=== PATIENT | male | born 1990 | race Caucasian/White ===

== ENCOUNTER 2022-06-16 12:35 | Emergency (ER) | payer BC ==
--- OUTSIDE RECORDS SUMMARY | 2022-06-16 12:39 | XMS REPORT | Continuity of Care Document ---
:1990 Author Organization [facility] t Address [address] [place] [address] Care Team Providers Name Role Phone Terrell West Primary Care Physician [phone] Problems This patient has no known problems. Allergies, Adverse Reactions, Alerts This patient has no known allergies or adverse reactions. Medications Ordered Filled Start Stop Current Ordering Indication Dosage Frequency Signature Comments Components Source Medication Medication Date Date Medication? Clinician (SIG) Name Name TAKE 1 2021-0 No 20 TABLET 9-28 TWICE 00:00: DAILY. 00 Dose 2021-0 No Unknown 9-28 00:00: 00 TAKE 1 2021-0 No TABLET 9-28 TWICE 00:00: DAILY. 00 Dose 2021-0 No Unknown 9-07 00:00: 00 Dose 2021-0 No Unknown 9-07 00:00: 00 Dose 2021-0 No Unknown 9-07 00:00: 00 INJECT 2021-0 No 100 15-20 UNITS 9-07 BELOW THE 00:00: SKIN TWICE 00 A DAY Vital Signs Vital Name Observation Time Observation Value Comments Source BP Systolic 2022-05-30 08:37:00 BP Diastolic 2022-05-30 08:37:00 Weight Measured 2022-05-30 08:37:00 205.40 pounds Height Measured 2022-05-30 08:37:00 71.00 inches Body Temperature 2022-05-30 08:37:00 Heart Rate 2022-05-30 08:37:00 Respiratory Rate 2022-05-30 08:37:00 BP Systolic 2022-05-24 13:34:00 122 mm[Hg] BP Diastolic 2022-05-24 13:34:00 83 mm[Hg] Weight Measured 2022-05-24 13:34:00 205.40 pounds Height Measured 2022-05-24 13:34:00 71.00 inches Body Temperature 2022-05-24 13:34:00 98.30 degrees Heart Rate 2022-05-24 13:34:00 65.00 /min Respiratory Rate 2022-05-24 13:34:00 17.00 /min BP Systolic 2022-05-17 16:30:00 115 mm[Hg] BP Diastolic 2022-05-17 16:30:00 74 mm[Hg] Weight Measured 2022-05-17 16:30:00 201.00 pounds Height Measured 2022-05-17 16:30:00 71.00 inches Body Temperature 2022-05-17 16:30:00 98.40 degrees Heart Rate 2022-05-17 16:30:00 73.00 /min Respiratory Rate 2022-05-17 16:30:00 17.00 /min Respiratory Rate 2022-04-26 11:08:00 BP Systolic 2022-04-26 11:08:00 113 mm[Hg] BP Diastolic 2022-04-26 11:08:00 77 mm[Hg] Weight Measured 2022-04-26 11:08:00 199.00 pounds Height Measured 2022-04-26 11:08:00 71.00 inches Body Temperature 2022-04-26 11:08:00 98.40 degrees Heart Rate 2022-04-26 11:08:00 69.00 /min Procedures This patient has no known procedures. Plan of Care Planned Activity Planned Date Details Comments Source Goal Plan of Care Note [code = 29835-6] Goal Plan of Care Note [code = 33126-3] Goal Plan of Care Note [code = 91751-6] Goal Plan of Care Note [code = 98249-6] Goal Plan of Care Note [code = 15611-7] Goal Plan of Care Note [code = 25198-2] Goal Plan of Care Note [code = 41983-8] Goal Plan of Care Note [code = 58905-4] Goal Plan of Care Note [code = 82698-3] Goal Plan of Care Note [code = 28460-9] Goal Plan of Care Note [code = 96745-1] Goal Plan of Care Note [code = 27376-8] Goal Plan of Care Note [code = 10844-7] Goal Plan of Care Note [code = 01533-0] Goal Plan of Care Note [code = 92235-8] Goal Plan of Care Note [code = 79291-1] Goal Plan of Care Note [code = 40011-9] Goal Plan of Care Note [code = 94505-3] Goal Plan of Care Note [code = 58267-2] Goal Plan of Care Note [code = 76143-4] Goal Plan of Care Note [code = 05674-6] Goal Plan of Care Note [code = 21158-4] Goal Plan of Care Note [code = 93995-5] Goal Plan of Care Note [code = 84901-3] Goal Plan of Care Note [code = 98153-5] Goal Plan of Care Note [code = 11331-7] Goal Plan of Care Note [code = 90546-1] Goal Plan of Care Note [code = 17533-1] Goal Plan of Care Note [code = 43296-1] Goal Plan of Care Note [code = 56007-1] Goal Plan of Care Note [code = 82734-9] Goal Plan of Care Note [code = 53598-6] Goal Plan of Care Note [code = 11682-5] Encounters Start End Encounter Admission Attending Care Care Encounter Source Date/Time Date/Time Type Type Clinicians Facility Department ID 2022-05-30 2022-05-30 Outpatient [id number] 00:00:00 00:00:00 Visit [id number] -08a1-6lb 1i7-2wrxo0 ph69x1tx6 6f0de3 2022-05-24 2022-05-24 Outpatient [facility] [id number] Johann 13:25:23 13:25:23 [id number] F Dylon 2022-05-24 2022-05-24 Outpatient [id number] 00:00:00 00:00:00 Visit 9e11-6z73 w38-4l32-1 -8616-bb7 616-bb7bb5 [id number] 3rf160 2022-05-17 2022-05-17 Outpatient [id number] 00:00:00 00:00:00 Visit 24s6-5em5 3w3-2ik3-9 -8r8u-ayn q8r-iilc80 i23racpbj [facility] 2022-04-26 2022-04-26 Outpatient [id number] 00:00:00 00:00:00 Visit i49b-75mo 91d-41dc-9 -9142-545 [id number] hg2631 Results Test Description Test Time Test Comments Results Result Comments Source CULTURE, URINE 2022-05-27 SPECIMEN NUMBER: 16:24:13 [id number] CULTURE, URINE SPECIMEN NUMBER: [id number] SPECIMEN COMMENT: URINE SOURCE: URINE REPORT STATUS: FINAL ISOLATE NUMBER 1: ORGANISM: 05/26/2022 >100,000 CFU/ML GRAM NEGATIVE BACILLI IDENTIFICATION: 05/27/2022 PROTEUS MIRABILIS P. MIRABILIS AMOX ICILLIN/CA SENSITIVE <=8/4AMPICILLIN RESISTANT >16CEFAZOLIN SENSITIVE 4CEFTRIAXONE SENSITIVE <=1CIPROFLOXACIN SENSITIVE <=1LEVOFLOXACIN SENSITIVE <=2NITROFURANTOIN RESISTANT >64PIP/TAZOBAC SENSITIVE <=16TETRACYCLINE RESISTANT >8TOBRAMYCIN RESISTANT >8TRIMETH/SULFA RESISTANT >2/38 NOTE: NUMBERS DISPLAYED REPRESENT MINIMUM INHIBITORY CONCENTRATION (ALINE) WHICH IS EXPRESSED IN MCG/ML. CULTURE, URINE 2022-05-27 00:00:00 Test Item Value Reference Range Interpretation Comme nts CULTURE, URINE (test code = 41564) SPECIMEN NUMBER: [id number] CULTURE, [id number] 00:00:00 Test Item Value Reference Range Interpretation Comments CULTURE, URINE (test SPECIMEN NUMBER: code = 96902) [id number] CULTURE, [id number] 00:00:00 Test Item Value Reference Range Interpretation Comments CULTURE, URINE (test SPECIMEN NUMBER: code = 92505) [id number] CULTURE, [id number] 00:00:00 Test Item Value Reference Range Interpretation Comments CULTURE, URINE (test SPECIMEN NUMBER: code = 68134) [id number] CT/NG, NAAT, [id number] 19:07:28 Test Item Value Reference Range Interpretation Comments GONORRHEA, NAAT NEGATIVE NEGATIVE IMPORTA NT NOTICE: SEE (test code = [place] [address]) [email or web address] Note: Assay methodology is nucleic acid amplification b y orthodontist assistant m ediated amplification ( TMA) utilizing the A ptima Combo 2 Assay. CHLAMYDIA, NAAT NEGATIVE NEGATIVE IMPORTA NT NOTICE: SEE (test code = [place] [address]) [email or web address] Note: Assay methodology is nucleic acid amplification b y orthodontist assistant m ediated amplification ( TMA) utilizing the A ptima Combo 2 Assay. UNLESS OTHERWISE INDICATED, ALL TESTING PERFORMED [facility] [address] [place] [id number] [place] [address] DIRECTOR: KUSHAL AGUSTIN M.D. [place] NUMBER [id number] CAP ACCREDITATION N O. [id number] CT/NG, TMA, [id number] 00:00:00 Test Item Value Reference Range Interpretation Comments GONORRHEA, NAAT (test code = 29139) NEGATIVE CHLAMYDIA, NAAT (test code = 42371) NEGATIVE CT/NG, TMA, [id number] 00:00:00 Test Item Value Reference Range Interpretation Comments GONORRHEA, NAAT (test code = 53213) NEGATIVE CHLAMYDIA, NAAT (test code = 60252) NEGATIVE CT/NG, TMA, [id number] 00:00:00 Test Item Value Reference Range Interpretation Comments GONORRHEA, NAAT (test code = 17758) NEGATIVE CHLAMYDIA, NAAT (test code = 39350) NEGATIVE CT/NG, TMA, [id number] 00:00:00 Test Item Value Reference Range Interpretation Comments GONORRHEA, NAAT (test code = 20508) NEGATIVE CHLAMYDIA, NAAT (test code = 23200) NEGATIVE H. PYLORI (BREATH)2022-05-19 15:05:57 Test Item Value Reference Range Interpretation Comments H. PYLORI (BREATH) (test code = NEGATIVE NEGATIVE 17664) [id number] 04:16:31 Test Item Value Reference Range Interpretation Comments AMYLASE (test code = 2205) 37 U/L 28-100 [id number] 04:16:31 Test Item Value Reference Range Interpretation Comments LIPASE (test code = 18 U/L 13-60 UNLESS OTHERWISE 2057) INDICATED, ALL TESTING PERFORMED [facility] [address] [place] [address] [facility] DIRECTOR: KUSHAL AGUSTIN M.D. CLIA NUMBER [id number] CAP ACCREDITATION N O. [id number] 00:00:00 Test Item Value Reference Range Interpretation Comments AMYLASE (test code = 2205) 37 U/L [id number] 00:00:00 Test Item Value Reference Range Interpretation Comments LIPASE (test code = 2057) 18 U/L [id number] 00:00:00 Test Item Value Reference Range Interpretation Comments LIPASE (test code = 2057) 18 U/L [id number] 00:00:00 Test Item Value Reference Range Interpretation Comments LIPASE (test code = 2057) 18 U/L H. PYLORI (BREATH)2022-05-19 00:00:00 Test Item Value Reference Range Interpretation Comments H. PYLORI (BREATH) (test code = NEGATIVE 09726) H. PYLORI (BREATH)2022-05-19 00:00:00 Test Item Value Reference Range Interpretation Comments H. PYLORI (BREATH) (test code = NEGATIVE 44081) [id number] 00:00:00 Test Item Value Reference Range Interpretation Comments AMYLASE (test code = 2205) 37 U/L [id number] 00:00:00 Test Item Value Reference Range Interpretation Comments AMYLASE (test code = 2205) 37 U/L [id number] 00:00:00 Test Item Value Reference Range Interpretation Comments LIPASE (test code = 2057) 18 U/L [id number] 00:00:00 Test Item Value Reference Range Interpretation Comments LIPASE (test code = 2057) 18 U/L [id number] 00:00:00 Test Item Value Reference Range Interpretation Comments LIPASE (test code = 2057) 18 U/L H. PYLORI (BREATH)2022-05-19 00:00:00 Test Item Value Reference Range Interpretation Comments H. PYLORI (BREATH) (test code = NEGATIVE 41337) H. PYLORI (BREATH)2022-05-19 00:00:00 Test Item Value Reference Range Interpretation Comments H. PYLORI (BREATH) (test code = NEGATIVE 39153) [id number] 00:00:00 Test Item Value Reference Range Interpretation Comments AMYLASE (test code = 2205) 37 U/L HEMOGLOBIN [id number] 23:37:11 Test Item Value Reference Range Interpretation Comments HEMOGLOBIN A1c (test 10.4 % 4.2-5.6 H AMERI CAN DIABETES code = 59288) ASSOCIATION IDELINES FOR HGB A1C: PREDIABETES/INC REASED RISK . . . . . . . 5 .7-6.4% DIAGNOSIS OF DI ABETES . . . . . . . . . >=6 .5% WITH CONFIRMATION OR APPROPRIATE SYMPTOMS NOTE: ASSAY MAY BE AFFECTED BY HEMOGLOBINOPATH IES (SICKLE CELL ANEMIA, S- C DISEASE, OTHERS) OR CHAUNCEY FICIALLY LOWERED BY DECR EASED RED CELL SURVIVAL ( HEMOLYTIC ANEMIAS, BLOOD LOSS, ETC.). CONSIDER ALTERN ATE TESTING OR LABORATORY C ONSULTATION. UNLESS OTHERWIS E INDICATED, ALL TESTING PER FORMED ATCLINICAL PATH [facility]. [address] [place] [address] LABORATORY DIRE CTOR: Lelo SOLOMON. CLIA NUMBER [id number] CAP ACCREDITATION N O. [id number] COMPREHENSIVE METABOLIC [id number] 06:29:07 Test Item Value Reference Range Interpretation Comments GLUCOSE (test code = 264 MG/DL 70-99 H 2216) BUN (test code = 9 MG/DL 6-20 2207) CREATININE (test 0.68 MG/DL 0.80-1.40 L code = 2214) eGFR (2020 CKD-EPI) 127 >60 (test code = 14118) ML/MIN/1.73 CALC BUN/CREAT (test 13 RATIO 6-28 code = 2235) SODIUM (test code = 143 MEQ/L 874-316 4968) POTASSIUM (test code 4.6 MEQ/L 3.5-5.4 = 2228) CHLORIDE (test code 105 MEQ/L 95-107 = 2215) CARBON DIOXIDE (test 24 MEQ/L 19-31 code = 2206) CALCIUM (test code = 9.3 MG/DL 8.5-10.5 2208) PROTEIN, TOTAL (test 6.8 G/DL 6.1-8.3 code = 2229) ALBUMIN (test code = 4.1 G/DL 3.5-5.2 2200) CALC GLOBULIN (test 2.7 G/DL 1.9-3.7 code = 2240) CALC A/G RATIO (test 1.5 RATIO 1.0-2.6 code = 2234) BILIRUBIN, TOTAL 0.4 MG/DL See_Comment [Automated message] (test code = 220) The syste m which generated this result transmit stephen reference range : <=1.2. The refe rence range was not u sed to interpret th is result as normal/abnormal . ALKALINE PHOSPHATASE 76 U/L 40-112 (test code = 2203) AST (test code = 17 U/L 9-50 2217) ALT (test code = 20 U/L 5-50 2218) LIPID [id number] 06:29:07 Test Item Value Reference Range Interpretation Comments CHOLESTEROL (test 172 MG/DL <200 code = 2210) TRIGLYCERIDES (test 84 MG/DL <150 code = 2232) HDL CHOLESTEROL (test 39 MG/DL >39 L code = 2220) CALC LDL CHOL (test 115 MG/DL <100 H NOTE: C ALCULATED LDL code = 2237) IS BASED ON MELQUIADES-LLAMAS METHOD WHICHINCLUDES ADJUSTABLE TRIGLYCERIDE:VL DL CHOLESTEROL RAT IO.THIS FACTOR VARIES B Y MEASURED TRIGLY CERIDE AND NON-HDLCHOL ESTEROL CONCENTRATIONS WITH INCREASED CALCU LATED LDL SEENIN HIGH ER TRIGLYCERIDE OR LOWER NON-HDL SPECIME NS. FOR MOREINFORMATION , SEE CLIENT ANNOUNCE MENT AT [email or web address] RISK RATIO LDL/HDL 2.95 RATIO <3.55 (test code = 2238) LIPID [id number] 00:00:00 Test Item Value Reference Range Interpretation Comments CHOLESTEROL (test code = 2210) 172 MG/DL TRIGLYCERIDES (test code = 2232) 84 MG/DL HDL CHOLESTEROL (test code = 2220) 39 MG/DL CALC LDL CHOL (test code = 2237) 115 MG/DL RISK RATIO LDL/HDL (test code = 2.95 RATIO 2238) HEMOGLOBIN [id number] 00:00:00 Test Item Value Reference Range Interpretation Comments HEMOGLOBIN A1c (test code = 47637) 10.4 % HEMOGLOBIN [id number] 00:00:00 Test Item Value Reference Range Interpretation Comments HEMOGLOBIN A1c (test code = 94088) 10.4 % HEMOGLOBIN [id number] 00:00:00 Test Item Value Reference Range Interpretation Comments HEMOGLOBIN A1c (test code = 12279) 10.4 % COMPREHENSIVE METABOLIC [id number] 00:00:00 Test Item Value Reference Range Interpretation Comments GLUCOSE (test code = 2217) 264 MG/DL BUN (test code = 2208) 9 MG/DL CREATININE (test code = 2214) 0.68 MG/DL eGFR (2020 CKD-EPI) (test 127 ML/MIN/1.73 code = 78532) CALC BUN/CREAT (test code = 13 RATIO 2235) SODIUM (test code = 2231) 143 MEQ/L POTASSIUM (test code = 2228) 4.6 MEQ/L CHLORIDE (test code = 2215) 105 MEQ/L CARBON DIOXIDE (test code = 24 MEQ/L 2205) CALCIUM (test code = 2209) 9.3 MG/DL PROTEIN, TOTAL (test code = 6.8 G/DL 2228) ALBUMIN (test code = 2201) 4.1 G/DL CALC GLOBULIN (test code = 2.7 G/DL 2239) CALC A/G RATIO (test code = 1.5 RATIO 2233) BILIRUBIN, TOTAL (test code = 0.4 MG/DL 2206) ALKALINE PHOSPHATASE (test 76 U/L code = 2204) AST (test code = 2218) 17 U/L ALT (test code = 2219) 20 U/L COMPREHENSIVE METABOLIC [id number] 00:00:00 Test Item Value Reference Range Interpretation Comments GLUCOSE (test code = 2217) 264 MG/DL BUN (test code = 2208) 9 MG/DL CREATININE (test code = 2214) 0.68 MG/DL eGFR (2020 CKD-EPI) (test 127 ML/MIN/1.73 code = 28861) CALC BUN/CREAT (test code = 13 RATIO 2235) SODIUM (test code = 2231) 143 MEQ/L POTASSIUM (test code = 2228) 4.6 MEQ/L CHLORIDE (test code = 2215) 105 MEQ/L CARBON DIOXIDE (test code = 24 MEQ/L 220) CALCIUM (test code = 2209) 9.3 MG/DL PROTEIN, TOTAL (test code = 6.8 G/DL 2228) ALBUMIN (test code = 2201) 4.1 G/DL CALC GLOBULIN (test code = 2.7 G/DL 2239) CALC A/G RATIO (test code = 1.5 RATIO 2234) BILIRUBIN, TOTAL (test code = 0.4 MG/DL 2206) ALKALINE PHOSPHATASE (test 76 U/L code = 2204) AST (test code = 2218) 17 U/L ALT (test code = 2219) 20 U/L LIPID [id number] 00:00:00 Test Item Value Reference Range Interpretation Comments CHOLESTEROL (test code = 2210) 172 MG/DL TRIGLYCERIDES (test code = 2232) 84 MG/DL HDL CHOLESTEROL (test code = 2220) 39 MG/DL CALC LDL CHOL (test code = 2237) 115 MG/DL RISK RATIO LDL/HDL (test code = 2.95 RATIO 2238) LIPID [id number] 00:00:00 Test Item Value Reference Range Interpretation Comments CHOLESTEROL (test code = 2210) 172 MG/DL TRIGLYCERIDES (test code = 2232) 84 MG/DL HDL CHOLESTEROL (test code = 2220) 39 MG/DL CALC LDL CHOL (test code = 2237) 115 MG/DL RISK RATIO LDL/HDL (test code = 2.95 RATIO 2238) HEMOGLOBIN [id number] 00:00:00 Test Item Value Reference Range Interpretation Comments HEMOGLOBIN A1c (test code = 37669) 10.4 % HEMOGLOBIN [id number] 00:00:00 Test Item Value Reference Range Interpretation Comments HEMOGLOBIN A1c (test code = 34325) 10.4 % HEMOGLOBIN [id number] 00:00:00 Test Item Value Reference Range Interpretation Comments HEMOGLOBIN A1c (test code = 85350) 10.4 % COMPREHENSIVE METABOLIC [id number] 00:00:00 Test Item Value Reference Range Interpretation Comments GLUCOSE (test code = 2217) 264 MG/DL BUN (test code = 2208) 9 MG/DL CREATININE (test code = 2214) 0.68 MG/DL eGFR (2020 CKD-EPI) (test 127 ML/MIN/1.73 code = 99423) CALC BUN/CREAT (test code = 13 RATIO 2235) SODIUM (test code = 2231) 143 MEQ/L POTASSIUM (test code = 2228) 4.6 MEQ/L CHLORIDE (test code = 2215) 105 MEQ/L CARBON DIOXIDE (test code = 24 MEQ/L 2205) CALCIUM (test code = 2209) 9.3 MG/DL PROTEIN, TOTAL (test code = 6.8 G/DL 2228) ALBUMIN (test code = 2201) 4.1 G/DL CALC GLOBULIN (test code = 2.7 G/DL 2240) CALC A/G RATIO (test code = 1.5 RATIO 2234) BILIRUBIN, TOTAL (test code = 0.4 MG/DL 2206) ALKALINE PHOSPHATASE (test 76 U/L code = 2204) AST (test code = 2218) 17 U/L ALT (test code = 2219) 20 U/L COMPREHENSIVE METABOLIC [id number] 00:00:00 Test Item Value Reference Range Interpretation Comments GLUCOSE (test code = 2217) 264 MG/DL BUN (test code = 2208) 9 MG/DL CREATININE (test code = 2214) 0.68 MG/DL eGFR (2020 CKD-EPI) (test 127 ML/MIN/1.73 code = 05824) CALC BUN/CREAT (test code = 13 RATIO 2235) SODIUM (test code = 2231) 143 MEQ/L POTASSIUM (test code = 2228) 4.6 MEQ/L CHLORIDE (test code = 2215) 105 MEQ/L CARBON DIOXIDE (test code = 24 MEQ/L 2205) CALCIUM (test code = 2209) 9.3 MG/DL PROTEIN, TOTAL (test code = 6.8 G/DL 2228) ALBUMIN (test code = 2201) 4.1 G/DL CALC GLOBULIN (test code = 2.7 G/DL 2240) CALC A/G RATIO (test code = 1.5 RATIO 2234) BILIRUBIN, TOTAL (test code = 0.4 MG/DL 2206) ALKALINE PHOSPHATASE (test 76 U/L code = 2204) AST (test code = 2218) 17 U/L ALT (test code = 2219) 20 U/L LIPID [id number] 00:00:00 Test Item Value Reference Range Interpretation Comments CHOLESTEROL (test code = 2210) 172 MG/DL TRIGLYCERIDES (test code = 2232) 84 MG/DL HDL CHOLESTEROL (test code = 2220) 39 MG/DL CALC LDL CHOL (test code = 2237) 115 MG/DL RISK RATIO LDL/HDL (test code = 2.95 RATIO 2238) LIPID [id number] 00:00:00 Test Item Value Reference Range Interpretation Comments CHOLESTEROL (test code = 2210) 172 MG/DL TRIGLYCERIDES (test code = 2232) 84 MG/DL HDL CHOLESTEROL (test code = 2220) 39 MG/DL CALC LDL CHOL (test code = 2237) 115 MG/DL RISK RATIO LDL/HDL (test code = 2.95 RATIO 2238) HEMOGLOBIN [id number] 00:00:00 Test Item Value Reference Range Interpretation Comments HEMOGLOBIN A1c (test code = 97390) 10.4 % HEMOGLOBIN [id number] 00:00:00 Test Item Value Reference Range Interpretation Comments HEMOGLOBIN A1c (test code = 66733) 10.4 % HEMOGLOBIN [id number] 00:00:00 Test Item Value Reference Range Interpretation Comments HEMOGLOBIN A1c (test code = 06376) 10.4 % COMPREHENSIVE METABOLIC [id number] 00:00:00 Test Item Value Reference Range Interpretation Comments GLUCOSE (test code = 2217) 264 MG/DL BUN (test code = 2208) 9 MG/DL CREATININE (test code = 2214) 0.68 MG/DL eGFR (2020 CKD-EPI) (test 127 ML/MIN/1.73 code = 92573) CALC BUN/CREAT (test code = 13 RATIO 2235) SODIUM (test code = 2231) 143 MEQ/L POTASSIUM (test code = 2228) 4.6 MEQ/L CHLORIDE (test code = 2215) 105 MEQ/L CARBON DIOXIDE (test code = 24 MEQ/L 2205) CALCIUM (test code = 2209) 9.3 MG/DL PROTEIN, TOTAL (test code = 6.8 G/DL 2228) ALBUMIN (test code = 2201) 4.1 G/DL CALC GLOBULIN (test code = 2.7 G/DL 2239) CALC A/G RATIO (test code = 1.5 RATIO 2234) BILIRUBIN, TOTAL (test code = 0.4 MG/DL 2206) ALKALINE PHOSPHATASE (test 76 U/L code = 2204) AST (test code = 2218) 17 U/L ALT (test code = 2219) 20 U/L COMPREHENSIVE METABOLIC [id number] 00:00:00 Test Item Value Reference Range Interpretation Comments GLUCOSE (test code = 2217) 264 MG/DL BUN (test code = 2208) 9 MG/DL CREATININE (test code = 2214) 0.68 MG/DL eGFR (2020 CKD-EPI) (test 127 ML/MIN/1.73 code = 90989) CALC BUN/CREAT (test code = 13 RATIO 2235) SODIUM (test code = 2231) 143 MEQ/L POTASSIUM (test code = 2228) 4.6 MEQ/L CHLORIDE (test code = 2215) 105 MEQ/L CARBON DIOXIDE (test code = 24 MEQ/L 2205) CALCIUM (test code = 220) 9.3 MG/DL PROTEIN, TOTAL (test code = 6.8 G/DL 2228) ALBUMIN (test code = 220) 4.1 G/DL CALC GLOBULIN (test code = 2.7 G/DL 2239) CALC A/G RATIO (test code = 1.5 RATIO 2233) BILIRUBIN, TOTAL (test code = 0.4 MG/DL 2206) ALKALINE PHOSPHATASE (test 76 U/L code = 2204) AST (test code = 2218) 17 U/L ALT (test code = 2219) 20 U/L LIPID [id number] 00:00:00 Test Item Value Reference Range Interpretation Comments CHOLESTEROL (test code = 2210) 172 MG/DL TRIGLYCERIDES (test code = 2232) 84 MG/DL HDL CHOLESTEROL (test code = 2220) 39 MG/DL CALC LDL CHOL (test code = 2237) 115 MG/DL RISK RATIO LDL/HDL (test code = 2.95 RATIO 8)
[2022-06-16 13:10] LABS: Absolute Lymphocytes (CBC) 1.9 K/uL (0.7-4.9); Hematocrit 42.7 % (39.6-49.0); Lymphocytes % 32.8 % (15.3-44.8); MCV 89.5 fL (80-100); MPV 7.6 fL (7.6-11.3); RBC Red Blood Cell Count 4.77 M/uL (4.33-5.43)
[2022-06-16 13:26] LABS: Potassium 3.9 mmol/L (3.5-5.1)
[2022-06-16] MEDS ORDERED: NA CHLORIDE 0.9% 1,000 ML ONE (13:27)
[2022-06-16] MEDS ORDERED: ONDANSETRON 4 MG/2 ML VIAL ONE (14:04)
--- NOTE | 2022-06-16 14:43 | ER ---
Nurse's Notes [facility] Name: Altaf Perez Age: 32 yrs Sex: Male : 1990 Arrival Date: 06/16/2022 Time: 12:37 Bed 11 Private MD: Diagnosis: Influenza Presentation: 06/16 12:54 Chief complaint: Patient states: Pt reports fatigue, nausea, sore throat, body aches, kb3 frequent urination, headache xseveral days. Unknown temp at home BGL this morning 147, took 10u of Novolog after eating. BGL 223 in triage. Coronavirus screen: Vaccine status: Patient reports being unvaccinated. Client denies travel out of the [place] in the last 14 days. Ebola Screen: Patient negative for fever greater than or equal to 101.5 degrees Fahrenheit, and additional compatible Ebola Virus Disease symptoms Patient denies exposure to infectious person. Patient denies travel to an Ebola-affected area in the 21 days before illness onset. Initial Sepsis Screen: Does the patient meet any 2 criteria? No. Patient's initial sepsis screen is negative. Does the patient have a suspected source of infection? No. Patient's initial sepsis screen is negative. Risk Assessment: Do you want to hurt yourself or someone else? Patient reports no desire to harm self or others. Onset of symptoms was June 11, 2022. 12:54 Method Of Arrival: Ambulatory kb3 12:54 Acuity: CHRISTIANA 3 kb3 Triage Assessment: 13:00 General: Appears in no apparent distress. ill, Behavior is calm, cooperative. Pain: kb3 Complains of pain in head, chest, right arm, left arm, right leg and left leg Pain does not radiate. Pain currently is 6 out of 10 on a pain scale. Quality of pain is described as aching. Historical: - Allergies: 13:00 No Known Allergies; kb3 - PMHx: 13:00 IDDM; Hypercholesterolemia; kb3 - PSHx: 13:00 None; kb3 - Immunization history:: Adult Immunizations up to date, Client reports having NOT received the Covid vaccine. Last tetanus immunization: up to date. - Social history:: Smoking status: Patient denies any tobacco usage or history of. Screenin:01 Abuse screen: Denies threats or abuse. Denies injuries from another. Nutritional hb screening: No deficits noted. Tuberculosis screening: No symptoms or risk factors identified. Fall Risk None identified. Assessment: 14:00 Reassessment: Patient appears in no apparent distress at this time. hb 15:00 Reassessment: Patient appears in no apparent distress at this time. Patient and/or hb family updated on plan of care and expected duration. Pain level reassessed. Patient is alert, oriented x 3, equal unlabored respirations, skin warm/dry/pink. Vital Signs: 12:54 BP 129 / 74; Pulse 82; Resp 16; Temp 98; Pulse Ox 100% ; Weight 89.81 kg; Height 5 ft. kb3 11 in. (180.34 cm); Pain 6/10; 14:30 BP 117 / 68; Pulse 82; Resp 16; Pulse Ox 99% on R/A; hb 12:54 Body Mass Index 27.61 (89.81 kg, 180.34 cm) kb3 ED Course: 12:37 Patient arrived in ED. as 12:41 Faustino López PA is PHCP. [facility] 12:41 David Hardy DO is Attending Physician. [facility] 13:00 Triage completed. kb3 13:00 Arm band placed on right wrist. kb3 13:15 Patient has correct armband on for positive identification. hb 13:20 Inserted saline lock: 20 gauge in right antecubital area, using aseptic technique. zm Blood collected. 13:20 SARS-COV-2 RT PCR (Document "Date of Onset" if Symptomatic) Sent. zm 13:20 Strep Sent. zm 13:20 Influenza Screen (a \\T\\ B) Sent. zm 13:20 BMP Sent. zm 13:21 SARS-COV-2 RT PCR (Document "Date of Onset" if Symptomatic) Sent. zm 13:25 Caterina Rothman, RN is Primary Nurse. hb 15:01 No provider procedures requiring assistance completed. IV discontinued, intact, hb bleeding controlled, No redness/swelling at site. Administered Medications: 13:40 Drug: NS 0.9% 1000 ml Route: IV; Rate: 1 bolus; Site: right antecubital; hb 14:44 Follow up: Response: No adverse reaction; IV Status: Completed infusion; IV Intake: hb 1000ml 14:05 Drug: Zofran (Ondansetron) 4 mg Route: IVP; Site: right antecubital; hb 15:00 Follow up: Response: No adverse reaction hb 14:44 Drug: Tamiflu (oseltamivir) 75 mg Route: PO; hb 15:00 Follow up: Response: Medication administered at discharge. hb Medication: 15:02 VIS not applicable for this client. hb Point of Care Testing: Blood Glucose: 13:02 Blood Glucose: 223 mg/dL; kb3 Ranges: Intake: 14:44 IV: 1000ml; Total: 1000ml. hb Outcome: 14:42 Discharge ordered by MD. valente 15:01 Discharged to home ambulatory. hb 15:01 Condition: stable 15:01 Discharge instructions given to patient, Instructed on discharge instructions, follow up and referral plans. medication usage, Demonstrated understanding of instructions, follow-up care, medications, Prescriptions given X 1. 15:02 Patient left the ED. hb Signatures: Faustino López PA PA jmm Martinez, Amelia as Baxter, Heather, RN RN Sheryl Escobar Kelly, RN RN kb3
--- NOTE | 2022-06-16 14:43 | EDPHYS ---
Physician Documentation [facility] Name: Altaf Perez Age: 32 yrs Sex: Male : 1990 Arrival Date: 06/16/2022 Time: 12:37 Bed 11 Private MD: ED Physician David Hardy HPI: 06/16 13:01 This 32 yrs old Male presents to ER via Ambulatory with complaints of dka. [facility] 13:01 Onset: The symptoms/episode began/occurred gradually, 1 day(s) ago. This is a [facility] 32-year-old male with history of type 1 diabetes and presents emerged part with complaints of body aches, nausea, increased urination. Patient is concerned he might be in DKA. Also complains of sore throat. Denies shortness of breath.. Historical: - Allergies: 13:00 No Known Allergies; kb3 - PMHx: 13:00 IDDM; Hypercholesterolemia; kb3 - PSHx: 13:00 None; kb3 - Immunization history:: Adult Immunizations up to date, Client reports having NOT received the Covid vaccine. Last tetanus immunization: up to date. - Social history:: Smoking status: Patient denies any tobacco usage or history of. ROS: 13:01 Constitutional: Positive for body aches. [facility] 13:01 ENT: Positive for sore throat. 13:01 Respiratory: Positive for cough. 13:01 Abdomen/GI: Positive for nausea. 13:01 All other systems are negative. Exam: 13:01 Constitutional: This is a well developed, well nourished patient who is awake, alert, jmm and in no acute distress. Head/Face: atraumatic. Eyes: EOMI, no conjunctival erythema appreciated ENT: Moist Mucus Membranes Neck: Trachea midline, Supple Chest/axilla: Normal chest wall appearance and motion. Cardiovascular: Regular rate and rhythm. No edema appreciated Respiratory: Normal respirations, no respiratory distress appreciated Abdomen/GI: Non distended Back: Normal ROM Skin: General appearance color normal MS/ Extremity: Moves all extremities, no obvious deformities appreciated, no edema noted to the lower extremities Neuro: Awake and alert Psych: Behavior is normal, Mood is normal, Patient is cooperative and pleasant Vital Signs: 12:54 BP 129 / 74; Pulse 82; Resp 16; Temp 98; Pulse Ox 100% ; Weight 89.81 kg; Height 5 ft. kb3 11 in. (180.34 cm); Pain 6/10; 14:30 BP 117 / 68; Pulse 82; Resp 16; Pulse Ox 99% on R/A; hb 12:54 Body Mass Index 27.61 (89.81 kg, 180.34 cm) kb3 MDM: 12:59 Patient medically screened. [facility] 14:40 Data reviewed: vital signs, nurses notes. Counseling: I had a detailed discussion with [facility] the patient and/or guardian regarding: the historical points, exam findings, and any diagnostic results supporting the discharge/admit diagnosis, lab results, the need for outpatient follow up, to return to the emergency department if symptoms worsen or persist or if there are any questions or concerns that arise at home. ED course: Patient is alert and non toxic in appearance in the ED. No signs of resp distress. patient able to tolerate PO in the ED. Advised to follow up with pc p and otherwise given strict return precautions. . 06/16 12:45 Order name: BMP; Complete Time: 13:35 [facility] 06/16 12:45 Order name: CBC with Diff; Complete Time: 13:23 [facility] 06/16 12:45 Order name: Influenza Screen (a \\T\\ B); Complete Time: 13:54 [facility] 06/16 12:45 Order name: Strep; Complete Time: 13:54 [facility] 06/16 12:45 Order name: SARS-COV-2 RT PCR (Document "Date of Onset" if Symptomatic); Complete Time: [facility] 14:03 06/16 13:14 Order name: Glucose, Ancillary Testing; Complete Time: 13:23 [facility] 06/16 12:45 Order name: Saline Lock; Complete Time: 13:20 [facility] 06/16 13:53 Order name: Throat Culture EDNM Administered Medications: 13:40 Drug: NS 0.9% 1000 ml Route: IV; Rate: 1 bolus; Site: right antecubital; hb 14:44 Follow up: Response: No adverse reaction; IV Status: Completed infusion; IV Intake: hb 1000ml 14:05 Drug: Zofran (Ondansetron) 4 mg Route: IVP; Site: right antecubital; hb 15:00 Follow up: Response: No adverse reaction hb 14:44 Drug: Tamiflu (oseltamivir) 75 mg Route: PO; 15:00 Follow up: Response: Medication administered at discharge. Point of Care Testing: Blood Glucose: 13:02 Blood Glucose: 223 mg/dL; kb3 Ranges: Critical Glucose Levels:Adult <50 mg/dl or >400 mg/dl <40 mg/dl or >180 mg/dl Disposition: 13:44 Co-signature as Attending Physician, David Hardy DO I was immediately available on-site ms3 in the Emergency Department for consultation in the care of the patient.. Disposition Summary: 06/16/22 14:42 Discharge Ordered Location: Home jm Condition: Stable jm Diagnosis - Influenza jm Followup: jmm - With: Private Physician - When: 2 - 3 days - Reason: Recheck today's complaints, Continuance of care, Re-evaluation by your physician Discharge Instructions: - Discharge Summary Sheet jmm - Influenza, Adult [facility] Forms: - Medication Reconciliation Form [facility] - Thank You Letter [facility] - Antibiotic Education [facility] - Prescription Opioid Use [facility] - Work release form eb Prescriptions: - ondansetron 4 mg Oral tablet,disintegrating - take 1 tablet by ORAL route every 4-6 hours As needed; 20 tablet; Refills: 0, [facility] Product Selection Permitted Signatures: Dispatcher [employer] Faustino Silvestre PA PA [facility] Caterina Rothman, RN RN David Hardy DO DO ms3 Bhumika Timmons, MARVIN RN kb3
[2022-06-16] MEDS ORDERED: OSELTAMIVIR 75 MG CAP ONE (14:52)
[2022-06-16 15:29] VITALS: TEMP 98
[2022-06-16 15:30] VITALS: BP 117/68; O2SAT 99
== END 2022-06-16 15:02 | disposition home or self-care (01) ==
LOC: ER 12:35
DX: J11.1 Influenza due to unidentified influenza virus with other respiratory manifestations (principal); Z20.822 Contact with and (suspected) exposure to COVID-19; E10.9 Type 1 diabetes mellitus without complications
CPT/HCPCS: 96361; 87070; 85025; 80048; 36415; 82947; 87081; 87804 ×2; 96374; 99284; U0003; J7030; J2405

== ENCOUNTER 2022-08-09 05:55 | Emergency (ER) | payer BC ==
--- OUTSIDE RECORDS SUMMARY | 2022-08-09 05:59 | XMS REPORT | Continuity of Care Document ---
:1990 Author Organization [facility] t Address [address] [place] [address] Care Team Providers Name Role Phone Bina Ochoa Primary Care Physician [phone] Problems This patient has no known problems. Allergies, Adverse Reactions, Alerts This patient has no known allergies or adverse reactions. Medications Ordered Filled Start Stop Current Ordering Indication Dosage Frequency Signature Comments Components Source Medication Medication Date Date Medication? Clinician (SIG) Name Name TAKE 2021-08 No TABLET 2-13 DAILY. 00:00: 00 TAKE 2021-08 No CAPSULE BY 2-13 MOUTH DAILY 00:00: 00 LACTULOSE 2021-08 No ENCEPHALOPA 2-13 THY 10 00:00: GM/15ML 00 LACTULOSE ENCEPHALOPA THY 10 GM/15ML SOLN ONDANSETRON 2021-08 No 4 MG TBDP 2-13 00:00: 00 Dose 2021-08 No Unknown 2-13 00:00: 00 TAKE ONE 2021-08 No (1) 2-13 CAPSULE(S) 00:00: BY MOUTH 00 ONCE A DAY. TAKE ONE 2021-08 No (1) 2-13 TABLET(S) 00:00: BY MOUTH 00 TWICE A DAY NEEDED FOR PAIN FOR 10 DAYS. Dose 2021-08 No Unknown 2-13 00:00: 00 Dose 2021-08 No Unknown 2-13 00:00: 00 Dose 2021-08 No Unknown 2-13 00:00: 00 TAKE 1 2021-08 No TABLET BY 2-13 MOUTH EVERY 00:00: 4-6 HOURS 00 NEEDED TAKE No TABLET 9-28 TWICE 00:00: DAILY. 00 Dose No Unknown 9-28 00:00: 00 TAKE 1 2022-0 No 20 TABLET 9-28 TWICE 00:00: DAILY. 00 Dose 2021-0 No Unknown 05-17 00:00: 00 TAKE 1 2021-0 No TABLET 9-28 TWICE 00:00: DAILY. 00 Dose 2021-0 No Unknown 04-26 00:00: 00 Dose 2-0 No Unknown 04-26 00:00: 00 Dose 2-0 No Unknown 04-26 00:00: 00 INJECT 2-0 No 100 15-20 UNITS 9-07 BELOW THE 00:00: SKIN TWICE 00 A DAY Dose 2-0 No Unknown 04-26 00:00: 00 Dose 2-0 No Unknown 04-26 00:00: 00 Vital Signs Vital Name Observation Time Observation Value Comments Source BP Systolic 2022-08-02 13:51:00 122 mm[Hg] BP Diastolic 2022-08-02 13:51:00 78 mm[Hg] Weight Measured 2022-08-02 13:51:00 201.00 pounds Height Measured 2022-08-02 13:51:00 71.00 inches Body Temperature 2022-08-02 13:51:00 98.20 degrees Heart Rate 2022-08-02 13:51:00 67.00 /min Respiratory Rate 2022-08-02 13:51:00 18.00 /min BP Systolic 2022-06-27 14:38:00 121 mm[Hg] BP Diastolic 2022-06-27 14:38:00 70 mm[Hg] Weight Measured 2022-06-27 14:38:00 205.20 pounds Height Measured 2022-06-27 14:38:00 71.00 inches Body Temperature 2022-06-27 14:38:00 98.10 degrees Heart Rate 2022-06-27 14:38:00 78.00 /min Respiratory Rate 2022-06-27 14:38:00 BP Systolic 2022-05-30 08:37:00 BP Diastolic 2022-05-30 [...] Goal Plan of Care Note [code = 02772-3] Goal Plan of Care Note [code = 42886-2] Goal Plan of Care Note [code = 12480-4] Goal Plan of Care Note [code = 33472-3] Goal Plan of Care Note [code = 45567-4] Goal Plan of Care Note [code = 34783-1] Goal Plan of Care Note [code = 09256-7] Goal Plan of Care Note [code = 11106-1] Goal Plan of Care Note [code = 39797-5] Goal Plan of Care Note [code = 69009-1] Goal Plan of Care Note [code = 76673-2] Goal Plan of Care Note [code = 82064-2] Goal Plan of Care Note [code = 47302-7] Goal Plan of Care Note [code = 51237-2] Goal Plan of Care Note [code = 88842-6] Goal Plan of Care Note [code = 57518-9] Goal Plan of Care Note [code = 14589-9] Goal Plan of Care Note [code = 67206-7] Goal Plan of Care Note [code = 73845-2] Goal Plan of Care Note [code = 27996-4] Goal Plan of Care Note [code = 33863-8] Goal Plan of Care Note [code = 84581-6] Goal Plan of Care Note [code = 56798-5] Goal Plan of Care Note [code = 85340-3] Goal Plan of Care Note [code = 85055-1] Goal Plan of Care Note [code = 34039-8] Goal Plan of Care Note [code = 50287-6] Goal Plan of Care Note [code = 04819-4] Goal Plan of Care Note [code = 25283-9] Goal Plan of Care Note [code = 37189-4] Goal Plan of Care Note [code = 86883-0] Goal Plan of Care Note [code = 89273-8] Goal Plan of Care Note [code = 99833-6] Goal Plan of Care Note [code = 54115-8] Goal Plan of Care Note [code = 43181-4] Goal Plan of Care Note [code = 21858-7] Goal Plan of Care Note [code = 00032-1] Goal Plan of Care Note [code = 03167-2] Goal Plan of Care Note [code = 84289-0] Goal Plan of Care Note [code = 66840-9] Goal Plan of Care Note [code = 24261-3] Goal Plan of Care Note [code = 27554-3] Goal Plan of Care Note [code = 34663-3] Goal Plan of Care Note [code = 11619-2] Goal Plan of Care Note [code = 17364-0] Goal Plan of Care Note [code = 99829-1] Goal Plan of Care Note [code = 28474-4] Goal Plan of Care Note [code = 72178-2] Goal Plan of Care Note [code = 43329-7] Goal Plan of Care Note [code = 50977-4] Goal Plan of Care Note [code = 25073-3] Goal Plan of Care Note [code = 07858-6] Goal Plan of Care Note [code = 03300-1] Encounters Start End Encounter Admission Attending Care Care Encounter Source Date/Time Date/Time Type Type Clinicians Facility Department ID 2022-08-02 2022-08-02 Outpatient [facility] Johann 13:36:36 13:36:36 [id number] F Dylon 2022-08-02 2022-08-02 Outpatient [id number] 00:00:00 00:00:00 Visit o6gs-97dc 3eb-45ef-a -b8gv-9m3 6bc-6g989g 87mtk8949 tq4157 2022-06-27 2022-06-27 Outpatient [facility] Johann 14:28:49 14:28:49 [id number] F Dylon 2022-06-27 2022-06-27 Outpatient [id number] 00:00:00 00:00:00 Visit wt06-33ea i04-00go-z -dz04-hk0 h32-du888h 31cd93vhg d31cbc 2022-05-30 2022-05-30 Outpatient [id number] 00:00:00 00:00:00 Visit g782-9005 467-4492-8 -50v7-5zy 5m3-6trgn6 dk08v4by0 6f0de3 2022-05-24 2022-05-24 Outpatient [facility] [id number] Johann 13:25:23 13:25:23 [id number] F Dylon 2022-05-24 2022-05-24 Outpatient [id number] 00:00:00 00:00:00 Visit 7a35-6o72 k72-5n64-9 -8616-bb7 616-bb7bb5 hy72wc367 2bv821 2022-05-17 2022-05-17 Outpatient [id number]- [id number] r1uq79-4 00:00:00 00:00:00 Visit 22p8-8ft0 9l9-7or6-1 -8t1b-cke e1m-coff27 d52ifsygi ecaa 2022-04-26 2022-04-26 Outpatient [id number]- [id number] [id number] 00:00:00 00:00:00 Visit n93g-79ei 91d-41dc-9 -9142-545 142-545c34 k19wn9462 os2816 Results Test Description Test Time Test Comments Results Result Comments Source CULTURE, URINE 2022-05-27 SPECIMEN NUMBER: 16:24:13 [id number] CULTURE, URINE SPECIMEN NUMBER: [id number] SPECIMEN COMMENT: URINE SOURCE: URINE REPORT STATUS: [...] Comme nts CULTURE, URINE (test code = 78226) SPECIMEN NUMBER: [id number] CULTURE, [id number] 00:00:00 Test Item Value Reference Range Interpretation Comments CULTURE, URINE (test SPECIMEN NUMBER: code = 16731) [id number] CULTURE, [id number] 00:00:00 Test Item Value Reference Range Interpretation Comments CULTURE, URINE (test SPECIMEN NUMBER: code = 91844) [id number] CULTURE, [id number] 00:00:00 Test Item Value Reference Range Interpretation Comments CULTURE, URINE (test SPECIMEN NUMBER: code = 41759) [id number] CULTURE, [id number] 00:00:00 Test Item Value Reference Range Interpretation Comments CULTURE, URINE (test SPECIMEN NUMBER: code = 55407) [id number] CULTURE, [id number] 00:00:00 Test Item Value Reference Range Interpretation Comments CULTURE, URINE (test SPECIMEN NUMBER: code = 50501) [id number] CULTURE, [id number] 00:00:00 Test Item Value Reference Range Interpretation Comments CULTURE, URINE (test SPECIMEN NUMBER: code = 25574) [id number] CULTURE, [id number] 00:00:00 Test Item Value Reference Range Interpretation Comments CULTURE, URINE (test SPECIMEN NUMBER: code = 41657) [id number] CT/NG, NAAT, [id number] 19:07:28 Test Item Value Reference Range Interpretation Comments GONORRHEA, NAAT NEGATIVE NEGATIVE IMPORTA NT NOTICE: SEE (test code = [place] [address]) [email or web address] Note: Assay methodology is nucleic acid amplification b y diversified crops farmer m ediated amplification ( TMA) utilizing the A ptima Combo 2 Assay. CHLAMYDIA, NAAT NEGATIVE NEGATIVE IMPORTA NT NOTICE: SEE (test code = [place] [address]) [email or web address] Note: Assay methodology is nucleic acid amplification b y diversified crops farmer m ediated amplification ( TMA) utilizing the A ptima Combo 2 Assay. UNLESS OTHERWISE INDICATED, ALL TESTING PERFORMED [facility] [address] [place] [id number] [place] [address] DIRECTOR: KUSHAL AGUSTIN M.D. CLIA NUMBER [id number] CAP ACCREDITATION N O. [id number] CT/NG, TMA, [id number] 00:00:00 Test Item Value Reference Range Interpretation Comments GONORRHEA, NAAT (test code = 35502) NEGATIVE CHLAMYDIA, NAAT (test code = 45339) NEGATIVE CT/NG, TMA, [id number] 00:00:00 Test Item Value Reference Range Interpretation Comments GONORRHEA, NAAT (test code = 27289) NEGATIVE CHLAMYDIA, NAAT (test code = 27416) NEGATIVE CT/NG, TMA, [id number] 00:00:00 Test Item Value Reference Range Interpretation Comments GONORRHEA, NAAT (test code = 10409) NEGATIVE CHLAMYDIA, NAAT (test code = 50925) NEGATIVE CT/NG, TMA, [id number] 00:00:00 Test Item Value Reference Range Interpretation Comments GONORRHEA, NAAT (test code = 77107) NEGATIVE CHLAMYDIA, NAAT (test code = 63845) NEGATIVE CT/NG, TMA, [id number] 00:00:00 Test Item Value Reference Range Interpretation Comments GONORRHEA, NAAT (test code = 13525) NEGATIVE CHLAMYDIA, NAAT (test code = 63454) NEGATIVE CT/NG, TMA, [id number] 00:00:00 Test Item Value Reference Range Interpretation Comments GONORRHEA, NAAT (test code = 69750) NEGATIVE CHLAMYDIA, NAAT (test code = 73363) NEGATIVE CT/NG, TMA, [id number] 00:00:00 Test Item Value Reference Range Interpretation Comments GONORRHEA, NAAT (test code = 79393) NEGATIVE CHLAMYDIA, NAAT (test code = 64720) NEGATIVE CT/NG, TMA, [id number] 00:00:00 Test Item Value Reference Range Interpretation Comments GONORRHEA, NAAT (test code = 77518) NEGATIVE CHLAMYDIA, NAAT (test code = 14897) NEGATIVE H. PYLORI (BREATH)2022-05-19 15:05:57 Test Item Value Reference Range Interpretation Comments H. PYLORI (BREATH) (test code = NEGATIVE NEGATIVE 72853) [id number] 04:16:31 Test Item Value Reference Range Interpretation Comments AMYLASE (test code = 2205) 37 U/L 28-100 [id number] 04:16:31 Test Item Value Reference Range Interpretation Comments LIPASE (test code = 18 U/L 13-60 UNLESS OTHERWISE 2058) INDICATED, ALL TESTING PERFORMED [facility] [address] [place] [address], [place] [address] [facility] DIRECTOR: KUSHAL AGUSTIN M.D. CLIA NUMBER [id number] CAP ACCREDITATION N O. [id number] 00:00:00 Test Item Value Reference Range Interpretation Comments LIPASE (test code = 2057) 18 U/L [id number] 00:00:00 Test Item Value Reference Range Interpretation Comments LIPASE (test code = 2057) 18 U/L [id number] 00:00:00 Test Item Value Reference Range Interpretation Comments LIPASE (test code = 2057) 18 U/L H. PYLORI (BREATH)2022-05-19 00:00:00 Test Item Value Reference Range Interpretation Comments H. PYLORI (BREATH) (test code = NEGATIVE 38756) H. PYLORI (BREATH)2022-05-19 00:00:00 Test Item Value Reference Range Interpretation Comments H. PYLORI (BREATH) (test code = NEGATIVE 10485) [id number] 00:00:00 Test Item Value Reference Range Interpretation Comments AMYLASE (test code = 2205) 37 U/L [id number] 00:00:00 Test Item Value Reference Range Interpretation Comments AMYLASE (test code = 5) 37 U/L [id number] 00:00:00 Test Item Value Reference Range Interpretation Comments LIPASE (test code = 2057) 18 U/L [id number] 00:00:00 Test Item Value Reference Range Interpretation Comments LIPASE (test code = 2057) 18 U/L [id number] 00:00:00 Test Item Value Reference Range Interpretation Comments LIPASE (test code = 2057) 18 U/L H. PYLORI (BREATH)2022-05-19 00:00:00 Test Item Value Reference Range Interpretation Comments H. PYLORI (BREATH) (test code = NEGATIVE 90443) H. PYLORI (BREATH)2022-05-19 00:00:00 Test Item Value Reference Range Interpretation Comments H. PYLORI (BREATH) (test code = NEGATIVE 75182) [id number] 00:00:00 Test Item Value Reference Range Interpretation Comments AMYLASE (test code = 2205) 37 U/L [id number] 00:00:00 Test Item Value Reference Range Interpretation Comments AMYLASE (test code = 2205) 37 U/L [id number] 00:00:00 Test Item Value Reference Range Interpretation Comments LIPASE (test code = 2057) 18 U/L [id number] 00:00:00 Test Item Value Reference Range Interpretation Comments LIPASE (test code = 2057) 18 U/L [id number] 00:00:00 Test Item Value Reference Range Interpretation Comments LIPASE (test code = 2057) 18 U/L H. PYLORI (BREATH)2022-05-19 00:00:00 Test Item Value Reference Range Interpretation Comments H. PYLORI (BREATH) (test code = NEGATIVE 39077) H. PYLORI (BREATH)2022-05-19 00:00:00 Test Item Value Reference Range Interpretation Comments H. PYLORI (BREATH) (test code = NEGATIVE 27431) [id number] 00:00:00 Test Item Value Reference Range Interpretation Comments AMYLASE (test code = 5) 37 U/L [id number] 00:00:00 Test Item Value Reference Range Interpretation Comments AMYLASE (test code = 2205) 37 U/L [id number] 00:00:00 Test Item Value Reference Range Interpretation Comments LIPASE (test code = 2057) 18 U/L [id number] 00:00:00 Test Item Value Reference Range Interpretation Comments LIPASE (test code = 2057) 18 U/L [id number] 00:00:00 Test Item Value Reference Range Interpretation Comments LIPASE (test code = 2057) 18 U/L H. PYLORI (BREATH)2022-05-19 00:00:00 Test Item Value Reference Range Interpretation Comments H. PYLORI (BREATH) (test code = NEGATIVE 82732) H. PYLORI (BREATH)2022-05-19 00:00:00 Test Item Value Reference Range Interpretation Comments H. PYLORI (BREATH) (test code = NEGATIVE 61518) [id number] 00:00:00 Test Item Value Reference Range Interpretation Comments AMYLASE (test code = 2205) 37 U/L [id number] 00:00:00 Test Item Value Reference Range Interpretation Comments AMYLASE (test code = 2205) 37 U/L HEMOGLOBIN [id number] 23:37:11 Test Item Value Reference Range Interpretation Comments HEMOGLOBIN A1c (test 10.4 % 4.2-5.6 H [employer] AN DIABETES code = 81611) ASSOCIATION IDELIN[employer] FOR HGB A1C: PREDIABETES/INC REASED [...] INDICATED, ALL TESTING PER FORMED ATCLINICAL PATH [place] [place] [address] LABORATORY DIRE CTOR: Lelo SOLOMON. CLIA NUMBER [id number] CAP ACCREDITATION N O. [id number] COMPREHENSIVE METABOLIC [id number] 06:29:07 Test Item Value Reference Range Interpretation Comments GLUCOSE (test code = 264 MG/DL 70-99 H 2216) BUN (test code = 9 MG/DL 6-20 2207) CREATININE (test 0.68 MG/DL 0.80-1.40 L code = 2214) eGFR (2020 CKD-EPI) 127 >60 (test code = 58753) ML/MIN/1.73 CALC BUN/CREAT (test 13 RATIO 6-28 code = 2235) SODIUM (test code = 143 MEQ/L 118-589 9402) POTASSIUM (test code 4.6 MEQ/L 3.5-5.4 = 2227) CHLORIDE (test code 105 MEQ/L 95-107 = [...] MG/DL See_Comment [Automated message] (test code = 2207) The Pass[employer] which generated this result transmit stephen reference range : <=1.2. The refe rence range was not u sed to interpret th is result as normal/abnormal . ALKALINE PHOSPHATASE 76 U/L 40-112 (test code = 4) AST (test code = 17 U/L -50 2217) ALT (test code = 20 U/L -50 2218) LIPID [id number] 06:29:07 Test Item Value Reference Range Interpretation [...] MOREINFORMATION , SEE CLIENT ANNOUNCE MENT AT [email or web address] RISK RATIO LDL/HDL 2.95 RATIO <3.55 (test code = 8) HEMOGLOBIN [id number] 00:00:00 Test Item Value Reference Range Interpretation Comments HEMOGLOBIN A1c (test code = 03715) 10.4 % HEMOGLOBIN [id number] 00:00:00 Test Item Value Reference Range Interpretation Comments HEMOGLOBIN A1c (test code = 86905) 10.4 % COMPREHENSIVE METABOLIC [id number] 00:00:00 Test Item Value Reference Range Interpretation Comments GLUCOSE (test code = 2217) 264 MG/DL BUN (test code = 8) 9 MG/DL CREATININE (test code = 2214) 0.68 MG/DL eGFR (2020 CKD-EPI) (test 127 ML/MIN/1.73 code = 30245) CALC BUN/CREAT (test code = 13 RATIO 2234) SODIUM (test code = 2231) 143 MEQ/L [...] code = 2219) 20 U/L COMPREHENSIVE METABOLIC [id number] 00:00:00 Test Item Value Reference Range Interpretation Comments GLUCOSE (test code = 2217) 264 MG/DL BUN (test code = 2208) 9 MG/DL CREATININE (test code = 2214) 0.68 MG/DL eGFR (2020 CKD-EPI) (test 127 ML/MIN/1.73 code = 33336) CALC BUN/CREAT (test code = 13 RATIO [...] (test code = 2219) 20 U/L LIPID [id number] 00:00:00 Test Item Value Reference Range Interpretation Comments CHOLESTEROL (test code = 2210) 172 MG/DL TRIGLYCERIDES (test code = 2232) 84 MG/DL HDL CHOLESTEROL (test code = 2220) 39 MG/DL CALC LDL CHOL (test code = 2237) 115 MG/DL RISK RATIO LDL/HDL (test code = 2.95 RATIO 2238) LIPID [id number] 00:00:00 Test Item Value Reference Range Interpretation Comments CHOLESTEROL (test code = 2210) 172 MG/DL TRIGLYCERIDES (test code = 2232) 84 MG/DL HDL CHOLESTEROL (test code = 2220) 39 MG/DL CALC LDL CHOL (test code = 2237) 115 MG/DL RISK RATIO LDL/HDL (test code = 2.95 RATIO 2238) HEMOGLOBIN [id number] 00:00:00 Test Item Value Reference Range Interpretation Comments HEMOGLOBIN A1c (test code = 89221) 10.4 % HEMOGLOBIN [id number] 00:00:00 Test Item Value Reference Range Interpretation Comments HEMOGLOBIN A1c (test code = 35920) 10.4 % HEMOGLOBIN [id number] 00:00:00 Test Item Value Reference Range Interpretation Comments HEMOGLOBIN A1c (test code = 78641) 10.4 % COMPREHENSIVE METABOLIC [id number] 00:00:00 Test Item Value Reference Range Interpretation Comments GLUCOSE (test code = 2217) 264 MG/DL BUN (test code = 2208) 9 MG/DL CREATININE (test code = 2214) 0.68 MG/DL eGFR (2020 CKD-EPI) (test 127 ML/MIN/1.73 code = 23507) CALC BUN/CREAT (test code = 13 RATIO [...] code = 2219) 20 U/L COMPREHENSIVE METABOLIC [id number] 00:00:00 Test Item Value Reference Range Interpretation Comments GLUCOSE (test code = 2217) 264 MG/DL BUN (test code = 2208) 9 MG/DL CREATININE (test code = 2214) 0.68 MG/DL eGFR (2020 CKD-EPI) (test 127 ML/MIN/1.73 code = 31891) CALC BUN/CREAT (test code = 13 RATIO [...] (test code = 2219) 20 U/L LIPID [id number] 00:00:00 Test Item Value Reference Range Interpretation Comments CHOLESTEROL (test code = 2210) 172 MG/DL TRIGLYCERIDES (test code = 2232) 84 MG/DL HDL CHOLESTEROL (test code = 2220) 39 MG/DL CALC LDL CHOL (test code = 2237) 115 MG/DL RISK RATIO LDL/HDL (test code = 2.95 RATIO 2238) LIPID [id number] 00:00:00 Test Item Value Reference Range Interpretation Comments CHOLESTEROL (test code = 2210) 172 MG/DL TRIGLYCERIDES (test code = 2232) 84 MG/DL HDL CHOLESTEROL (test code = 2220) 39 MG/DL CALC LDL CHOL (test code = 2237) 115 MG/DL RISK RATIO LDL/HDL (test code = 2.95 RATIO 2238) HEMOGLOBIN [id number] 00:00:00 Test Item Value Reference Range Interpretation Comments HEMOGLOBIN A1c (test code = 49296) 10.4 % HEMOGLOBIN [id number] 00:00:00 Test Item Value Reference Range Interpretation Comments HEMOGLOBIN A1c (test code = 66247) 10.4 % HEMOGLOBIN [id number] 00:00:00 Test Item Value Reference Range Interpretation Comments HEMOGLOBIN A1c (test code = 47818) 10.4 % COMPREHENSIVE METABOLIC [id number] 00:00:00 Test Item Value Reference Range Interpretation Comments GLUCOSE (test code = 2217) 264 MG/DL BUN (test code = 2208) 9 MG/DL CREATININE (test code = 2214) 0.68 MG/DL eGFR (2020 CKD-EPI) (test 127 ML/MIN/1.73 code = 38994) CALC BUN/CREAT (test code = 13 RATIO [...] code = 2219) 20 U/L COMPREHENSIVE METABOLIC [id number] 00:00:00 Test Item Value Reference Range Interpretation Comments GLUCOSE (test code = 2217) 264 MG/DL BUN (test code = 2208) 9 MG/DL CREATININE (test code = 2214) 0.68 MG/DL eGFR (2020 CKD-EPI) (test 127 ML/MIN/1.73 code = 34738) CALC BUN/CREAT (test code = 13 RATIO 223) SODIUM (test code = 2231) 143 MEQ/L [...] (test code = 2219) 20 U/L LIPID [id number] 00:00:00 Test Item Value Reference Range Interpretation Comments CHOLESTEROL (test code = 2210) 172 MG/DL TRIGLYCERIDES (test code = 2232) 84 MG/DL HDL CHOLESTEROL (test code = 2220) 39 MG/DL CALC LDL CHOL (test code = 2237) 115 MG/DL RISK RATIO LDL/HDL (test code = 2.95 RATIO 2238) LIPID [id number] 00:00:00 Test Item Value Reference Range Interpretation Comments CHOLESTEROL (test code = 2210) 172 MG/DL TRIGLYCERIDES (test code = 2232) 84 MG/DL HDL CHOLESTEROL (test code = 2220) 39 MG/DL CALC LDL CHOL (test code = 2237) 115 MG/DL RISK RATIO LDL/HDL (test code = 2.95 RATIO 2238) HEMOGLOBIN [id number] 00:00:00 Test Item Value Reference Range Interpretation Comments HEMOGLOBIN A1c (test code = 81941) 10.4 % HEMOGLOBIN [id number] 00:00:00 Test Item Value Reference Range Interpretation Comments HEMOGLOBIN A1c (test code = 55895) 10.4 % HEMOGLOBIN [id number] 00:00:00 Test Item Value Reference Range Interpretation Comments HEMOGLOBIN A1c (test code = 06736) 10.4 % COMPREHENSIVE METABOLIC [id number] 00:00:00 Test Item Value Reference Range Interpretation Comments GLUCOSE (test code = 2217) 264 MG/DL BUN (test code = 2208) 9 MG/DL CREATININE (test code = 2214) 0.68 MG/DL eGFR (2020 CKD-EPI) (test 127 ML/MIN/1.73 code = 37289) CALC BUN/CREAT (test code = 13 RATIO [...] code = 2219) 20 U/L COMPREHENSIVE METABOLIC [id number] 00:00:00 Test Item Value Reference Range Interpretation Comments GLUCOSE (test code = 2217) 264 MG/DL BUN (test code = 2208) 9 MG/DL CREATININE (test code = 2214) 0.68 MG/DL eGFR (2020 CKD-EPI) (test 127 ML/MIN/1.73 code = 27023) CALC BUN/CREAT (test code = 13 RATIO [...] CALC GLOBULIN (test code = 2.7 G/DL 0) CALC A/G RATIO (test code = 1.5 RATIO 2234) BILIRUBIN, TOTAL (test code = 0.4 MG/DL 2206) ALKALINE PHOSPHATASE (test 76 U/L code = 2204) AST (test code = 2218) 17 U/L ALT (test code = 2219) 20 U/L LIPID [id number] 00:00:00 Test Item Value Reference Range Interpretation Comments CHOLESTEROL (test code = 2210) 172 MG/DL TRIGLYCERIDES (test code = 2232) 84 MG/DL HDL CHOLESTEROL (test code = 2220) 39 MG/DL CALC LDL CHOL (test code = 2237) 115 MG/DL RISK RATIO LDL/HDL (test code = 2.95 RATIO 2238) LIPID [id number] 00:00:00 Test Item Value Reference Range Interpretation Comments CHOLESTEROL (test code = 2210) 172 MG/DL TRIGLYCERIDES (test code = 2232) 84 MG/DL HDL CHOLESTEROL (test code = 2220) 39 MG/DL CALC LDL CHOL (test code = 2237) 115 MG/DL RISK RATIO LDL/HDL (test code = 2.95 RATIO 2238) HEMOGLOBIN [id number] 00:00:00 Test Item Value Reference Range Interpretation Comments HEMOGLOBIN A1c (test code = 43345) 10.4 % HEMOGLOBIN [id number] 00:00:00 Test Item Value Reference Range Interpretation Comments HEMOGLOBIN A1c (test code = 74864) 10.4 % HEMOGLOBIN [id number] 00:00:00 Test Item Value Reference Range Interpretation Comments HEMOGLOBIN A1c (test code = 61746) 10.4 % COMPREHENSIVE METABOLIC [id number] 00:00:00 Test Item Value Reference Range Interpretation Comments GLUCOSE (test code = 2217) 264 MG/DL BUN (test code = 2208) 9 MG/DL CREATININE (test code = 2214) 0.68 MG/DL eGFR (2020 CKD-EPI) (test 127 ML/MIN/1.73 code = 90101) CALC BUN/CREAT (test code = 13 RATIO [...] code = 2219) 20 U/L COMPREHENSIVE METABOLIC [id number] 00:00:00 Test Item Value Reference Range Interpretation Comments GLUCOSE (test code = 2217) 264 MG/DL BUN (test code = 2208) 9 MG/DL CREATININE (test code = 2214) 0.68 MG/DL eGFR (2020 CKD-EPI) (test 127 ML/MIN/1.73 code = 91210) CALC BUN/CREAT (test code = 13 RATIO [...] (test code = 2219) 20 U/L LIPID [id number] 00:00:00 Test Item Value Reference Range Interpretation Comments CHOLESTEROL (test code = 2210) 172 MG/DL TRIGLYCERIDES (test code = 2232) 84 MG/DL HDL CHOLESTEROL (test code = 2220) 39 MG/DL CALC LDL CHOL (test code = 2237) 115 MG/DL RISK RATIO LDL/HDL (test code = 2.95 RATIO 2238) LIPID [id number] 00:00:00 Test Item Value Reference Range Interpretation Comments CHOLESTEROL (test code = 2210) 172 MG/DL TRIGLYCERIDES (test code = 2232) 84 MG/DL HDL CHOLESTEROL (test code = 2220) 39 MG/DL CALC LDL CHOL (test code = 2237) 115 MG/DL RISK RATIO LDL/HDL (test code = 2.95 RATIO 2238) HEMOGLOBIN [id number] 00:00:00 Test Item Value Reference Range Interpretation Comments HEMOGLOBIN A1c (test code = 43174) 10.4 %
[2022-08-09] MEDS ORDERED: KETOROLAC 30 MG/ML INJ ONE (06:19)
[2022-08-09] MEDS ORDERED: ONDANSETRON 4 MG (ODT) TAB ONE (06:20)
[2022-08-09 08:40] LABS: SARS-COV-2 RT PCR POSITIVE (NEGATIVE)
--- NOTE | 2022-08-09 08:40 | EDPHYS ---
Physician Documentation [facility] Name: Altaf Perez Age: 32 yrs Sex: Male : 1990 Arrival Date: 08/09/2022 Time: 06:01 Bed 7 Private MD: ED Physician Robbin Li HPI: 08/09 06:18 This 32 yrs old Male presents to ER via Ambulatory with complaints of Fever, Headache, sd2 Nausea, Congestion. 06:18 32 yo M presents with CC of fever (Tmax 100F), headache, nausea and congestion that sd2 started around 3 am this morning. Took Tylenol prior to arrival but complains of continued body aches. States his kids at home have been sick with URI symptoms. He states he cannot take Ibuprofen due to gastritis. Denies vomiting or diarrhea.. Historical: - Allergies: 06:11 No Known Allergies; kl - PMHx: 06:11 Hypercholesterolemia; IDDM; kl - Immunization history:: Adult Immunizations up to date. - Social history:: Smoking status: Reported history of juuling and/or vaping. ROS: 06:18 Eyes: Negative for injury, pain, redness, and discharge, ENT: Negative for injury, sd2 pain, and discharge, Positive for nasal congestion Cardiovascular: Negative for chest pain, palpitations, and edema, Respiratory: Negative for shortness of breath, cough, wheezing. Abdomen/GI: Negative for abdominal pain, vomiting, diarrhea. Positive for nausea MS/Extremity: Negative for injury and deformity, Skin: Negative for injury, rash, and discoloration, Neuro: Positive for headache, Negative for numbness and tingling. 06:18 Constitutional: Positive for body aches, chills, fever, Negative for weight loss. Exam: 06:18 Constitutional: This is a well developed, well nourished patient who is awake, alert, sd2 and in no acute distress. Head/Face: Normocephalic, atraumatic. Eyes: EOMI, normal conjunctiva bilaterally ENT: nasal congestion present. Moist mucous membranes. Chest/axilla: Normal chest wall appearance and motion. Nontender with no deformity. Cardiovascular: Regular rate and rhythm with a normal S1 and S2. No gallops, murmurs, or rubs. 2+ distal pulses. Respiratory: Lungs have equal breath sounds bilaterally, clear to auscultation and percussion. No rales, rhonchi or wheezes noted. No increased work of breathing, no retractions or nasal flaring. Abdomen/GI: Soft, non-tender, with normal bowel sounds. No guarding or rebound. No evidence of tenderness throughout. Skin: Warm, dry with normal turgor. Normal color with no rashes, no lesions, and no evidence of cellulitis. MS/ Extremity: Pulses equal, no cyanosis. Neurovascular intact. Full, normal range of motion. Ambulatory without difficulty. Psych: Awake, alert, with orientation to person, place and time. Behavior, mood, and affect are within normal limits. Vital Signs: 06:09 BP 117 / 63; Pulse 89; Resp 18; Temp 99.5(O); Pulse Ox 100% on R/A; Weight 90.72 kg kl (R); Height 5 ft. 11 in. (180.34 cm); Pain 6/10; 07:00 BP 112 / 69; Pulse 82; Resp 17; Pulse Ox 99% on R/A; kd3 07:31 BP 110 / 71; Pulse 78; Resp 18 S; Pulse Ox 98% on R/A; aa5 06:09 Body Mass Index 27.89 (90.72 kg, 180.34 cm) MDM: 06:03 Patient medically screened. sd2 06:18 Differential diagnosis: Differential diagnosis includes but is not limited to: Viral sd2 URI, acute otitis media, acute otitis externa, pneumonia, UTI, COVID, flu, herpangina among others. Data reviewed: vital signs, nurses notes. 08:40 ED course: Assumed care at shift change. Patient presents to the ED with cough, rt congestion, viral symptoms. He is found to be COVID-positive. Was informed of these findings. Appears to be well-hydrated with no increased work of breathing. Do not suspect pulmonary embolism. Is stable for outpatient care, return precautions discussed. 08/09 06:04 Order name: COVID-19/FLU A+B; Complete Time: 08:41 sd2 Administered Medications: 06:25 Drug: Ketorolac 60 mg Route: IM; Site: right gluteus; kd3 06:57 Follow up: Response: No adverse reaction; Marked relief of symptoms; Pain is decreased jb4 06:25 Drug: Ondansetron 4 mg Route: PO; kd3 06:57 Follow up: Response: No adverse reaction; Marked relief of symptoms; Nausea is decreasedjb4 Disposition Summary: 08/09/22 08:39 Discharge Ordered Location: Home rt Problem: new rt Symptoms: have improved rt Condition: Stable rt Diagnosis - Covid rt Followup: sd2 - With: Private Physician - When: 2 - 3 days - Reason: Recheck today's complaints, Continuance of care, Re-evaluation by your physician Discharge Instructions: - Discharge Summary Sheet sd2 - Upper Respiratory Infection, Adult sd2 - Viral Respiratory Infection sd2 Forms: - Medication Reconciliation Form rt - Work release form rt - Thank You Letter rt - Antibiotic Education rt - Prescription Opioid Use rt Prescriptions: - Zofran 4 mg Oral Tablet - take 1 tablet by ORAL route every 6 hours As needed; 20 tablet; Refills: 0, sd2 Product Selection Permitted Signatures: Dispatcher [employer] Laura Barber RN RN kl Soo Hurd RN RN kd3 Bernadette Mittal MD MD sd2 Robbin Li MD MD rt Yosvany Torres RN jb4
--- NOTE | 2022-08-09 08:40 | ER ---
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 Coronavirus screen: Vaccine status: Patient reports receiving the 2nd dose of the covid vaccine. Ebola Screen: Patient negative for fever greater than or equal to 101.5 degrees Fahrenheit, and additional compatible Ebola Virus Disease symptoms. Initial Sepsis Screen: Does the patient meet any 2 criteria? No. Patient's initial sepsis screen is negative. Does the patient have a suspected source of infection? No. Patient's initial sepsis screen is negative. Risk Assessment: Do you want to hurt yourself or someone else? Patient reports no desire to harm self or others. Onset of symptoms was August 09, 2022 at 05:00. 06:09 Method Of Arrival: Ambulatory 06:09 Acuity: CHRISTIANA 4 kl Triage Assessment: 06:12 Headache History: The patient has had previous headaches and this one is similar to previous episodes. General: Appears uncomfortable, Behavior is calm, cooperative. Pain: Complains of pain in generalized body aches Pain currently is 5 out of 10 on a pain scale. Pain: Pain began 1 hour ago. Also complains of inability to work. Neuro: No deficits noted. Historical: - Allergies: 06:11 No Known Allergies; kl - PMHx: 06:11 Hypercholesterolemia; IDDM; kl - Immunization history:: Adult Immunizations up to date. - Social history:: Smoking status: Reported history of juuling and/or vaping. Screenin:58 [facility] ED Fall Risk Assessment (Adult) History of falling in the last 3 months, kd3 including since admission No falls in past 3 months (0 pts) Confusion or Disorientation No (0 pts) Intoxicated or Sedated No (0 pts) Impaired Gait No (0 pts) Mobility Assist Device Used No (0 pt) Altered Elimination No (0 pt) Score/Fall Risk Level 0 - 2 = Low Risk. Humpty Dumpty Scale Fall Assessment Tool (age< 18yrs) Age 13 years and above (1 pt) Gender Male (2 pts) Diagnosis Other diagnosis (1 pt) Cognitive Impairments Oriented to own ability (1 pt) Environmental Factors Patient placed in bed (2 pts) Response to Surgery/Sedation/Anesthesia More than 48 hours/ None (1 pt) Medication Usage Other medications/ None (1 pt) Fall Risk Score/ Level Low Fall Risk: </= 11 points Oriented to surroundings. Abuse screen: Denies threats or abuse. Denies injuries from another. Nutritional screening: No deficits noted. Tuberculosis screening: No symptoms or risk factors identified. Fall Risk No fall in past 12 months (0 pts). No secondary diagnosis (0 pts). No IV (0 pts). Ambulatory Aid- None/Bed Rest/Nurse Assist (0 pts). Gait- Normal/Bed Rest/Wheelchair (0 pts) Mental Status- Oriented to own ability (0 pts). Total Pacheco Fall Scale indicates No Risk (0-24 pts). Assessment: 06:58 Reassessment: Patient appears in no apparent distress at this time. Patient and/or jb4 family updated on plan of care and expected duration. Pain level reassessed. Patient is alert, oriented x 3, equal unlabored respirations, skin warm/dry/pink. Patient states feeling better. Patient states symptoms have improved. Pain: Pain currently is 3 out of 10 on a pain scale. 07:31 Reassessment: Patient is alert, oriented x 3, equal unlabored respirations, skin aa5 warm/dry/pink. Patient states feeling better. Patient states symptoms have improved. Pain has improved. Awaiting lab results for disposition. . 08:40 Reassessment: Patient is alert, oriented x 3, equal unlabored respirations, skin aa5 warm/dry/pink. Vital Signs: 06:09 BP 117 / 63; Pulse 89; Resp 18; Temp 99.5(O); Pulse Ox 100% on R/A; Weight 90.72 kg kl (R); Height 5 ft. 11 in. (180.34 cm); Pain 6/10; 07:00 BP 112 / 69; Pulse 82; Resp 17; Pulse Ox 99% on R/A; kd3 07:31 BP 110 / 71; Pulse 78; Resp 18 S; Pulse Ox 98% on R/A; aa5 06:09 Body Mass Index 27.89 (90.72 kg, 180.34 cm) ED Course: 06:01 Patient arrived in ED. ja2 06:03 Bernadette Mittal MD is Attending Physician. sd2 06:11 Triage completed. 06:16 Soo Hurd RN is Primary Nurse. kd3 06:25 COVID-19/FLU A+B Sent. kd3 06:58 Patient has correct armband on for positive identification. Client placed on continuous kd3 cardiac and pulse oximetry monitoring. NIBP monitoring applied. 06:59 Arm band placed on right wrist. kd3 07:14 Attending Physician role handed off by Bernadette Mittal MD rt 07:14 Robbin Li MD is Attending Physician. rt 08:46 No provider procedures requiring assistance completed. Patient did not have IV access aa5 during this emergency room visit. Administered Medications: 06:25 Drug: Ketorolac 60 mg Route: IM; Site: right gluteus; kd3 06:57 Follow up: Response: No adverse reaction; Marked relief of symptoms; Pain is decreased jb4 06:25 Drug: Ondansetron 4 mg Route: PO; kd3 06:57 Follow up: Response: No adverse reaction; Marked relief of symptoms; Nausea is decreasedjb4 Medication: 06:59 VIS not applicable for this client. kd3 Outcome: 08:39 Discharge ordered by . rt 08:43 Discharged to home ambulatory. aa5 08:43 Condition: stable 08:43 Discharge instructions given to patient, Instructed on discharge instructions, follow up and referral plans. medication usage, Demonstrated understanding of instructions, follow-up care, medications, Prescriptions given X 1. 08:46 Patient left the ED. aa5 Signatures: Luara Meneses RN Jud Gibbons RN RN aa5 Yosvany Torres RN RN jb4 Regine Jean 2 Soo Hurd RN RN kd3 Bernadette Mittal MD MD ms2 Robbin Li MD MD rt
[2022-08-09 08:56] VITALS: TEMP 99.5
[2022-08-09 08:58] VITALS: BP 110/71; O2SAT 98
== END 2022-08-09 08:46 | disposition home or self-care (01) ==
LOC: ER 05:55
DX: U07.1 COVID-19 (principal)
CPT/HCPCS: 0240U; Q0162

== ENCOUNTER 2022-08-23 00:21 | Emergency (ER) | payer BC, SELFPAY ==
--- OUTSIDE RECORDS SUMMARY | 2022-08-23 00:25 | XMS REPORT | Continuity of Care Document ---
:1990 Author Organization [facility] t Address [address] [place] [address] Care Team Providers Name Role Phone Bina Ochoa Primary Care Physician [phone] Problems This patient has no known problems. [...] 2021-08 No Unknown 2-13 00:00: 00 Dose 2021- No Unknown 2-13 00:00: 00 Dose 2021-08 No Unknown 2-13 00:00: 00 TAKE 1 2021-08 No TABLET BY 2-13 MOUTH EVERY 00:00: 4-6 HOURS 00 NEEDED TAKE 1 No TABLET 9-28 TWICE 00:00: DAILY. 00 [...] Goal Plan of Care Note [code = 30884-7] Goal Plan of Care Note [code = 53028-5] Goal Plan of Care Note [code = 02623-6] Goal Plan of Care Note [code = 41023-8] Goal Plan of Care Note [code = 04219-9] Goal Plan of Care Note [code = 79781-6] Goal Plan of Care Note [code = 28011-8] Goal Plan of Care Note [code = 82644-7] Goal Plan of Care Note [code = 44084-3] Goal Plan of Care Note [code = 74993-1] Goal Plan of Care Note [code = 30268-0] Goal Plan of Care Note [code = 54119-8] Goal Plan of Care Note [code = 11958-9] Goal Plan of Care Note [code = 45924-0] Goal Plan of Care Note [code = 24195-7] Goal Plan of Care Note [code = 83687-1] Goal Plan of Care Note [code = 43431-1] Goal Plan of Care Note [code = 87427-5] Goal Plan of Care Note [code = 84010-3] Goal Plan of Care Note [code = 62919-2] Goal Plan of Care Note [code = 56247-0] Goal Plan of Care Note [code = 44940-0] Goal Plan of Care Note [code = 00669-6] Goal Plan of Care Note [code = 45455-1] Goal Plan of Care Note [code = 23861-3] Goal Plan of Care Note [code = 24316-7] Goal Plan of Care Note [code = 04098-8] Goal Plan of Care Note [code = 42386-1] Goal Plan of Care Note [code = 39685-2] Goal Plan of Care Note [code = 90815-3] Goal Plan of Care Note [code = 60208-3] Goal Plan of Care Note [code = 45810-1] Goal Plan of Care Note [code = 89736-2] Goal Plan of Care Note [code = 45038-5] Goal Plan of Care Note [code = 73264-8] Goal Plan of Care Note [code = 75492-5] Goal Plan of Care Note [code = 22236-9] Goal Plan of Care Note [code = 79397-2] Goal Plan of Care Note [code = 91516-8] Goal Plan of Care Note [code = 43323-8] Goal Plan of Care Note [code = 94637-3] Goal Plan of Care Note [code = 86816-3] Goal Plan of Care Note [code = 08367-9] Goal Plan of Care Note [code = 05318-6] Goal Plan of Care Note [code = 38838-6] Goal Plan of Care Note [code = 38896-9] Goal Plan of Care Note [code = 64114-1] Goal Plan of Care Note [code = 86207-6] Goal Plan of Care Note [code = 79852-7] Goal Plan of Care Note [code = 97496-9] Goal Plan of Care Note [code = 12061-9] Goal Plan of Care Note [code = 20068-9] Goal Plan of Care Note [code = 05426-8] Encounters Start End Encounter Admission Attending Care Care Encounter Source Date/Time Date/Time Type Type Clinicians Facility Department ID 2022-08-02 2022-08-02 Outpatient [facility] Johann 13:36:36 13:36:36 [id number] F Dylon 2022-08-02 2022-08-02 Outpatient [id number] 00:00:00 00:00:00 Visit p1st-70pa 3eb-45ef-a -g4sz-3w9 6bc-1k242o 79qri4416 um2062 2022-06-27 2022-06-27 Outpatient [facility] Johann 14:28:49 14:28:49 [id number] F Dylon 2022-06-27 2022-06-27 Outpatient [id number]- [id number] w46c7n-f 00:00:00 00:00:00 Visit uu46-82nz f38-55nm-k -mk09-zr8 a06-wj108q 60dk60kyx d31cbc 2022-05-30 2022-05-30 Outpatient [id number] [id number]-o 00:00:00 00:00:00 Visit z938-9891 467-4492-8 -00u2-1pd 5o6-9qvhe7 hr93m1bg1 6f0de3 2022-05-24 2022-05-24 Outpatient [facility] [id number] Johann 13:25:23 13:25:23 [id number] F Dylon 2022-05-24 2022-05-24 Outpatient [id number] 00:00:00 00:00:00 Visit 2t57-3a85 b72-3u10-5 -8616-bb7 616-bb7bb5 ns04pv035 6rz236 2022-05-17 2022-05-17 Outpatient o0i9jx00- [id number] r4le84-7 00:00:00 00:00:00 Visit 77l5-8rl7 4c3-1xr5-1 -5l1s-zzf x8q-ruyv13 z61kuaxnk ecbfaa 2022-04-26 2022-04-26 Outpatient 2s529c2u- [id number] 0c 064d8m-x 00:00:00 00:00:00 Visit p37k-31aa 91d-41dc-9 -9142-545 142-545c34 z62va0830 dd7202 Results Test Description Test Time Test Comments Results Result Comments Source CULTURE, URINE 2022-05-27 SPECIMEN NUMBER: 16:24:13 [id number] CULTURE, URINE SPECIMEN NUMBER: [id number] SPECIMEN COMMENT: URINE SOURCE: URINE REPORT STATUS: [...] Comme nts CULTURE, URINE (test code = 26619) SPECIMEN NUMBER: [id number] CULTURE, [id number] 00:00:00 Test Item Value Reference Range Interpretation Comments CULTURE, URINE (test SPECIMEN NUMBER: code = 10958) [id number] CULTURE, [id number] 00:00:00 Test Item Value Reference Range Interpretation Comments CULTURE, URINE (test SPECIMEN NUMBER: code = 33169) [id number] CULTURE, [id number] 00:00:00 Test Item Value Reference Range Interpretation Comments CULTURE, URINE (test SPECIMEN NUMBER: code = 21939) [id number] CULTURE, [id number] 00:00:00 Test Item Value Reference Range Interpretation Comments CULTURE, URINE (test SPECIMEN NUMBER: code = 83324) [id number] CULTURE, [id number] 00:00:00 Test Item Value Reference Range Interpretation Comments CULTURE, URINE (test SPECIMEN NUMBER: code = 40082) [id number] CULTURE, [id number] 00:00:00 Test Item Value Reference Range Interpretation Comments CULTURE, URINE (test SPECIMEN NUMBER: code = 54280) [id number] CULTURE, [id number] 00:00:00 Test Item Value Reference Range Interpretation Comments CULTURE, URINE (test SPECIMEN NUMBER: code = 93471) [id number] CT/NG, NAAT, [id number] 19:07:28 Test Item Value Reference Range Interpretation Comments GONORRHEA, NAAT NEGATIVE NEGATIVE IMPORTA NT NOTICE: SEE (test code = [place] [address]) [email or web address] Note: Assay methodology is nucleic acid amplification b y boiler control room operator m ediated amplification ( TMA) utilizing the A ptima Combo 2 Assay. CHLAMYDIA, NAAT NEGATIVE NEGATIVE IMPORTA NT NOTICE: SEE (test code = [place] [address]) [email or web address] Note: Assay methodology is nucleic acid amplification b y boiler control room operator m ediated amplification ( TMA) utilizing the A ptima Combo 2 Assay. UNLESS OTHERWISE INDICATED, ALL TESTING PERFORMED [facility] [address] [place] [id number] [place] [address] DIRECTOR: KUSHAL AGUSTIN M.D. CLIA NUMBER [id number] CAP ACCREDITATION N O. [id number] CT/NG, TMA, [id number] 00:00:00 Test Item Value Reference Range Interpretation Comments GONORRHEA, NAAT (test code = 36513) NEGATIVE CHLAMYDIA, NAAT (test code = 67483) NEGATIVE CT/NG, TMA, [id number] 00:00:00 Test Item Value Reference Range Interpretation Comments GONORRHEA, NAAT (test code = 27314) NEGATIVE CHLAMYDIA, NAAT (test code = 52136) NEGATIVE CT/NG, TMA, [id number] 00:00:00 Test Item Value Reference Range Interpretation Comments GONORRHEA, NAAT (test code = 26816) NEGATIVE CHLAMYDIA, NAAT (test code = 19878) NEGATIVE CT/NG, TMA, [id number] 00:00:00 Test Item Value Reference Range Interpretation Comments GONORRHEA, NAAT (test code = 13986) NEGATIVE CHLAMYDIA, NAAT (test code = 60067) NEGATIVE CT/NG, TMA, [id number] 00:00:00 Test Item Value Reference Range Interpretation Comments GONORRHEA, NAAT (test code = 49363) NEGATIVE CHLAMYDIA, NAAT (test code = 20453) NEGATIVE CT/NG, TMA, [id number] 00:00:00 Test Item Value Reference Range Interpretation Comments GONORRHEA, NAAT (test code = 82926) NEGATIVE CHLAMYDIA, NAAT (test code = 32694) NEGATIVE CT/NG, TMA, [id number] 00:00:00 Test Item Value Reference Range Interpretation Comments GONORRHEA, NAAT (test code = 19253) NEGATIVE CHLAMYDIA, NAAT (test code = 31125) NEGATIVE CT/NG, TMA, [id number] 00:00:00 Test Item Value Reference Range Interpretation Comments GONORRHEA, NAAT (test code = 79353) NEGATIVE CHLAMYDIA, NAAT (test code = 78405) NEGATIVE H. PYLORI (BREATH)2022-05-19 15:05:57 Test Item Value Reference Range Interpretation Comments H. PYLORI (BREATH) (test code = NEGATIVE NEGATIVE 91895) [id number] 04:16:31 Test Item Value Reference Range Interpretation Comments AMYLASE (test code = 2205) 37 U/L 28-100 [id number] 04:16:31 Test Item Value Reference Range Interpretation Comments LIPASE (test code = 18 U/L 13-60 UNLESS OTHERWISE 2058) INDICATED, ALL TESTING PERFORMED [facility] [address] [place] [address] [facility] DIRECTOR: KUSHAL AGUSTIN M.D. CLIA NUMBER [id number] CAP ACCREDITATION N O. [id number] 00:00:00 Test Item Value Reference Range Interpretation Comments LIPASE (test code = 2057) 18 U/L [id number] 00:00:00 Test Item Value Reference Range Interpretation Comments LIPASE (test code = 2057) 18 U/L [id number] 00:00:00 Test Item Value Reference Range Interpretation Comments LIPASE (test code = 2057) 18 U/L H. PYLORI (BREATH)2022-05-19 00:00:00 Test Item Value Reference Range Interpretation Comments H. PYLORI (BREATH) (test code = NEGATIVE 86628) H. PYLORI (BREATH)2022-05-19 00:00:00 Test Item Value Reference Range Interpretation Comments H. PYLORI (BREATH) (test code = NEGATIVE 30115) [id number] 00:00:00 Test Item Value Reference Range Interpretation Comments AMYLASE (test code = 2205) 37 U/L [id number] 00:00:00 Test Item Value Reference Range Interpretation Comments AMYLASE (test code = 5) 37 U/L [id number] 00:00:00 Test Item Value Reference Range Interpretation Comments LIPASE (test code = 2057) 18 U/L [id number] 00:00:00 Test Item Value Reference Range Interpretation Comments LIPASE (test code = 2057) 18 U/L [id number] 00:00:00 Test Item Value Reference Range Interpretation Comments LIPASE (test code = 2057) 18 U/L H. PYLORI (BREATH)2022-05-19 00:00:00 Test Item Value Reference Range Interpretation Comments H. PYLORI (BREATH) (test code = NEGATIVE 85429) H. PYLORI (BREATH)2022-05-19 00:00:00 Test Item Value Reference Range Interpretation Comments H. PYLORI (BREATH) (test code = NEGATIVE 53104) [id number] 00:00:00 Test Item Value Reference Range Interpretation Comments AMYLASE (test code = 2205) 37 U/L [id number] 00:00:00 Test Item Value Reference Range Interpretation Comments AMYLASE (test code = 2205) 37 U/L [id number] 00:00:00 Test Item Value Reference Range Interpretation Comments LIPASE (test code = 2057) 18 U/L [id number] 00:00:00 Test Item Value Reference Range Interpretation Comments LIPASE (test code = 2057) 18 U/L [id number] 00:00:00 Test Item Value Reference Range Interpretation Comments LIPASE (test code = 2057) 18 U/L H. PYLORI (BREATH)2022-05-19 00:00:00 Test Item Value Reference Range Interpretation Comments H. PYLORI (BREATH) (test code = NEGATIVE 09212) H. PYLORI (BREATH)2022-05-19 00:00:00 Test Item Value Reference Range Interpretation Comments H. PYLORI (BREATH) (test code = NEGATIVE 14931) [id number] 00:00:00 Test Item Value Reference Range Interpretation Comments AMYLASE (test code = 5) 37 U/L [id number] 00:00:00 Test Item Value Reference Range Interpretation Comments AMYLASE (test code = 2205) 37 U/L [id number] 00:00:00 Test Item Value Reference Range Interpretation Comments LIPASE (test code = 2057) 18 U/L [id number] 00:00:00 Test Item Value Reference Range Interpretation Comments LIPASE (test code = 2057) 18 U/L [id number] 00:00:00 Test Item Value Reference Range Interpretation Comments LIPASE (test code = 2057) 18 U/L H. PYLORI (BREATH)2022-05-19 00:00:00 Test Item Value Reference Range Interpretation Comments H. PYLORI (BREATH) (test code = NEGATIVE 44063) H. PYLORI (BREATH)2022-05-19 00:00:00 Test Item Value Reference Range Interpretation Comments H. PYLORI (BREATH) (test code = NEGATIVE 82380) [id number] 00:00:00 Test Item Value Reference Range Interpretation Comments AMYLASE (test code = 2205) 37 U/L [id number] 00:00:00 Test Item Value Reference Range Interpretation Comments AMYLASE (test code = 2205) 37 U/L HEMOGLOBIN [id number] 23:37:11 Test Item Value Reference Range Interpretation Comments HEMOGLOBIN A1c (test 10.4 % 4.2-5.6 H [employer]IC AN DIABETES code = 15250) ASSOCIATION IDELIN[employer] FOR HGB A1C: PREDIABETES/INC REASED [...] INDICATED, ALL TESTING PER FORMED ATCLINICAL PATH [facility] [place] [address] [place] [address] LABORATORY DIRE CTOR: Lelo SOLOMON. CLIA NUMBER [id number] CAP ACCREDITATION N O. [id number] COMPREHENSIVE METABOLIC [id number] 06:29:07 Test Item Value Reference Range Interpretation Comments GLUCOSE (test code = 264 MG/DL 70-99 H 2216) BUN (test code = 9 MG/DL 6-20 2207) CREATININE (test 0.68 MG/DL 0.80-1.40 L code = 2214) eGFR (2020 CKD-EPI) 127 >60 (test code = 52404) ML/MIN/1.73 CALC BUN/CREAT (test 13 RATIO 6-28 code = 2235) SODIUM (test code = 143 MEQ/L 266-475 9942) POTASSIUM (test code 4.6 MEQ/L 3.5-5.4 = [...] [Automated message] (test code = 2207) The [employer] which generated this result transmit stephen reference range : <=1.2. The refe rence range was not u sed to interpret th is result as normal/abnormal . ALKALINE PHOSPHATASE 76 U/L 40-112 (test code = 4) AST (test code = 17 U/L -50 2217) ALT (test code = 20 U/L -50 2218) LIPID [id number] 06:29:07 Test Item Value Reference Range Interpretation [...] MOREINFORMATION , SEE CLIENT ANNOUNCE MENT AT [email or web address] RISK RATIO LDL/HDL 2.95 RATIO <3.55 (test code = 8) HEMOGLOBIN [id number] 00:00:00 Test Item Value Reference Range Interpretation Comments HEMOGLOBIN A1c (test code = 37859) 10.4 % HEMOGLOBIN [id number] 00:00:00 Test Item Value Reference Range Interpretation Comments HEMOGLOBIN A1c (test code = 02071) 10.4 % COMPREHENSIVE METABOLIC [id number] 00:00:00 Test Item Value Reference Range Interpretation Comments GLUCOSE (test code = 2217) 264 MG/DL BUN (test code = 8) 9 MG/DL CREATININE (test code = 2214) 0.68 MG/DL eGFR (2020 CKD-EPI) (test 127 ML/MIN/1.73 code = 16882) CALC BUN/CREAT (test code = 13 RATIO 2234) SODIUM (test code = 2231) 143 MEQ/L POTASSIUM (test code = 2228) 4.6 MEQ/L CHLORIDE (test code = 2215) 105 MEQ/L CARBON DIOXIDE (test code = 24 MEQ/L 2205) CALCIUM (test code = 2209) 9.3 MG/DL PROTEIN, TOTAL (test code = 6.8 G/DL 222) ALBUMIN (test code = 2201) 4.1 G/DL CALC GLOBULIN (test code = 2.7 G/DL 2240) CALC A/G RATIO (test code = 1.5 RATIO 2234) BILIRUBIN, TOTAL (test code = 0.4 MG/DL 2206) ALKALINE PHOSPHATASE (test 76 U/L code = 2204) AST (test code = 2218) 17 U/L ALT (test code = 2219) 20 U/L COMPREHENSIVE METABOLIC [id number] 00:00:00 Test Item Value Reference Range Interpretation Comments GLUCOSE (test code = 2217) 264 MG/DL BUN (test code = 2208) 9 MG/DL CREATININE (test code = 2214) 0.68 MG/DL eGFR (2020 CKD-EPI) (test 127 ML/MIN/1.73 code = 88868) CALC BUN/CREAT (test code = 13 RATIO [...] (test code = 2219) 20 U/L LIPID [id number] 00:00:00 Test Item Value Reference Range Interpretation Comments CHOLESTEROL (test code = 2210) 172 MG/DL TRIGLYCERIDES (test code = 2232) 84 MG/DL HDL CHOLESTEROL (test code = 2220) 39 MG/DL CALC LDL CHOL (test code = 2237) 115 MG/DL RISK RATIO LDL/HDL (test code = 2.95 RATIO 2238) LIPID [id number] 00:00:00 Test Item Value Reference Range Interpretation Comments CHOLESTEROL (test code = 2210) 172 MG/DL TRIGLYCERIDES (test code = 2232) 84 MG/DL HDL CHOLESTEROL (test code = 2220) 39 MG/DL CALC LDL CHOL (test code = 2237) 115 MG/DL RISK RATIO LDL/HDL (test code = 2.95 RATIO 2238) HEMOGLOBIN [id number] 00:00:00 Test Item Value Reference Range Interpretation Comments HEMOGLOBIN A1c (test code = 24277) 10.4 % HEMOGLOBIN [id number] 00:00:00 Test Item Value Reference Range Interpretation Comments HEMOGLOBIN A1c (test code = 79741) 10.4 % HEMOGLOBIN [id number] 00:00:00 Test Item Value Reference Range Interpretation Comments HEMOGLOBIN A1c (test code = 42874) 10.4 % COMPREHENSIVE METABOLIC [id number] 00:00:00 Test Item Value Reference Range Interpretation Comments GLUCOSE (test code = 2217) 264 MG/DL BUN (test code = 2208) 9 MG/DL CREATININE (test code = 2214) 0.68 MG/DL eGFR (2020 CKD-EPI) (test 127 ML/MIN/1.73 code = 04974) CALC BUN/CREAT (test code = 13 RATIO [...] code = 2219) 20 U/L COMPREHENSIVE METABOLIC [id number] 00:00:00 Test Item Value Reference Range Interpretation Comments GLUCOSE (test code = 2217) 264 MG/DL BUN (test code = 2208) 9 MG/DL CREATININE (test code = 2214) 0.68 MG/DL eGFR (2020 CKD-EPI) (test 127 ML/MIN/1.73 code = 22695) CALC BUN/CREAT (test code = 13 RATIO [...] (test code = 2219) 20 U/L LIPID [id number] 00:00:00 Test Item Value Reference Range Interpretation Comments CHOLESTEROL (test code = 2210) 172 MG/DL TRIGLYCERIDES (test code = 2232) 84 MG/DL HDL CHOLESTEROL (test code = 2220) 39 MG/DL CALC LDL CHOL (test code = 2237) 115 MG/DL RISK RATIO LDL/HDL (test code = 2.95 RATIO 2238) LIPID [id number] 00:00:00 Test Item Value Reference Range Interpretation Comments CHOLESTEROL (test code = 2210) 172 MG/DL TRIGLYCERIDES (test code = 2232) 84 MG/DL HDL CHOLESTEROL (test code = 2220) 39 MG/DL CALC LDL CHOL (test code = 2237) 115 MG/DL RISK RATIO LDL/HDL (test code = 2.95 RATIO 2238) HEMOGLOBIN [id number] 00:00:00 Test Item Value Reference Range Interpretation Comments HEMOGLOBIN A1c (test code = 45198) 10.4 % HEMOGLOBIN [id number] 00:00:00 Test Item Value Reference Range Interpretation Comments HEMOGLOBIN A1c (test code = 40536) 10.4 % HEMOGLOBIN [id number] 00:00:00 Test Item Value Reference Range Interpretation Comments HEMOGLOBIN A1c (test code = 52900) 10.4 % COMPREHENSIVE METABOLIC [id number] 00:00:00 Test Item Value Reference Range Interpretation Comments GLUCOSE (test code = 2217) 264 MG/DL BUN (test code = 2208) 9 MG/DL CREATININE (test code = 2214) 0.68 MG/DL eGFR (2020 CKD-EPI) (test 127 ML/MIN/1.73 code = 09390) CALC BUN/CREAT (test code = 13 RATIO [...] code = 2219) 20 U/L COMPREHENSIVE METABOLIC [id number] 00:00:00 Test Item Value Reference Range Interpretation Comments GLUCOSE (test code = 2217) 264 MG/DL BUN (test code = 2208) 9 MG/DL CREATININE (test code = 2214) 0.68 MG/DL eGFR (2020 CKD-EPI) (test 127 ML/MIN/1.73 code = 01500) CALC BUN/CREAT (test code = 13 RATIO [...] (test code = 2219) 20 U/L LIPID [id number] 00:00:00 Test Item Value Reference Range Interpretation Comments CHOLESTEROL (test code = 2210) 172 MG/DL TRIGLYCERIDES (test code = 2232) 84 MG/DL HDL CHOLESTEROL (test code = 2220) 39 MG/DL CALC LDL CHOL (test code = 2237) 115 MG/DL RISK RATIO LDL/HDL (test code = 2.95 RATIO 2238) LIPID [id number] 00:00:00 Test Item Value Reference Range Interpretation Comments CHOLESTEROL (test code = 2210) 172 MG/DL TRIGLYCERIDES (test code = 2232) 84 MG/DL HDL CHOLESTEROL (test code = 2220) 39 MG/DL CALC LDL CHOL (test code = 2237) 115 MG/DL RISK RATIO LDL/HDL (test code = 2.95 RATIO 2238) HEMOGLOBIN [id number] 00:00:00 Test Item Value Reference Range Interpretation Comments HEMOGLOBIN A1c (test code = 16114) 10.4 % HEMOGLOBIN [id number] 00:00:00 Test Item Value Reference Range Interpretation Comments HEMOGLOBIN A1c (test code = 97666) 10.4 % HEMOGLOBIN [id number] 00:00:00 Test Item Value Reference Range Interpretation Comments HEMOGLOBIN A1c (test code = 65297) 10.4 % COMPREHENSIVE METABOLIC [id number] 00:00:00 Test Item Value Reference Range Interpretation Comments GLUCOSE (test code = 2217) 264 MG/DL BUN (test code = 2208) 9 MG/DL CREATININE (test code = 2214) 0.68 MG/DL eGFR (2020 CKD-EPI) (test 127 ML/MIN/1.73 code = 06224) CALC BUN/CREAT (test code = 13 RATIO [...] code = 2219) 20 U/L COMPREHENSIVE METABOLIC [id number] 00:00:00 Test Item Value Reference Range Interpretation Comments GLUCOSE (test code = 2217) 264 MG/DL BUN (test code = 2208) 9 MG/DL CREATININE (test code = 2214) 0.68 MG/DL eGFR (2020 CKD-EPI) (test 127 ML/MIN/1.73 code = 35320) CALC BUN/CREAT (test code = 13 RATIO [...] (test code = 2219) 20 U/L LIPID [id number] 00:00:00 Test Item Value Reference Range Interpretation Comments CHOLESTEROL (test code = 2210) 172 MG/DL TRIGLYCERIDES (test code = 2232) 84 MG/DL HDL CHOLESTEROL (test code = 2220) 39 MG/DL CALC LDL CHOL (test code = 2237) 115 MG/DL RISK RATIO LDL/HDL (test code = 2.95 RATIO 2238) LIPID [id number] 00:00:00 Test Item Value Reference Range Interpretation Comments CHOLESTEROL (test code = 2210) 172 MG/DL TRIGLYCERIDES (test code = 2232) 84 MG/DL HDL CHOLESTEROL (test code = 2220) 39 MG/DL CALC LDL CHOL (test code = 2237) 115 MG/DL RISK RATIO LDL/HDL (test code = 2.95 RATIO 2238) HEMOGLOBIN [id number] 00:00:00 Test Item Value Reference Range Interpretation Comments HEMOGLOBIN A1c (test code = 85672) 10.4 % HEMOGLOBIN [id number] 00:00:00 Test Item Value Reference Range Interpretation Comments HEMOGLOBIN A1c (test code = 10868) 10.4 % HEMOGLOBIN [id number] 00:00:00 Test Item Value Reference Range Interpretation Comments HEMOGLOBIN A1c (test code = 95696) 10.4 % COMPREHENSIVE METABOLIC [id number] 00:00:00 Test Item Value Reference Range Interpretation Comments GLUCOSE (test code = 2217) 264 MG/DL BUN (test code = 2208) 9 MG/DL CREATININE (test code = 2214) 0.68 MG/DL eGFR (2020 CKD-EPI) (test 127 ML/MIN/1.73 code = 78397) CALC BUN/CREAT (test code = 13 RATIO [...] code = 2219) 20 U/L COMPREHENSIVE METABOLIC [id number] 00:00:00 Test Item Value Reference Range Interpretation Comments GLUCOSE (test code = 2217) 264 MG/DL BUN (test code = 2208) 9 MG/DL CREATININE (test code = 2214) 0.68 MG/DL eGFR (2020 CKD-EPI) (test 127 ML/MIN/1.73 code = 17393) CALC BUN/CREAT (test code = 13 RATIO [...] (test code = 2219) 20 U/L LIPID [id number] 00:00:00 Test Item Value Reference Range Interpretation Comments CHOLESTEROL (test code = 2210) 172 MG/DL TRIGLYCERIDES (test code = 2232) 84 MG/DL HDL CHOLESTEROL (test code = 2220) 39 MG/DL CALC LDL CHOL (test code = 2237) 115 MG/DL RISK RATIO LDL/HDL (test code = 2.95 RATIO 2238) LIPID [id number] 00:00:00 Test Item Value Reference Range Interpretation Comments CHOLESTEROL (test code = 2210) 172 MG/DL TRIGLYCERIDES (test code = 2232) 84 MG/DL HDL CHOLESTEROL (test code = 2220) 39 MG/DL CALC LDL CHOL (test code = 2237) 115 MG/DL RISK RATIO LDL/HDL (test code = 2.95 RATIO 2238) HEMOGLOBIN [id number] 00:00:00 Test Item Value Reference Range Interpretation Comments HEMOGLOBIN A1c (test code = 78187) 10.4 %
[2022-08-23] MEDS ORDERED: IBUPROFEN 400 MG TAB ONE (00:57)
[2022-08-23 02:06] LABS: SARS-COV-2 RT PCR POSITIVE (NEGATIVE)
[2022-08-23] MEDS ORDERED: ACETAMINOPHEN 500 MG TAB ONE (02:08)
--- NOTE | 2022-08-23 02:19 | ER ---
Nurse's Notes [facility] Name: Altaf Perez Age: 32 yrs Sex: Male : 1990 Arrival Date: 08/23/2022 Time: 00:27 Bed 6 Private MD: Diagnosis: Acute pharyngitis, unspecified;Otitis media, unspecified, left ear;SARS-associated coronavirus as the cause of diseases classified elsewhere Presentation: 08/23 00:37 Chief complaint: Patient states: "I think I have the flu or something. I feel like I am tw5 coming down with something again. I had covid three weeks ago.". Coronavirus screen: Vaccine status: Patient reports receiving the 2nd dose of the covid vaccine. [employer]. Ebola Screen: Patient negative for fever greater than or equal to 101.5 degrees Fahrenheit, and additional compatible Ebola Virus Disease symptoms Patient denies exposure to infectious person. Patient denies travel to an Ebola-affected area in the 21 days before illness onset. Initial Sepsis Screen: Does the patient meet any 2 criteria? Temp <36.0*C (96.8*F)) or > 38.3*C (100.9*F). HR > 90 bpm. Does the patient have a suspected source of infection? No. Patient's initial sepsis screen is negative. Risk Assessment: Do you want to hurt yourself or someone else? Patient reports no desire to harm self or others. Onset of symptoms was August 20, 2022. 00:37 Method Of Arrival: Ambulatory tw5 00:37 Acuity: CHRISTIANA 3 tw5 Triage Assessment: 00:40 Headache History:. General: Appears uncomfortable, Behavior is calm, cooperative, tw5 appropriate for age. Pain: Pain currently is 5 out of 10 on a pain scale. Pain began 1 hour ago. Also complains of. Neuro: Level of Consciousness is awake, alert, obeys commands, Oriented to person, place, time, situation. Historical: - Allergies: 00:40 No Known Allergies; tw5 - Home Meds: 00:40 Novolog U-100 Insulin aspart Sub-Q [Active]; tw5 - PMHx: 00:40 Hypercholesterolemia; IDDM; tw5 - PSHx: 00:40 None; tw5 - Immunization history:: Client reports receiving the 2nd dose of the Covid vaccine, [employer] Flu vaccine is up to date. - Social history:: Smoking status: Reported history of juuling and/or vaping. Screenin:15 [facility] ED Fall Risk Assessment (Adult) History of falling in the last 3 months, kl including since admission No falls in past 3 months (0 pts) Confusion or Disorientation Yes (5 pts) Intoxicated or Sedated No (0 pts) Impaired Gait No (0 pts) Mobility Assist Device Used No (0 pt) Altered Elimination No (0 pt) Score/Fall Risk Level 0 - 2 = Low Risk Oriented to surroundings, Maintained a safe environment, Hourly rounding (assess needs \\T\\ fall precautionary measures) done. Abuse screen: Denies threats or abuse. Nutritional screening: No deficits noted. Tuberculosis screening: No symptoms or risk factors identified. Assessment: 00:45 General: Appears in no apparent distress. uncomfortable, Behavior is calm, cooperative, jb4 appropriate for age. Pain: Complains of pain in headache Pain does not radiate. Pain currently is 5 out of 10 on a pain scale. Neuro: Level of Consciousness is awake, alert, obeys commands, Oriented to person, place, time, situation. Cardiovascular: Patient's skin is warm and dry. Respiratory: Airway is patent Respiratory effort is even, unlabored, Respiratory pattern is regular, symmetrical. GI: No signs and/or symptoms were reported involving the gastrointestinal system. : No signs and/or symptoms were reported regarding the genitourinary system. EENT: Throat is clear is reddened with gag reflex present. Derm: Skin is intact, Skin is pink, warm \\T\\ dry. Musculoskeletal: Circulation, motion, and sensation intact. Range of motion: intact in all extremities. 01:45 Reassessment: Patient appears in no apparent distress at this time. Patient and/or jb4 family updated on plan of care and expected duration. Pain level reassessed. Patient is alert, oriented x 3, equal unlabored respirations, skin warm/dry/pink. 02:40 Reassessment: Patient appears in no apparent distress at this time. Patient and/or jb4 family updated on plan of care and expected duration. Pain level reassessed. Patient is alert, oriented x 3, equal unlabored respirations, skin warm/dry/pink. Vital Signs: 00:37 BP 133 / 84; Pulse 97; Resp 18; Temp 101.2; Pulse Ox 97% ; Weight 89.81 kg; Height 5 tw5 ft. 11 in. (180.34 cm); Pain 5/10; 01:45 BP 127 / 76; Pulse 85; Resp 16; Temp 102.7(O); Pulse Ox 97% on R/A; jb4 02:40 BP 126 / 75; Pulse 87; Resp 16; Temp 100.7; Pulse Ox 98% on R/A; jb4 00:37 Body Mass Index 27.62 (89.81 kg, 180.34 cm) tw5 ED Course: 00:27 Patient arrived in ED. ja2 00:28 Devin Cuadra PA is PHCP. cp 00:28 Marii Timmons MD is Attending Physician. cp 00:39 Triage completed. tw5 00:40 Arm band placed on. tw 00:57 Strep Sent. jb4 00:57 COVID-19/FLU A+B Sent. jb4 01:56 Yosvany Torres, RN is Primary Nurse. jb4 02:40 Patient has correct armband on for positive identification. Bed in low position. Call jb4 light in reach. Side rails up X 1. Client placed on continuous cardiac and pulse oximetry monitoring. NIBP monitoring applied. monitoring manager on. 02:40 No provider procedures requiring assistance completed. Patient did not have IV access jb4 during this emergency room visit. Administered Medications: 00:59 Drug: Ibuprofen 800 mg Route: PO; jb4 02:09 Follow up: Response: No adverse reaction; No change in condition; Temperature is jb4 unchanged 02:09 Drug: Tylenol 1000 mg Route: PO; jb4 02:39 Follow up: Response: No adverse reaction; Temperature is decreased jb4 02:35 Drug: Augmentin (Amoxicillin-Clavulanate) 875 mg Route: PO; jb4 02:40 Follow up: Response: Medication administered at discharge. jb4 Medication: 02:40 VIS not applicable for this client. jb4 Outcome: 02:19 Discharge ordered by . cp 02:40 Discharged to home ambulatory, with family. jb4 02:40 Condition: stable 02:40 Discharge instructions given to patient, family, Instructed on discharge instructions, follow up and referral plans. medication usage, Demonstrated understanding of instructions, follow-up care, medications, Prescriptions given X 3. 02:43 Patient left the ED. jb4 Signatures: Laura Meneses RN RN kl Devin Cuadra PA PA cp Bryson, James, RN RN jb4 Regine Jean Tiffany tw5 Corrections: (The following items were deleted from the chart) 02:41 02:14 Reassessment: pt anxious reassured sitting watching TV respirations even jb4 nonlabored . jennifer
--- NOTE | 2022-08-23 02:19 | EDPHYS ---
Physician Documentation [facility] Name: Altaf Perez Age: 32 yrs Sex: Male : 1990 Arrival Date: 08/23/2022 Time: 00:27 Bed 6 Private MD: ED Physician Marii Timmons HPI: 08/23 00:45 This 32 yrs old Male presents to ER via Ambulatory with complaints of Headache, Fever, cp Pain All Over, Congestion, Sore Throat, Nausea. 00:45 The patient complains of pain to the top of head and forehead. The patient describes cp the headache as aching. 00:45 Onset: The symptoms/episode began/occurred gradually, 3 day(s) ago. Associated signs cp and symptoms: Pertinent positives: fever, sore throat, congestion, Pertinent negatives: altered mental status, neck stiffness, vomiting, cough. Severity of symptoms: in the emergency department the pain is unchanged, despite home interventions. Patient reports testing positive for COVID-19 2 weeks ago. Historical: - Allergies: 00:40 No Known Allergies; tw5 - Home Meds: 00:40 Novolog U-100 Insulin aspart Sub-Q [Active]; tw5 - PMHx: 00:40 Hypercholesterolemia; IDDM; tw5 - PSHx: 00:40 None; tw5 - Immunization history:: Client reports receiving the 2nd dose of the Covid vaccine, [employer] Flu vaccine is up to date. - Social history:: Smoking status: Reported history of juuling and/or vaping. ROS: 00:50 Eyes: Negative for injury, pain, redness, and discharge. cp 00:50 Constitutional: Positive for body aches, fever, Negative for poor PO intake. 00:50 ENT: Positive for sore throat, Negative for drainage from ear(s), ear pain, difficulty swallowing, difficulty handling secretions. 00:50 Respiratory: Negative for cough, shortness of breath, wheezing. 00:50 Abdomen/GI: Negative for vomiting, diarrhea, constipation. 00:50 Skin: Negative for rash. 00:50 Neuro: Positive for headache, Negative for altered mental status, weakness. 00:50 All other systems are negative. Exam: 00:55 Constitutional: The patient appears in no acute distress, alert, awake, non-toxic, well cp developed, well nourished, febrile. 00:55 Head/Face: Normocephalic, atraumatic. cp 00:55 Eyes: Periorbital structures: appear normal, Conjunctiva: normal, no exudate, no injection, Sclera: no appreciated abnormality, Lids and lashes: appear normal, bilaterally. 00:55 ENT: External ear(s): are unremarkable, Ear canal(s): are normal, clear, TM's: bulging, is not appreciated, bilaterally, erythema, that is mild, on the left, Nose: is normal, Mouth: Lips: moist, Oral mucosa: moist, Posterior pharynx: Airway: no evidence of obstruction, patent, Tonsils: bilaterally enlarged, with erythema, Uvula: midline, erythema, that is moderate, Voice: is normal. 00:55 Neck: ROM/movement: Meningeal signs: are not present, nuchal rigidity, is not appreciated, Lymph nodes: lymphadenopathy is appreciated, anterior cervical nodes. 00:55 Chest/axilla: Inspection: normal. 00:55 Cardiovascular: Rate: normal, Rhythm: regular. 00:55 Respiratory: the patient does not display signs of respiratory distress, Respirations: normal, no use of accessory muscles, no retractions, labored breathing, is not present, Breath sounds: are clear throughout, no decreased breath sounds, no stridor, no wheezing. 00:55 Abdomen/GI: Inspection: abdomen appears normal, Palpation: abdomen is soft and non-tender, in all quadrants. 00:55 Back: pain, is absent, ROM is normal. 00:55 Skin: no rash present. 00:55 Neuro: Orientation: to person, place \T\ time. Mentation: is normal. Vital Signs: 00:37 BP 133 / 84; Pulse 97; Resp 18; Temp 101.2; Pulse Ox 97% ; Weight 89.81 kg; Height 5 tw5 ft. 11 in. (180.34 cm); Pain 5/10; 01:45 BP 127 / 76; Pulse 85; Resp 16; Temp 102.7(O); Pulse Ox 97% on R/A; jb4 02:40 BP 126 / 75; Pulse 87; Resp 16; Temp 100.7; Pulse Ox 98% on R/A; jb4 00:37 Body Mass Index 27.62 (89.81 kg, 180.34 cm) tw5 MDM: 00:35 Patient medically screened. 01:00 Differential diagnosis: meningitis, meningoencephalitis, migraine, sinusitis, strep cp throat, influenza, COVID-19. 02:18 Data reviewed: vital signs, nurses notes, lab test result(s). 02:18 Counseling: I had a detailed discussion with the patient and/or guardian regarding: the cp historical points, exam findings, and any diagnostic results supporting the discharge/admit diagnosis, lab results, to return to the emergency department if symptoms worsen or persist or if there are any questions or concerns that arise at home. Response to treatment: the patient's symptoms have mildly improved after treatment, and as a result, I will discharge patient. ED course: VSS. Patient appears non-toxic, Low suspicion for meningitis. Patient COVID-19 positive again at this visit. Will treat sore throat and ear infection with oral antibiotics and discharge to home for continued monitoring. 08/23 00:36 Order name: COVID-19/FLU A+B; Complete Time: 02:10 08/23 02:11 Interpretation: Reviewed. 08/23 00:36 Order name: Strep; Complete Time: 02:10 08/23 01:30 Order name: Throat Culture EDMS Administered Medications: 00:59 Drug: Ibuprofen 800 mg Route: PO; jb4 02:09 Follow up: Response: No adverse reaction; No change in condition; Temperature is jb4 unchanged 02:09 Drug: Tylenol 1000 mg Route: PO; jb4 02:39 Follow up: Response: No adverse reaction; Temperature is decreased jb4 02:35 Drug: Augmentin (Amoxicillin-Clavulanate) 875 mg Route: PO; jb4 02:40 Follow up: Response: Medication administered at discharge. jb4 Disposition Summary: 08/23/22 02:19 Discharge Ordered Location: Home cp Problem: new cp Symptoms: are unchanged cp Condition: Stable cp Diagnosis - Acute pharyngitis, unspecified cp - Otitis media, unspecified, left ear cp - SARS-associated coronavirus as the cause of diseases classified elsewhere cp Followup: cp - With: Private Physician - When: 1 - 2 days - Reason: Worsening of condition Discharge Instructions: - Discharge Summary Sheet cp - Otitis Media, Adult cp - Pharyngitis cp - COVID-19 cp - Things to Know about the COVID-19 Pandemic - [facility] cp - Form - Excuse from Work, School, or Physical Activity cp - 10 Things You Can Do to Manage Your COVID-19 Symptoms at Home - [facility] cp - COVID-19: Quarantine vs. Isolation - [facility] cp - Prevent the Spread of COVID-19 if You Are Sick - [facility] cp Forms: - Medication Reconciliation Form cp - Thank You Letter cp - Antibiotic Education cp - Prescription Opioid Use cp Prescriptions: - Lidocaine Viscous - take 5 milliliter by ORAL route every 4-6 hours As needed; 1 bottle; Refills: cp 0, Product Selection Permitted - Augmentin 875-125 mg Oral Tablet - take 1 tablet by ORAL route every 12 hours for 10 days; 20 tablet; Refills: 0, cp Product Selection Permitted - Ibuprofen 800 mg Oral Tablet - take 1 tablet by ORAL route every 8 hours As needed take with food; 30 tablet; cp Refills: 0, Product Selection Permitted Signatures: Dispatcher [employer] EDMS Devin Cuadra PA PA cp Yosvany Torres RN RN jb4 Alexus Villatoro 5 Corrections: (The following items were deleted from the chart) 08/24 00:08/23 00:30 Constitutional: Positive for body aches, fever, Negative for poor PO cp intake, cp 08/24 00:08/23 00:30 Respiratory: Negative for cough, shortness of breath, wheezing, cp cp 08/24 99:08/23 00:30 Abdomen/GI: Negative for vomiting, diarrhea, constipation, cp cp 08/24 99:08/23 00:30 Eyes: Negative for injury, pain, redness, and discharge, cp cp 08/24 99:08/23 00:30 ENT: Positive for sore throat, Negative for drainage from ear(s), ear pain, cp difficulty swallowing, difficulty handling secretions, cp 08/24 99:08/23 00:30 Neuro: Positive for headache, Negative for altered mental status, weakness, cp cp 08/24 99:08/23 00:30 Skin: Negative for rash, cp cp 08/24 99:08/23 00:30 All other systems are negative, cp cp
[2022-08-23] MEDS ORDERED: AMOX/K CLAV 875 MG TAB ONE (02:31)
[2022-08-23 02:50] VITALS: BP 126/75; TEMP 100.7; O2SAT 98
== END 2022-08-23 02:43 | disposition home or self-care (01) ==
LOC: ER 00:21
DX: U07.1 COVID-19 (principal); H66.92 Otitis media, unspecified, left ear
CPT/HCPCS: 0240U; 87070; 87081; 99284

== ENCOUNTER 2022-10-28 00:46 | Emergency (ER) | payer SELFPAY ==
--- OUTSIDE RECORDS SUMMARY | 2022-10-28 00:50 | XMS REPORT | Continuity of Care Document ---
:1990 Author Organization [facility] t Address [address] [facility] [address] [place] [address] Care Team Providers Name Role Phone Bina Ochoa Primary Care Physician [phone] Problems This patient has no known problems. [...] Goal Plan of Care Note [code = 36662-7] Goal Plan of Care Note [code = 47125-9] Goal Plan of Care Note [code = 11275-6] Goal Plan of Care Note [code = 88267-6] Goal Plan of Care Note [code = 80022-6] Goal Plan of Care Note [code = 42805-7] Goal Plan of Care Note [code = 88577-4] Goal Plan of Care Note [code = 08874-6] Goal Plan of Care Note [code = 29327-0] Goal Plan of Care Note [code = 16328-6] Goal Plan of Care Note [code = 64176-6] Goal Plan of Care Note [code = 77599-1] Goal Plan of Care Note [code = 72805-5] Goal Plan of Care Note [code = 02494-3] Goal Plan of Care Note [code = 15715-4] Goal Plan of Care Note [code = 09662-5] Goal Plan of Care Note [code = 76281-3] Goal Plan of Care Note [code = 52520-5] Goal Plan of Care Note [code = 62729-6] Goal Plan of Care Note [code = 95445-9] Goal Plan of Care Note [code = 37778-6] Goal Plan of Care Note [code = 36918-0] Goal Plan of Care Note [code = 30156-1] Goal Plan of Care Note [code = 55040-1] Goal Plan of Care Note [code = 40053-9] Goal Plan of Care Note [code = 00451-4] Goal Plan of Care Note [code = 79869-3] Goal Plan of Care Note [code = 45465-9] Goal Plan of Care Note [code = 51604-0] Goal Plan of Care Note [code = 06358-7] Goal Plan of Care Note [code = 16325-5] Goal Plan of Care Note [code = 66432-4] Goal Plan of Care Note [code = 57661-6] Goal Plan of Care Note [code = 84944-7] Goal Plan of Care Note [code = 66505-2] Goal Plan of Care Note [code = 52229-8] Goal Plan of Care Note [code = 99817-0] Goal Plan of Care Note [code = 71177-1] Goal Plan of Care Note [code = 08016-4] Goal Plan of Care Note [code = 54658-7] Goal Plan of Care Note [code = 63892-4] Goal Plan of Care Note [code = 63499-9] Goal Plan of Care Note [code = 75182-6] Goal Plan of Care Note [code = 63229-8] Goal Plan of Care Note [code = 17766-0] Goal Plan of Care Note [code = 88271-3] Goal Plan of Care Note [code = 47178-4] Goal Plan of Care Note [code = 35147-7] Goal Plan of Care Note [code = 52279-3] Goal Plan of Care Note [code = 85844-6] Goal Plan of Care Note [code = 48683-0] Goal Plan of Care Note [code = 82487-2] Goal Plan of Care Note [code = 22319-4] Encounters Start End Encounter Admission Attending Care Care Encounter Source Date/Time Date/Time Type Type Clinicians Facility Department ID 2022-10-26 2022-10-26 Outpatient [facility] [id number] Johann 10:43:17 10:43:17 [id number] F Dylon 2022-08-02 2022-08-02 Outpatient [facility] Johann 13:36:36 13:36:36 [id number] F Dylon 2022-08-02 2022-08-02 Outpatient [id number] 00:00:00 00:00:00 Visit j3hp-41ve 3eb-45ef-a -u8hc-2x1 6bc-3a884a 79tqd3668 gz7675 2022-06-27 2022-06-27 Outpatient [facility] Johann 14:28:49 14:28:49 [id number] F Dylon 2022-06-27 2022-06-27 Outpatient [id number]- [id number] e71s5v-d 00:00:00 00:00:00 Visit cq12-85bp z83-10fn-d -pl84-vv0 z68-ug238u 90lx26xyp d31cbc 2022-05-30 2022-05-30 Outpatient [id number]- [id number] 70616r-u 00:00:00 00:00:00 Visit y774-4421 467-4492-8 -22g9-2nf 8z5-0xfth8 qm22c7pf3 6f0de3 2022-05-24 2022-05-24 Outpatient [facility] [id number] Johann 13:25:23 13:25:23 [id number] F Dylon 2022-05-24 2022-05-24 Outpatient [id number] 00:00:00 00:00:00 Visit 8d12-3v74 b80-1c16-8 -8616-bb7 616-bb7bb5 df15mm473 6ly244 2022-05-17 2022-05-17 Outpatient q6c3sb03- [id number] h3tt15-1 00:00:00 00:00:00 Visit 22u9-3di1 3d6-8ww4-9 -8s2e-vbc m9z-fnpw22 t24mjbnbe ecbfaa 2022-04-26 2022-04-26 Outpatient [id number]- [id number] 0c 890c3a-b 00:00:00 00:00:00 Visit n13z-93zg 91d-41dc-9 -9142-545 142-545c34 h41hf8434 ku8525 Results Test Description Test Time Test Comments Results Result Comments Source HEMOGLOBIN A1c 2022-10-27 02:13:26 Test Item Value Reference Range Interpretation Comme nts HEMOGLOBIN A1c (test 9.6 % 4.2-5.6 H [employer] GUIDELINES FOR code = 06824) HGB A1C: PREDI ABETES/INCREASED RISK . . . . . . . 5.7-6.4% DI AGNOSIS OF DIABETES . . . . . . . . . >=6.5% WITH CONFIRMATION OR APPROPRIATE SYM PTOMS NOTE: ASSAY MAY BE AFFECTED BY HEM OGLOBINOPATHIES (SICKLE CELL ANEMIA, S-C DIS EASE, OTHERS) OR ARTIFICIALLY LOWERED BY DECR EASED RED CELL SURVIVAL (HEMOLYTIC ANEM IAS, BLOOD LOSS, ETC.). CONSIDER ALTERN ATE TESTING OR LABORATORY CONSULTATION. * [facility] has important pathology staff changes e ffective 10/18/2022. New pathology staff will provide uninterrupted, excellent patie nt care and clinical consultation. S ee URL: [email or web address]. UNLESS OTHERWISE INDIC ATED, ALL TESTING PERFORMED AT [facility] [employer] [address] [place] [address] SKIN DIVER: ALEX ELIAS M.D. CLIA NUMBER [id number] [place]. [id number] CULTURE, [id number] 16:24:13SPECIMEN NUMBER: [id number] CULTURE, URINE SPECIMEN NUMBER: [id number] SPECIMEN COMMENT: URINE SOURCE:URINE REPORT STATUS: FINAL ISOLATE NUMBER 1: ORGANISM: 05/26/2022 >100,000 CFU/ML GRAM NEGATIVE BA CILLI IDENTIFICATION: 05/27/2022 PROTEUS MIRABILIS P. MIRABILIS AMOXICILLIN/CA SENSITIVE <=8/4AMPICILLIN RESISTANT >16CEFAZOLIN SENSITIVE 4CEFTRIAXONE SENSITIVE <=1CIPROFLOXACIN SENSITIVE <=1LEVOFLOXACIN SENSITIVE <=2NITROFURANTOIN RESISTANT >64PIP/TAZOBAC SENSITIVE <=16TETRACYCLINE RESISTANT >8TOBRAMYCIN RESISTANT >8TRIMETH/SULFA RESISTANT >238 NOTE: NUMBERS DISPLAYED REPRESENT MINIMUM INHIBITORY CONCENTRATION (ALINE) WHICH IS EXPRESSED IN MCG/ML.CULTURE, URINE 2022-05-27 00:00:00 Test Item Value Reference Range Interpretation Comments CULTURE, URINE (test SPECIMEN NUMBER: code = 80519) [id number] CULTURE, [id number] 00:00:00 Test Item Value Reference Range Interpretation Comments CULTURE, URINE (test SPECIMEN NUMBER: code = 19973) [id number] CULTURE, [id number] 00:00:00 Test Item Value Reference Range Interpretation Comments CULTURE, URINE (test SPECIMEN NUMBER: code = 13850) [id number] CULTURE, [id number] 00:00:00 Test Item Value Reference Range Interpretation Comments CULTURE, URINE (test SPECIMEN NUMBER: code = 03064) [id number] CULTURE, [id number] 00:00:00 Test Item Value Reference Range Interpretation Comments CULTURE, URINE (test SPECIMEN NUMBER: code = 08219) [id number] CULTURE, [id number] 00:00:00 Test Item Value Reference Range Interpretation Comments CULTURE, URINE (test SPECIMEN NUMBER: code = 64300) [id number] CULTURE, [id number] 00:00:00 Test Item Value Reference Range Interpretation Comments CULTURE, URINE (test SPECIMEN NUMBER: code = 12655) [id number] CULTURE, [id number] 00:00:00 Test Item Value Reference Range Interpretation Comments CULTURE, URINE (test SPECIMEN NUMBER: code = 74171) [id number] CT/NG, NAAT, [id number] 19:07:28 Test Item Value Reference Range Interpretation Comments GONORRHEA, NAAT NEGATIVE NEGATIVE IMPORT ANT NOTICE: SEE (test code = [place] [address]) [email or web address] [employer]obas[employer]Kit Note: Assay methodology is nucleic acid amplification b y paper bundler m ediated amplification ( TMA) utilizing the A ptima Combo 2 Assay. CHLAMYDIA, NAAT NEGATIVE NEGATIVE IMPORT ANT NOTICE: SEE (test code = [place] [address]) [email or web address] [employer]obas[employer]rine[employer] Note: Assay methodology is nucleic acid amplification b y paper bundler m ediated amplification ( TMA) utilizing the A ptima Combo 2 Assay. UNLESS OTHERWISE INDICATED, ALL TESTING PERFORMED [facility]. [address] [place] [address] DIRECTOR: KUSHAL AGUSTIN M.D. [place] NUMBER [id number] CAP ACCREDITATION N O. [id number] CT/NG, TMA, [id number] 00:00:00 Test Item Value Reference Range Interpretation Comments GONORRHEA, NAAT (test code = 57537) NEGATIVE CHLAMYDIA, NAAT (test code = 30994) NEGATIVE CT/NG, TMA, [id number] 00:00:00 Test Item Value Reference Range Interpretation Comments GONORRHEA, NAAT (test code = 47196) NEGATIVE CHLAMYDIA, NAAT (test code = 85940) NEGATIVE CT/NG, TMA, [id number] 00:00:00 Test Item Value Reference Range Interpretation Comments GONORRHEA, NAAT (test code = 37418) NEGATIVE CHLAMYDIA, NAAT (test code = 80065) NEGATIVE CT/NG, TMA, [id number] 00:00:00 Test Item Value Reference Range Interpretation Comments GONORRHEA, NAAT (test code = 11012) NEGATIVE CHLAMYDIA, NAAT (test code = 73161) NEGATIVE CT/NG, TMA, [id number] 00:00:00 Test Item Value Reference Range Interpretation Comments GONORRHEA, NAAT (test code = 92765) NEGATIVE CHLAMYDIA, NAAT (test code = 73748) NEGATIVE CT/NG, TMA, [id number] 00:00:00 Test Item Value Reference Range Interpretation Comments GONORRHEA, NAAT (test code = 80018) NEGATIVE CHLAMYDIA, NAAT (test code = 07981) NEGATIVE CT/NG, TMA, [id number] 00:00:00 Test Item Value Reference Range Interpretation Comments GONORRHEA, NAAT (test code = 31108) NEGATIVE CHLAMYDIA, NAAT (test code = 67288) NEGATIVE CT/NG, TMA, [id number] 00:00:00 Test Item Value Reference Range Interpretation Comments GONORRHEA, NAAT (test code = 78602) NEGATIVE CHLAMYDIA, NAAT (test code = 87865) NEGATIVE H. PYLORI (BREATH)2022-05-19 15:05:57 Test Item Value Reference Range Interpretation Comments H. PYLORI (BREATH) (test code = NEGATIVE NEGATIVE 74618) [id number] 04:16:31 Test Item Value Reference Range Interpretation Comments AMYLASE (test code = 2205) 37 U/L 28-100 [id number] 04:16:31 Test Item Value Reference Range Interpretation Comments LIPASE (test code = 18 U/L 13-60 UNLESS OTHERWISE 2057) INDICATED, ALL TESTING PERFORMED [facility] [address] [place] [address] DIRECTOR: KUSHAL AGUSTIN M.D. CLIA NUMBER [id number] CAP ACCREDITATION N O. [id number] 00:00:00 Test Item Value Reference Range Interpretation Comments LIPASE (test code = 2058) 18 U/L [id number] 00:00:00 Test Item Value Reference Range Interpretation Comments LIPASE (test code = 2057) 18 U/L [id number] 00:00:00 Test Item Value Reference Range Interpretation Comments LIPASE (test code = 2058) 18 U/L H. PYLORI (BREATH)2022-05-19 00:00:00 Test Item Value Reference Range Interpretation Comments H. PYLORI (BREATH) (test code = NEGATIVE 99960) H. PYLORI (BREATH)2022-05-19 00:00:00 Test Item Value Reference Range Interpretation Comments H. PYLORI (BREATH) (test code = NEGATIVE 66353) [id number] 00:00:00 Test Item Value Reference Range Interpretation Comments AMYLASE (test code = 2205) 37 U/L [id number] 00:00:00 Test Item Value Reference Range Interpretation Comments AMYLASE (test code = 2204) 37 U/L [id number] 00:00:00 Test Item Value Reference Range Interpretation Comments LIPASE (test code = 2057) 18 U/L [id number] 00:00:00 Test Item Value Reference Range Interpretation Comments LIPASE (test code = 2057) 18 U/L [id number] 00:00:00 Test Item Value Reference Range Interpretation Comments LIPASE (test code = 2057) 18 U/L H. PYLORI (BREATH)2022-05-19 00:00:00 Test Item Value Reference Range Interpretation Comments H. PYLORI (BREATH) (test code = NEGATIVE 06774) H. PYLORI (BREATH)2022-05-19 00:00:00 Test Item Value Reference Range Interpretation Comments H. PYLORI (BREATH) (test code = NEGATIVE 67217) [id number] 00:00:00 Test Item Value Reference Range Interpretation Comments AMYLASE (test code = 2204) 37 U/L [id number] 00:00:00 Test Item Value Reference Range Interpretation Comments AMYLASE (test code = 2204) 37 U/L [id number] 00:00:00 Test Item Value Reference Range Interpretation Comments LIPASE (test code = 2057) 18 U/L [id number] 00:00:00 Test Item Value Reference Range Interpretation Comments LIPASE (test code = 2057) 18 U/L [id number] 00:00:00 Test Item Value Reference Range Interpretation Comments LIPASE (test code = 2057) 18 U/L H. PYLORI (BREATH)2022-05-19 00:00:00 Test Item Value Reference Range Interpretation Comments H. PYLORI (BREATH) (test code = NEGATIVE 63591) H. PYLORI (BREATH)2022-05-19 00:00:00 Test Item Value Reference Range Interpretation Comments H. PYLORI (BREATH) (test code = NEGATIVE 41923) [id number] 00:00:00 Test Item Value Reference Range Interpretation Comments AMYLASE (test code = 2204) 37 U/L [id number] 00:00:00 Test Item Value Reference Range Interpretation Comments AMYLASE (test code = 2204) 37 U/L [id number] 00:00:00 Test Item Value Reference Range Interpretation Comments LIPASE (test code = 2057) 18 U/L [id number] 00:00:00 Test Item Value Reference Range Interpretation Comments LIPASE (test code = 2057) 18 U/L [id number] 00:00:00 Test Item Value Reference Range Interpretation Comments LIPASE (test code = 2057) 18 U/L H. PYLORI (BREATH)2022-05-19 00:00:00 Test Item Value Reference Range Interpretation Comments H. PYLORI (BREATH) (test code = NEGATIVE 69085) H. PYLORI (BREATH)2022-05-19 00:00:00 Test Item Value Reference Range Interpretation Comments H. PYLORI (BREATH) (test code = NEGATIVE 76718) [id number] 00:00:00 Test Item Value Reference Range Interpretation Comments AMYLASE (test code = 2204) 37 U/L [id number] 00:00:00 Test Item Value Reference Range Interpretation Comments AMYLASE (test code = 2204) 37 U/L HEMOGLOBIN [id number] 23:37:11 Test Item Value Reference Range Interpretation Comments HEMOGLOBIN A1c (test 10.4 % 4.2-5.6 H [employer] DIABETES code = 96661) ASSOCIATION [employer] FOR HGB A1C: PREDIABETES/INC REASED [...] INDICATED, ALL TESTING PER FORMED AT[facility]IN[facility] PATH [facility] [place] [address] [place] [address] LABORATORY DIRE CTOR: Lelo SOLOMON. CLIA NUMBER [id number] CAP ACCREDITATION N O. [id number] COMPREHENSIVE METABOLIC [id number] 06:29:07 Test Item Value Reference Range Interpretation Comments GLUCOSE (test code = 264 MG/DL 70-99 H 2216) BUN (test code = 9 MG/DL 6-20 2207) CREATININE (test 0.68 MG/DL 0.80-1.40 L code = 2214) eGFR (2020 CKD-EPI) 127 >60 (test code = 94472) ML/MIN/1.73 CALC BUN/CREAT (test 13 RATIO 6-28 code = 2235) SODIUM (test code = 143 MEQ/L 003-448 3018) POTASSIUM (test code 4.6 MEQ/L 3.5-5.4 = 2227) CHLORIDE (test code 105 MEQ/L 95-107 = 2214) CARBON DIOXIDE (test 24 MEQ/L 19-31 code = 220) CALCIUM (test code = 9.3 MG/DL 8.5-10.5 2208) PROTEIN, TOTAL (test 6.8 G/DL 6.1-8.3 code = 222) ALBUMIN (test code = 4.1 G/DL 3.5-5.2 2200) CALC GLOBULIN (test 2.7 G/DL 1.9-3.7 code = 2240) CALC A/G RATIO (test 1.5 RATIO 1.0-2.6 code = 2234) BILIRUBIN, TOTAL 0.4 MG/DL See_Comment [Automated message] (test code = 2207) The syste m which generated this result transmit stephen reference range : <=1.2. The refe rence range was not u sed to interpret th is result as normal/abnormal . ALKALINE PHOSPHATASE 76 U/L 40-112 (test code = 2204) AST (test code = 17 U/L 9-50 2217) ALT (test code = 20 U/L 5-50 2218) LIPID [id number] 06:29:07 Test Item Value Reference Range Interpretation [...] MOREINFORMATION , SEE CLIENT ANNOUNCE MENT AT [email or web address] RISK RATIO LDL/HDL 2.95 RATIO <3.55 (test code = 2238) LIPID [id number] 00:00:00 Test Item Value Reference Range Interpretation Comments CHOLESTEROL (test code = 2210) 172 MG/DL TRIGLYCERIDES (test code = 2232) 84 MG/DL HDL CHOLESTEROL (test code = 2220) 39 MG/DL CALC LDL CHOL (test code = 2237) 115 MG/DL RISK RATIO LDL/HDL (test code = 2.95 RATIO 2238) HEMOGLOBIN [id number] 00:00:00 Test Item Value Reference Range Interpretation Comments HEMOGLOBIN A1c (test code = 65861) 10.4 % HEMOGLOBIN [id number] 00:00:00 Test Item Value Reference Range Interpretation Comments HEMOGLOBIN A1c (test code = 04982) 10.4 % HEMOGLOBIN [id number] 00:00:00 Test Item Value Reference Range Interpretation Comments HEMOGLOBIN A1c (test code = 76936) 10.4 % COMPREHENSIVE METABOLIC [id number] 00:00:00 Test Item Value Reference Range Interpretation Comments GLUCOSE (test code = 2217) 264 MG/DL BUN (test code = 2208) 9 MG/DL CREATININE (test code = 2214) 0.68 MG/DL eGFR (2020 CKD-EPI) (test 127 ML/MIN/1.73 code = 98913) CALC BUN/CREAT (test code = 13 RATIO [...] code = 2219) 20 U/L COMPREHENSIVE METABOLIC [id number] 00:00:00 Test Item Value Reference Range Interpretation Comments GLUCOSE (test code = 2217) 264 MG/DL BUN (test code = 2208) 9 MG/DL CREATININE (test code = 2214) 0.68 MG/DL eGFR (2020 CKD-EPI) (test 127 ML/MIN/1.73 code = 66580) CALC BUN/CREAT (test code = 13 RATIO [...] (test code = 2219) 20 U/L LIPID [id number] 00:00:00 Test Item Value Reference Range Interpretation Comments CHOLESTEROL (test code = 2210) 172 MG/DL TRIGLYCERIDES (test code = 2232) 84 MG/DL HDL CHOLESTEROL (test code = 2220) 39 MG/DL CALC LDL CHOL (test code = 2237) 115 MG/DL RISK RATIO LDL/HDL (test code = 2.95 RATIO 2238) LIPID [id number] 00:00:00 Test Item Value Reference Range Interpretation Comments CHOLESTEROL (test code = 2210) 172 MG/DL TRIGLYCERIDES (test code = 2232) 84 MG/DL HDL CHOLESTEROL (test code = 2220) 39 MG/DL CALC LDL CHOL (test code = 2237) 115 MG/DL RISK RATIO LDL/HDL (test code = 2.95 RATIO 2238) HEMOGLOBIN [id number] 00:00:00 Test Item Value Reference Range Interpretation Comments HEMOGLOBIN A1c (test code = 95906) 10.4 % HEMOGLOBIN [id number] 00:00:00 Test Item Value Reference Range Interpretation Comments HEMOGLOBIN A1c (test code = 29597) 10.4 % HEMOGLOBIN [id number] 00:00:00 Test Item Value Reference Range Interpretation Comments HEMOGLOBIN A1c (test code = 49906) 10.4 % COMPREHENSIVE METABOLIC [id number] 00:00:00 Test Item Value Reference Range Interpretation Comments GLUCOSE (test code = 2217) 264 MG/DL BUN (test code = 2208) 9 MG/DL CREATININE (test code = 2214) 0.68 MG/DL eGFR (2020 CKD-EPI) (test 127 ML/MIN/1.73 code = 56985) CALC BUN/CREAT (test code = 13 RATIO [...] code = 2219) 20 U/L COMPREHENSIVE METABOLIC [id number] 00:00:00 Test Item Value Reference Range Interpretation Comments GLUCOSE (test code = 2217) 264 MG/DL BUN (test code = 2208) 9 MG/DL CREATININE (test code = 2214) 0.68 MG/DL eGFR (2020 CKD-EPI) (test 127 ML/MIN/1.73 code = 64786) CALC BUN/CREAT (test code = 13 RATIO [...] (test code = 2219) 20 U/L LIPID [id number] 00:00:00 Test Item Value Reference Range Interpretation Comments CHOLESTEROL (test code = 2210) 172 MG/DL TRIGLYCERIDES (test code = 2232) 84 MG/DL HDL CHOLESTEROL (test code = 2220) 39 MG/DL CALC LDL CHOL (test code = 2237) 115 MG/DL RISK RATIO LDL/HDL (test code = 2.95 RATIO 2238) LIPID [id number] 00:00:00 Test Item Value Reference Range Interpretation Comments CHOLESTEROL (test code = 2210) 172 MG/DL TRIGLYCERIDES (test code = 2232) 84 MG/DL HDL CHOLESTEROL (test code = 2220) 39 MG/DL CALC LDL CHOL (test code = 2237) 115 MG/DL RISK RATIO LDL/HDL (test code = 2.95 RATIO 2238) HEMOGLOBIN [id number] 00:00:00 Test Item Value Reference Range Interpretation Comments HEMOGLOBIN A1c (test code = 84323) 10.4 % HEMOGLOBIN [id number] 00:00:00 Test Item Value Reference Range Interpretation Comments HEMOGLOBIN A1c (test code = 90660) 10.4 % HEMOGLOBIN [id number] 00:00:00 Test Item Value Reference Range Interpretation Comments HEMOGLOBIN A1c (test code = 33963) 10.4 % COMPREHENSIVE METABOLIC [id number] 00:00:00 Test Item Value Reference Range Interpretation Comments GLUCOSE (test code = 2217) 264 MG/DL BUN (test code = 2208) 9 MG/DL CREATININE (test code = 2214) 0.68 MG/DL eGFR (2020 CKD-EPI) (test 127 ML/MIN/1.73 code = 65007) CALC BUN/CREAT (test code = 13 RATIO 2235) SODIUM (test code = 2231) 143 MEQ/L POTASSIUM (test code = 2228) 4.6 MEQ/L CHLORIDE (test code = 2215) 105 MEQ/L CARBON DIOXIDE (test code = 24 MEQ/L 2206) CALCIUM (test code = 2209) 9.3 MG/DL [...] code = 2219) 20 U/L COMPREHENSIVE METABOLIC [id number] 00:00:00 Test Item Value Reference Range Interpretation Comments GLUCOSE (test code = 2217) 264 MG/DL BUN (test code = 2208) 9 MG/DL CREATININE (test code = 2214) 0.68 MG/DL eGFR (2020 CKD-EPI) (test 127 ML/MIN/1.73 code = 61407) CALC BUN/CREAT (test code = 13 RATIO [...] (test code = 2219) 20 U/L LIPID [id number] 00:00:00 Test Item Value Reference Range Interpretation Comments CHOLESTEROL (test code = 2210) 172 MG/DL TRIGLYCERIDES (test code = 2232) 84 MG/DL HDL CHOLESTEROL (test code = 2220) 39 MG/DL CALC LDL CHOL (test code = 2237) 115 MG/DL RISK RATIO LDL/HDL (test code = 2.95 RATIO 2238) LIPID [id number] 00:00:00 Test Item Value Reference Range Interpretation Comments CHOLESTEROL (test code = 2210) 172 MG/DL TRIGLYCERIDES (test code = 2232) 84 MG/DL HDL CHOLESTEROL (test code = 2220) 39 MG/DL CALC LDL CHOL (test code = 2237) 115 MG/DL RISK RATIO LDL/HDL (test code = 2.95 RATIO 2238) HEMOGLOBIN [id number] 00:00:00 Test Item Value Reference Range Interpretation Comments HEMOGLOBIN A1c (test code = 42738) 10.4 % HEMOGLOBIN [id number] 00:00:00 Test Item Value Reference Range Interpretation Comments HEMOGLOBIN A1c (test code = 65000) 10.4 % HEMOGLOBIN [id number] 00:00:00 Test Item Value Reference Range Interpretation Comments HEMOGLOBIN A1c (test code = 21414) 10.4 % COMPREHENSIVE METABOLIC [id number] 00:00:00 Test Item Value Reference Range Interpretation Comments GLUCOSE (test code = 2217) 264 MG/DL BUN (test code = 2208) 9 MG/DL CREATININE (test code = 2214) 0.68 MG/DL eGFR (2020 CKD-EPI) (test 127 ML/MIN/1.73 code = 32476) CALC BUN/CREAT (test code = 13 RATIO 5) SODIUM (test code = 2231) 143 MEQ/L [...] code = 2219) 20 U/L COMPREHENSIVE METABOLIC [id number] 00:00:00 Test Item Value Reference Range Interpretation Comments GLUCOSE (test code = 2217) 264 MG/DL BUN (test code = 2208) 9 MG/DL CREATININE (test code = 2214) 0.68 MG/DL eGFR (2020 CKD-EPI) (test 127 ML/MIN/1.73 code = 29653) CALC BUN/CREAT (test code = 13 RATIO [...] (test code = 2219) 20 U/L LIPID [id number] 00:00:00 Test Item Value Reference Range Interpretation Comments CHOLESTEROL (test code = 2210) 172 MG/DL TRIGLYCERIDES (test code = 2232) 84 MG/DL HDL CHOLESTEROL (test code = 2220) 39 MG/DL CALC LDL CHOL (test code = 2237) 115 MG/DL RISK RATIO LDL/HDL (test code = 2.95 RATIO 2238) LIPID [id number] 00:00:00 Test Item Value Reference Range Interpretation Comments CHOLESTEROL (test code = 2210) 172 MG/DL TRIGLYCERIDES (test code = 2232) 84 MG/DL HDL CHOLESTEROL (test code = 2220) 39 MG/DL CALC LDL CHOL (test code = 2237) 115 MG/DL RISK RATIO LDL/HDL (test code = 2.95 RATIO 2238) HEMOGLOBIN [id number] 00:00:00 Test Item Value Reference Range Interpretation Comments HEMOGLOBIN A1c (test code = 14604) 10.4 % HEMOGLOBIN [id number] 00:00:00 Test Item Value Reference Range Interpretation Comments HEMOGLOBIN A1c (test code = 21717) 10.4 % HEMOGLOBIN [id number] 00:00:00 Test Item Value Reference Range Interpretation Comments HEMOGLOBIN A1c (test code = 95807) 10.4 % COMPREHENSIVE METABOLIC [id number] 00:00:00 Test Item Value Reference Range Interpretation Comments GLUCOSE (test code = 2217) 264 MG/DL BUN (test code = 2208) 9 MG/DL CREATININE (test code = 2214) 0.68 MG/DL eGFR (2020 CKD-EPI) (test 127 ML/MIN/1.73 code = 61008) CALC BUN/CREAT (test code = 13 RATIO [...] code = 2219) 20 U/L COMPREHENSIVE METABOLIC [id number] 00:00:00 Test Item Value Reference Range Interpretation Comments GLUCOSE (test code = 2217) 264 MG/DL BUN (test code = 2208) 9 MG/DL CREATININE (test code = 2214) 0.68 MG/DL eGFR (2020 CKD-EPI) (test 127 ML/MIN/1.73 code = 59217) CALC BUN/CREAT (test code = 13 RATIO [...] (test code = 2219) 20 U/L LIPID [id number] 00:00:00 Test Item Value Reference Range Interpretation Comments CHOLESTEROL (test code = 2210) 172 MG/DL TRIGLYCERIDES (test code = 2232) 84 MG/DL HDL CHOLESTEROL (test code = 2220) 39 MG/DL CALC LDL CHOL (test code = 2237) 115 MG/DL RISK RATIO LDL/HDL (test code = 2.95 RATIO 8)
[2022-10-28 01:30] LABS: Absolute Lymphocytes (CBC) 1.8 K/uL (0.7-4.9); Hematocrit 38.8 % (39.6-49.0); MCV 89.3 fL (80-100); MPV 7.6 fL (7.6-11.3); RBC Red Blood Cell Count 4.35 M/uL (4.33-5.43)
[2022-10-28 01:49] LABS: Bilirubin Total 0.4 mg/dL (0.2-1.0); Potassium 3.6 mmol/L (3.5-5.1); Protein, Total 7.7 g/dL (6.4-8.2)
[2022-10-28 01:58] LABS: Urine Blood Negative (Negative); Urine Glucose Negative (Negative); Urine Protein Negative (Negative); Urine Specific Gravity 1.025 (1.005-1.030)
[2022-10-28 02:07] LABS: SARS-COV-2 RT PCR NEGATIVE (NEGATIVE)
[2022-10-28] MEDS ORDERED: NA CHLORIDE 0.9% 1,000 ML ONE (02:30)
[2022-10-28] MEDS ORDERED: FAMOTIDINE 20 MG/2 ML VIAL IV ONE (02:30)
[2022-10-28] MEDS ORDERED: ONDANSETRON 4 MG/2 ML VIAL ONE (02:30)
[2022-10-28 02:35] LABS: Urine Bacteria <20 /HPF (<20); Urine RBC <5 /HPF (None Seen)
[2022-10-28] MEDS ORDERED: DICYCLOMINE HCL 20 MG/2 ML AMP IM ONE (03:00)
[2022-10-28 08:53] VITALS: TEMP 98.4
[2022-10-28 08:55] VITALS: BP 114/74; O2SAT 100
--- NOTE | 2022-10-28 20:56 | RAD REPORT ---
EXAM DESCRIPTION: CT - Abdomen Pelvis W Contrast - 10/28/2022 6:29 am CLINICAL HISTORY: The patient is 32 years old and is Male; lower abd pain, nausea, constipation TECHNIQUE: Axial computed tomography images of the abdomen and pelvis with intravenous contrast. S agittal and coronal reformatted images were created and reviewed. This CT exam was performed using one or more of the following dose reduction techniques: automated exposure control, adjustment of t he mA and/or kV according to patient size, and/or use of iterative reconstruction technique. COMPARISON: No relevant prior studies available. FINDINGS: Lung bases: Unremarkable. No mass. No consolidation. ABDOMEN: Liver: Unremarkable. No mass. Gallbladder and bile ducts: Unremarkable. No calcified stones. No ductal dilation. Pancreas: Unremarkable. No mass. No ductal dilation. Spleen: Unremarkable. No splenomegaly. Adrenals: Unremarkable. No mass. Kidneys and ureters: Unremarkable. No solid mass. No hydronephrosis. Stomach and bowel: Unremarkable. No obstruction. No mucosal thickening. PELVIS: Appendix: The appendix is normal. Bladder: Unremarkable. Reproductive: Unremarkable as visualized. ABDOMEN and PELVIS: Intraperitoneal space: Unremarkable. No free air. No significant fluid collection. Bones/joints: No acute fracture. No dislocation. Soft tissues: Unremarkable. Vasculature: Unremarkable. No abdominal aortic aneurysm. Lymph nodes: Unremarkable. No enlarged lymph nodes. IMPRESSION: No acute finding in the abdomen/pelvis. Electronically signed by: Dominik Phan MD 10/28/2022 3:13 AM MEDICAL PHYSICS TEACHER Due to temporary technical issues with the PACS/Fluency reporting system, reports are being signed by the in house radiologists without review as a courtesy to insure prompt reporting. The interpreting radiologist is fully responsible for the content of the report.
--- NOTE | 2022-11-10 16:02 | EDPHYS ---
Physician Documentation [facility] Name: Altaf Perez Age: 32 yrs Sex: Male : 1990 Arrival Date: 10/28/2022 Time: 00:49 Bed 4 Private MD: NATHALIE Physician Devin Castro HPI: 10/28 01:05 This 32 yrs old Male presents to ER via Unassigned with complaints of Nausea, Abdominal cp Pain. 01:05 The patient presents to the emergency department with nausea, abdominal pain, of the cp mid abdomen. Onset: The symptoms/episode began/occurred 4 day(s) ago. 01:05 Associated signs and symptoms: Pertinent positives: nausea, Pertinent negatives: cp constipation, fever. 01:05 Severity of symptoms: in the emergency department the symptoms are unchanged despite cp home interventions. Historical: - Allergies: 00:55 No Known Allergies; ha1 - Home Meds: 00:55 Novolog U-100 Insulin aspart Sub-Q [Active]; ha1 - PMHx: 00:55 Hypercholesterolemia; IDDM; ha1 - Immunization history:: Adult Immunizations unknown. - Social history:: Smoking status: unknown. ROS: 01:10 Constitutional: Negative for body aches, chills, fever, poor PO intake. cp 01:10 Eyes: Negative for injury, pain, redness, and discharge. cp 01:10 ENT: Negative for drainage from ear(s), ear pain, sore throat, difficulty swallowing, difficulty handling secretions. 01:10 Cardiovascular: Negative for chest pain. 01:10 Respiratory: Negative for cough, shortness of breath, wheezing. 01:10 Abdomen/GI: Positive for abdominal pain, nausea, anorexia, Negative for vomiting, diarrhea, constipation. 01:10 : Negative for urinary symptoms, testicular pain 01:10 Neuro: Positive for headache, Negative for altered mental status, weakness. 01:10 All other systems are negative. Exam: 01:15 Constitutional: The patient appears in no acute distress, alert, awake, non-toxic, well cp developed, well nourished. 01:15 Head/Face: Normocephalic, atraumatic. cp 01:15 Eyes: Periorbital structures: appear normal, Conjunctiva: normal, no exudate, no injection, Sclera: no appreciated abnormality, Lids and lashes: appear normal, bilaterally. 01:15 ENT: External ear(s): are unremarkable, Nose: is normal, Mouth: Lips: moist, Oral mucosa: moist, Posterior pharynx: is normal, airway is patent. 01:15 Chest/axilla: Inspection: normal. 01:15 Cardiovascular: Rate: normal, Rhythm: regular. 01:15 Respiratory: the patient does not display signs of respiratory distress, Respirations: normal, no use of accessory muscles, no retractions, labored breathing, is not present, Breath sounds: are clear throughout, no decreased breath sounds. 01:15 Abdomen/GI: Inspection: abdomen appears normal, Bowel sounds: active, all quadrants, Palpation: soft, in all quadrants, mild abdominal tenderness, in all quadrants, rebound tenderness, is not appreciated, involuntary guarding, is not appreciated. 01:15 Back: pain, that is mild, of the mid low back, ROM is normal. 01:15 Neuro: Orientation: to person, place \T\ time. Mentation: is normal, Motor: moves all fours, strength is normal, Gait: is steady. Vital Signs: 01:01 BP 125 / 85; Pulse 80; Resp 18; Temp 98.4(O); Pulse Ox 100% on R/A; Weight 89.81 kg; oe Height 5 ft. 11 in. ; Pain 5/10; 02:00 BP 112 / 77; Pulse 78; Resp 18 S; Pulse Ox 99% ; ha1 03:00 BP 114 / 74; Pulse 66; Resp 18 S; Pulse Ox 100% on R/A; ha1 01:01 Body Mass Index 27.62 (89.81 kg, 180.34 cm) oe 01:01 Pain Scale: Adult oe MDM: 00:57 Patient medically screened. karuna 01:30 Differential diagnosis: Nonspecific abd pain, gastritis, cholecystitis, pancreatitis, cp appendicitis, diverticulitis, viral gastroenteritis, gastroenteritis. 03:08 Data reviewed: vital signs, nurses notes, lab test result(s). Transition of care: After cp a detail discussion of the patient's case, care is transferred to Devin Castro MD. 10/28 01:00 Order name: CBC with Diff; Complete Time: 01:36 cp 10/28 01:36 Interpretation: Normal except: HGB 13.1; HCT 38.8. cp 10/28 01:00 Order name: CMP; Complete Time: 02:43 cp 10/28 01:00 Order name: Lipase; Complete Time: 02:43 cp 10/28 01:00 Order name: Urine Microscopic Only; Complete Time: 02:43 cp 10/28 01:00 Order name: COVID-19/FLU A+B; Complete Time: 02:43 cp 10/28 01:58 Order name: Urine Dipstick-Ancillary; Complete Time: 02:43 EDMS 10/28 01:36 Order name: CT Abd/Pelvis - IV Contrast Only cp 10/28 01:00 Order name: IV Saline Lock; Complete Time: 01:28 cp 10/28 01:00 Order name: Labs collected and sent; Complete Time: 01:28 cp 10/28 01:00 Order name: Urine Dipstick-Ancillary (obtain specimen); Complete Time: 02:00 cp Administered Medications: 02:20 Drug: NS 0.9% IV 1000 ml Route: IV; Rate: 1 bolus; Site: right antecubital; ha1 03:35 Follow up: Response: No adverse reaction; IV Status: Completed infusion; IV Intake: ha1 1000ml 02:20 Drug: Ondansetron IVP 4 mg Route: IVP; Site: right antecubital; ha1 02:50 Follow up: Response: No adverse reaction ha1 02:28 Drug: Famotidine IVP 20 mg Route: IVP; Site: right antecubital; ha1 02:50 Follow up: Response: No adverse reaction ha1 02:50 Drug: Dicyclomine IM 20 mg Route: IM; Site: right deltoid; ha1 03:37 Follow up: Response: No adverse reaction ha1 Disposition Summary: 10/28/22 03:23 Discharge Ordered Location: Home karuna Problem: new karuna Symptoms: have improved karuna Condition: Stable karuna Diagnosis - Abdominal pain, Generalized karuna - Vomiting karuna - Nausea with vomiting, unspecified karuna Followup: karuna - With: Private Physician - When: 2 - 3 days - Reason: Recheck today's complaints, Continuance of care, Re-evaluation by your physician Discharge Instructions: - Discharge Summary Sheet karuna - Abdominal Pain, Adult karuna - Nausea and Vomiting, Adult karuna - Nausea, Adult karuna - Abdominal Pain, Adult, [facility] karuna - Vomiting, Adult karuna Forms: - Medication Reconciliation Form karuna - Thank You Letter karuna - Antibiotic Education karuna - Prescription Opioid Use [facility] Prescriptions: - Pepcid 20 mg Oral Tablet - take 1 tablet by ORAL route every 12 hours for 10 days; 20 tablet; Refills: 0, [facility] Product Selection Permitted - Zofran 4 mg Oral Tablet - take 1 tablet by ORAL route every 12 hours As needed; 20 tablet; Refills: 0, [facility] Product Selection Permitted - dicyclomine 20 mg Oral Tablet - take 1 tablet by ORAL route 4 times per day; 28 tablet; Refills: 0, Product [facility] Selection Permitted Signatures: Dispatcher [employer] Devin Nunez MD MD cha Page, Corey, PA PA Cat Montalvo, RN RN ha1
--- NOTE | 2022-11-10 16:02 | ER ---
Nurse's Notes [facility] Name: Altaf Perez Age: 32 yrs Sex: Male : 1990 Arrival Date: 10/28/2022 Time: 00:49 Bed 4 Private MD: Diagnosis: Abdominal pain, Generalized;Vomiting;Nausea with vomiting, unspecified Presentation: 10/28 00:55 Chief complaint: Patient states: I have been having nausea and abdominal pain for the ha1 past six days. I had diarrhea as well but it has stopped . 00:55 Method Of Arrival: Ambulatory ha1 00:55 Ebola Screen: No symptoms or risks identified at this time. Initial Sepsis Screen: Does ha1 the patient meet any 2 criteria? No. Patient's initial sepsis screen is negative. Does the patient have a suspected source of infection? No. Patient's initial sepsis screen is negative. Risk Assessment: Do you want to hurt yourself or someone else? Patient reports no desire to harm self or others. 00:55 Coronavirus screen: Vaccine status: Patient reports being unvaccinated. 1 00:55 Onset of symptoms was October 28, 2022. ha1 00:55 Acuity: CHRISTIANA 3 ha1 Triage Assessment: 00:55 General: Appears comfortable, Behavior is calm, cooperative. Pain: Complains of pain in ha1 abdomen Pain does not radiate. Pain currently is 6 out of 10 on a pain scale. Quality of pain is described as throbbing. EENT: No signs and/or symptoms were reported regarding the EENT system. Neuro: Level of Consciousness is awake, alert, obeys commands, Oriented to person, place, time, situation. Cardiovascular: Capillary refill < 3 seconds Patient's skin is warm and dry. Respiratory: Airway is patent Respiratory effort is even, unlabored, Respiratory pattern is regular, symmetrical. GI: Abdomen is flat, non-distended, Bowel sounds present X 4 quads. Reports lower abdominal pain, diarrhea, nausea. : No signs and/or symptoms were reported regarding the genitourinary system. Derm: Skin is pink, warm \T\ dry. Musculoskeletal: Circulation, motion, and sensation intact. Range of motion: intact in all extremities. Historical: - Allergies: 00:55 No Known Allergies; ha1 - Home Meds: 00:55 Novolog U-100 Insulin aspart Sub-Q [Active]; ha1 - PMHx: 00:55 Hypercholesterolemia; IDDM; ha1 - Immunization history:: Adult Immunizations unknown. - Social history:: Smoking status: unknown. Screenin:55 Abuse screen: Denies threats or abuse. Denies injuries from another. Nutritional ha1 screening: No deficits noted. Tuberculosis screening: No symptoms or risk factors identified. Assessment: 00:55 Reassessment: see triage assessment. ha1 01:50 Reassessment: Patient and/or family updated on plan of care and expected duration. Pain ha1 level reassessed. Patient is alert, oriented x 3, equal unlabored respirations, skin warm/dry/pink. 02:50 Reassessment: Patient and/or family updated on plan of care and expected duration. Pain ha1 level reassessed. Patient is alert, oriented x 3, equal unlabored respirations, skin warm/dry/pink. 03:19 Reassessment: Patient and/or family updated on plan of care and expected duration. Pain ha1 level reassessed. Patient is alert, oriented x 3, equal unlabored respirations, skin warm/dry/pink. Patient states feeling better. Patient states symptoms have improved. Vital Signs: 01:01 BP 125 / 85; Pulse 80; Resp 18; Temp 98.4(O); Pulse Ox 100% on R/A; Weight 89.81 kg; oe Height 5 ft. 11 in. ; Pain 5/10; 02:00 BP 112 / 77; Pulse 78; Resp 18 S; Pulse Ox 99% ; ha1 03:00 BP 114 / 74; Pulse 66; Resp 18 S; Pulse Ox 100% on R/A; ha1 01:01 Body Mass Index 27.62 (89.81 kg, 180.34 cm) oe 01:01 Pain Scale: Adult oe ED Course: 00:49 Patient arrived in ED. ja2 00:55 Arm band placed on right wrist. ha1 00:55 Patient has correct armband on for positive identification. Bed in low position. Call ha1 light in reach. Side rails up X 1. 00:56 Devin Cuadra PA is PHCP. cp 00:56 Devin Castro MD is Attending Physician. cp 01:27 Inserted saline lock: 20 gauge in right antecubital area, using aseptic technique. as7 Blood collected. 01:27 COVID-19/FLU A+B Sent. 7 01:28 CBC with Diff Sent. 01:28 CMP Sent. 01:28 Lipase Sent. 01:28 Urine Microscopic Only Sent. 7 02:00 COVID-19/FLU A+B Sent. as7 02:06 Cat Bal, RN is Primary Nurse. ha1 02:52 CT Abd/Pelvis - IV Contrast Only In Process Unspecified. EDMS 03:02 Triage completed. ha1 03:35 No provider procedures requiring assistance completed. IV discontinued, intact, ha1 bleeding controlled, No redness/swelling at site. Pressure dressing applied. Administered Medications: 02:20 Drug: NS 0.9% IV 1000 ml Route: IV; Rate: 1 bolus; Site: right antecubital; ha1 03:35 Follow up: Response: No adverse reaction; IV Status: Completed infusion; IV Intake: ha1 1000ml 02:20 Drug: Ondansetron IVP 4 mg Route: IVP; Site: right antecubital; ha1 02:50 Follow up: Response: No adverse reaction ha1 02:28 Drug: Famotidine IVP 20 mg Route: IVP; Site: right antecubital; ha1 02:50 Follow up: Response: No adverse reaction ha1 02:50 Drug: Dicyclomine IM 20 mg Route: IM; Site: right deltoid; ha1 03:37 Follow up: Response: No adverse reaction ha1 Medication: 03:36 VIS not applicable for this client. ha1 Intake: 03:35 IV: 1000ml; Total: 1000ml. ha1 Outcome: 03:23 Discharge ordered by . karuna 03:35 Discharged to home ambulatory. ha1 03:35 Condition: stable 03:35 Discharge instructions given to patient, Instructed on discharge instructions, follow up and referral plans. medication usage, Demonstrated understanding of instructions, follow-up care, medications, Prescriptions given X 3. 03:37 Patient left the ED. ha1 Signatures: Dispatcher [employer] Devin Nunez MD MD cha Page, Corey, PA PA cp Espinosa, [place] oe Alexander, [facility] Cat Bal RN RN ha1 Philly Schafer
== END 2022-10-28 03:37 | disposition home or self-care (01) ==
LOC: ER 00:46
DX: R10.84 Generalized abdominal pain (principal); R11.2 Nausea with vomiting, unspecified; Z20.822 Contact with and (suspected) exposure to COVID-19
CPT/HCPCS: 0240U; 36415; 74177; 80053; 81003; 81015; 83690; 85025; 96361; 96372; 96374; 96375; 99284; J0500; J2405; J7030; Q9967

== ENCOUNTER 2023-01-25 16:10 | Emergency (ER) | payer SELFPAY ==
--- OUTSIDE RECORDS SUMMARY | 2023-01-25 16:15 | XMS REPORT | Continuity of Care Document ---
:1990 Author Organization [facility] t Address [address] [facility] [address] [place] [address] Care Team Providers Name Role Phone Bina Ochoa Primary Care Physician [phone] Problems This patient has no known problems. [...] Goal Plan of Care Note [code = 67928-0] Goal Plan of Care Note [code = 32355-7] Goal Plan of Care Note [code = 48552-3] Goal Plan of Care Note [code = 67388-8] Goal Plan of Care Note [code = 32815-9] Goal Plan of Care Note [code = 50254-5] Goal Plan of Care Note [code = 48446-9] Goal Plan of Care Note [code = 30914-5] Goal Plan of Care Note [code = 27417-7] Goal Plan of Care Note [code = 77963-8] Goal Plan of Care Note [code = 11938-7] Goal Plan of Care Note [code = 06572-3] Goal Plan of Care Note [code = 76711-9] Goal Plan of Care Note [code = 16276-9] Goal Plan of Care Note [code = 66660-7] Goal Plan of Care Note [code = 79992-0] Goal Plan of Care Note [code = 67849-1] Goal Plan of Care Note [code = 19624-4] Goal Plan of Care Note [code = 78852-6] Goal Plan of Care Note [code = 86709-5] Goal Plan of Care Note [code = 68832-6] Goal Plan of Care Note [code = 06133-1] Goal Plan of Care Note [code = 34044-4] Goal Plan of Care Note [code = 60916-4] Goal Plan of Care Note [code = 87238-9] Goal Plan of Care Note [code = 98015-8] Goal Plan of Care Note [code = 33021-1] Goal Plan of Care Note [code = 00226-3] Goal Plan of Care Note [code = 48283-1] Goal Plan of Care Note [code = 12434-6] Goal Plan of Care Note [code = 73967-9] Goal Plan of Care Note [code = 61914-4] Goal Plan of Care Note [code = 46686-3] Goal Plan of Care Note [code = 94933-1] Goal Plan of Care Note [code = 09533-5] Goal Plan of Care Note [code = 54815-5] Goal Plan of Care Note [code = 51194-2] Goal Plan of Care Note [code = 07256-6] Goal Plan of Care Note [code = 58561-7] Goal Plan of Care Note [code = 09671-0] Goal Plan of Care Note [code = 00297-8] Goal Plan of Care Note [code = 87248-5] Goal Plan of Care Note [code = 45578-6] Goal Plan of Care Note [code = 00854-3] Goal Plan of Care Note [code = 79213-9] Goal Plan of Care Note [code = 12622-0] Goal Plan of Care Note [code = 84843-3] Goal Plan of Care Note [code = 31887-5] Goal Plan of Care Note [code = 46128-9] Goal Plan of Care Note [code = 23490-5] Goal Plan of Care Note [code = 76159-1] Goal Plan of Care Note [code = 70512-6] Goal Plan of Care Note [code = 89135-5] Encounters Start End Encounter Admission Attending Care Care Encounter Source Date/Time Date/Time Type Type Clinicians Facility Department ID 2023-01-08 2023-01-08 Outpatient SFA SFA [id number] Johann 11:43:52 11:43:52 [id number] F [place] 2022-12-20 2022-12-20 Outpatient SFA SFA [id number]- Johann 11:32:16 11:32:16 [id number] F [place] 2022-12-19 2022-12-19 Outpatient SFA SFA [id number] Johann 13:34:58 13:34:58 [id number] F [place] 2022-11-07 2022-11-07 Outpatient SFA SFA [id number]- Johann 09:41:09 09:41:09 [id number] F [place] 2022-10-26 2022-10-26 Outpatient SFA SFA [id number]- Johann 10:43:17 10:43:17 [id number] F [place] 2022-08-02 2022-08-02 Outpatient SFA SFA [id number]- Johann 13:36:36 13:36:36 [id number] F [place] 2022-08-02 2022-08-02 Outpatient [id number] 00:00:00 00:00:00 Visit g5nf-54at 3eb-45ef-a -x7ku-1w6 6bc-8u136b 25nwm9777 uz3724 2022-06-27 2022-06-27 Outpatient SFA SFA [id number]- 202 Johann 14:28:49 14:28:49 [id number] F [place] 2022-06-27 2022-06-27 Outpatient [id number]- [id number] o67v9a-m 00:00:00 00:00:00 Visit pp11-28og v38-39kw-k -by95-rl4 a81-on235g 59nw73gso d31cbc 2022-05-30 2022-05-30 Outpatient [id number]- [id number] [id number]-r 00:00:00 00:00:00 Visit q032-1396 467-4492-8 -56o4-8vp 2i9-6qgaa9 jg51v9jy7 6f0de3 2022-05-24 2022-05-24 Outpatient SFA SFA [id number]- 202 Johann 13:25:23 13:25:23 [id number] F [place] 2022-05-24 2022-05-24 Outpatient [id number] 00:00:00 00:00:00 Visit 3b93-9q89 n04-2w70-2 -8616-bb7 616-bb7bb5 ii51rm441 6vu270 2022-05-17 2022-05-17 Outpatient m3e9tl63- [id number] r3qz77-9 00:00:00 00:00:00 Visit 96c9-1gv0 3c0-7ui6-3 -1i8k-qbn h4y-gmbd30 u63eftpbr ecbfaa 2022-04-26 2022-04-26 Outpatient [id number]- [id number] 0c 980v9a-o 00:00:00 00:00:00 Visit t51i-54xv 91d-41dc-9 -9142-545 142-545c34 q35cf9125 hj9749 Results Test Description Test Time Test Comments Results Result Comments Source HEMOGLOBIN A1c 2022-10-27 02:13:26 Test Item Value Reference Range Interpretation Comme nts HEMOGLOBIN A1c (test 9.6 % 4.2-5.6 H [employer] GUIDELINES FOR code = 21754) HGB A1C: PREDI ABETES/INCREASED RISK . . [...] ALTERN ATE TESTING OR LABORATORY CONSULTATION. * [facility] has important pathology staff changes e ffective 10/18/2022. New pathology staff will provide uninterrupted, excellent patie nt care and clinical consultation. S ee URL: [email or web address]. UNLESS OTHERWISE INDIC ATED, ALL TESTING PERFORMED AT [facility] [employer] [address] [place] [address] [employer] WRITER: ALEX ELIAS M.D. [place] NUMBER [id number] [place]. [id number] CULTURE, [id number] 16:24:13SPECIMEN NUMBER: [id number] CULTURE, URINE SPECIMEN NUMBER: [id number] SPECIMEN COMMENT: URINE SOURCE: URINE REPORT STATUS: FINAL ISOLATE NUMBER 1: ORGANISM: 05/26/2022 >100,000 CFU/ML GRAM NEGATIVE B ACILLI IDENTIFICATION: 05/27/2022 PROTEUS MIRABILIS P. MIRABILIS AMOXICILLIN/CA SENSITIVE <=8/4AMPICILLIN RESISTANT >16CEFAZOLIN SENSITIVE 4CEFTRIAXONE SENSITIVE <=1CIPROFLOXACIN SENSITIVE <=1LEVOFLOXACIN SENSITIVE <=2NITROFURANTOIN RESISTANT >64PIP/TAZOBAC SENSITIVE <=16TETRACYCLINE RESISTANT >8TOBRAMYCIN RESISTANT >8TRIMETH/SULFA RESISTANT >2/38 NOTE: NUMBERS DISPLAYED REPRESENT MINIMUM INHIBITORY CONCENTRATION (ALINE) WHICH IS EXPRESSED IN MCG/ML.CULTURE, URINE 2022-05-27 00:00:00 Test Item Value Reference Range Interpretation Comments CULTURE, URINE (test SPECIMEN NUMBER: code = 89387) [id number] CULTURE, [id number] 00:00:00 Test Item Value Reference Range Interpretation Comments CULTURE, URINE (test SPECIMEN NUMBER: code = 25948) [id number] CULTURE, [id number] 00:00:00 Test Item Value Reference Range Interpretation Comments CULTURE, URINE (test SPECIMEN NUMBER: code = 74989) [id number] CULTURE, [id number] 00:00:00 Test Item Value Reference Range Interpretation Comments CULTURE, URINE (test SPECIMEN NUMBER: code = 42007) [id number] CULTURE, [id number] 00:00:00 Test Item Value Reference Range Interpretation Comments CULTURE, URINE (test SPECIMEN NUMBER: code = 92157) [id number] CULTURE, [id number] 00:00:00 Test Item Value Reference Range Interpretation Comments CULTURE, URINE (test SPECIMEN NUMBER: code = 75232) [id number] CULTURE, [id number] 00:00:00 Test Item Value Reference Range Interpretation Comments CULTURE, URINE (test SPECIMEN NUMBER: code = 26611) [id number] CULTURE, [id number] 00:00:00 Test Item Value Reference Range Interpretation Comments CULTURE, URINE (test SPECIMEN NUMBER: code = 49899) [id number] CT/NG, NAAT, [id number] 19:07:28 Test Item Value Reference Range Interpretation Comments GONORRHEA, NAAT NEGATIVE NEGATIVE IMPORTA NT NOTICE: SEE (test code = [place] [address]) [email or web address] Note: Assay methodology is nucleic acid amplification b y thermal cutting tracer machine operator mediated amplification ( TMA) utilizing the A ptima Combo 2 Assay. CHLAMYDIA, NAAT NEGATIVE NEGATIVE IMPORTA NT NOTICE: SEE (test code = [place] [address]) [email or web address] Note: Assay methodology is nucleic acid amplification b y thermal cutting tracer machine operator mediated amplification ( TMA) utilizing the A ptima Combo 2 Assay. UNLESS OTHERWISE INDICATED, ALL TESTING PERFORMED [facility] PATHOLOGY [facility]. [address] [place] [id number] [place] [address] DIRECTOR: KUSHAL AGUSTIN M.D. CLIA NUMBER [id number] CAP ACCREDITATION N O. [id number] CT/NG, TMA, [id number] 00:00:00 Test Item Value Reference Range Interpretation Comments GONORRHEA, NAAT (test code = 35082) NEGATIVE CHLAMYDIA, NAAT (test code = 24548) NEGATIVE CT/NG, TMA, [id number] 00:00:00 Test Item Value Reference Range Interpretation Comments GONORRHEA, NAAT (test code = 28334) NEGATIVE CHLAMYDIA, NAAT (test code = 76723) NEGATIVE CT/NG, TMA, [id number] 00:00:00 Test Item Value Reference Range Interpretation Comments GONORRHEA, NAAT (test code = 93177) NEGATIVE CHLAMYDIA, NAAT (test code = 28395) NEGATIVE CT/NG, TMA, [id number] 00:00:00 Test Item Value Reference Range Interpretation Comments GONORRHEA, NAAT (test code = 35129) NEGATIVE CHLAMYDIA, NAAT (test code = 23978) NEGATIVE CT/NG, TMA, [id number] 00:00:00 Test Item Value Reference Range Interpretation Comments GONORRHEA, NAAT (test code = 56122) NEGATIVE CHLAMYDIA, NAAT (test code = 85934) NEGATIVE CT/NG, TMA, [id number] 00:00:00 Test Item Value Reference Range Interpretation Comments GONORRHEA, NAAT (test code = 27243) NEGATIVE CHLAMYDIA, NAAT (test code = 14258) NEGATIVE CT/NG, TMA, [id number] 00:00:00 Test Item Value Reference Range Interpretation Comments GONORRHEA, NAAT (test code = 76508) NEGATIVE CHLAMYDIA, NAAT (test code = 55173) NEGATIVE CT/NG, TMA, [id number] 00:00:00 Test Item Value Reference Range Interpretation Comments GONORRHEA, NAAT (test code = 57428) NEGATIVE CHLAMYDIA, NAAT (test code = 60556) NEGATIVE H. PYLORI (BREATH)2022-05-19 15:05:57 Test Item Value Reference Range Interpretation Comments H. PYLORI (BREATH) (test code = NEGATIVE NEGATIVE 96187) [id number] 04:16:31 Test Item Value Reference Range Interpretation Comments AMYLASE (test code = 2205) 37 U/L 28-100 [id number] 04:16:31 Test Item Value Reference Range Interpretation Comments LIPASE (test code = 18 U/L 13-60 UNLESS OTHERWISE 2058) INDICATED, ALL TESTING PERFORMED [facility] PATHOLOGY [facility] [address] [place] [phone] [place] [address] DIRECTOR: KUSHAL AGUSTIN M.D. CLIA NUMBER [id number] CAP ACCREDITATION N O. [id number] H. PYLORI (BREATH)2022-05-19 00:00:00 Test Item Value Reference Range Interpretation Comments H. PYLORI (BREATH) (test code = NEGATIVE 77928) [id number] 00:00:00 Test Item Value Reference Range Interpretation Comments AMYLASE (test code = 2205) 37 U/L [id number] 00:00:00 Test Item Value Reference Range Interpretation Comments AMYLASE (test code = 2205) 37 U/L [id number] 00:00:00 Test Item Value Reference Range Interpretation Comments LIPASE (test code = 2057) 18 U/L [id number] 00:00:00 Test Item Value Reference Range Interpretation Comments LIPASE (test code = 2057) 18 U/L [id number] 00:00:00 Test Item Value Reference Range Interpretation Comments LIPASE (test code = 2057) 18 U/L H. PYLORI (BREATH)2022-05-19 00:00:00 Test Item Value Reference Range Interpretation Comments H. PYLORI (BREATH) (test code = NEGATIVE 79150) H. PYLORI (BREATH)2022-05-19 00:00:00 Test Item Value Reference Range Interpretation Comments H. PYLORI (BREATH) (test code = NEGATIVE 55711) [id number] 00:00:00 Test Item Value Reference Range Interpretation Comments AMYLASE (test code = 2204) 37 U/L [id number] 00:00:00 Test Item Value Reference Range Interpretation Comments AMYLASE (test code = 2204) 37 U/L [id number] 00:00:00 Test Item Value Reference Range Interpretation Comments LIPASE (test code = 2057) 18 U/L [id number] 00:00:00 Test Item Value Reference Range Interpretation Comments LIPASE (test code = 2057) 18 U/L [id number] 00:00:00 Test Item Value Reference Range Interpretation Comments LIPASE (test code = 2057) 18 U/L H. PYLORI (BREATH)2022-05-19 00:00:00 Test Item Value Reference Range Interpretation Comments H. PYLORI (BREATH) (test code = NEGATIVE 97812) H. PYLORI (BREATH)2022-05-19 00:00:00 Test Item Value Reference Range Interpretation Comments H. PYLORI (BREATH) (test code = NEGATIVE 34961) [id number] 00:00:00 Test Item Value Reference Range Interpretation Comments AMYLASE (test code = 2205) 37 U/L [id number] 00:00:00 Test Item Value Reference Range Interpretation Comments AMYLASE (test code = 2205) 37 U/L [id number] 00:00:00 Test Item Value Reference Range Interpretation Comments LIPASE (test code = 2057) 18 U/L [id number] 00:00:00 Test Item Value Reference Range Interpretation Comments LIPASE (test code = 2057) 18 U/L [id number] 00:00:00 Test Item Value Reference Range Interpretation Comments LIPASE (test code = 2057) 18 U/L H. PYLORI (BREATH)2022-05-19 00:00:00 Test Item Value Reference Range Interpretation Comments H. PYLORI (BREATH) (test code = NEGATIVE 18663) H. PYLORI (BREATH)2022-05-19 00:00:00 Test Item Value Reference Range Interpretation Comments H. PYLORI (BREATH) (test code = NEGATIVE 37431) [id number] 00:00:00 Test Item Value Reference Range Interpretation Comments AMYLASE (test code = 2204) 37 U/L [id number] 00:00:00 Test Item Value Reference Range Interpretation Comments AMYLASE (test code = 2204) 37 U/L [id number] 00:00:00 Test Item Value Reference Range Interpretation Comments LIPASE (test code = 2057) 18 U/L [id number] 00:00:00 Test Item Value Reference Range Interpretation Comments LIPASE (test code = 2057) 18 U/L [id number] 00:00:00 Test Item Value Reference Range Interpretation Comments LIPASE (test code = 2057) 18 U/L H. PYLORI (BREATH)2022-05-19 00:00:00 Test Item Value Reference Range Interpretation Comments H. PYLORI (BREATH) (test code = NEGATIVE 69206) HEMOGLOBIN [id number] 23:37:11 Test Item Value Reference Range Interpretation Comments HEMOGLOBIN A1c (test 10.4 % 4.2-5.6 H [employer] DIAB[employer]ES code = 62976) ASSOCIATION IDELINES FOR HGB A1C: PREDIABETES/INC REASED [...] INDICATED, ALL TESTING PER FORMED [facility] [place]. [address] [place] [address] LABORATORY DIRE CTOR: Lelo SOLOMON. CLIA NUMBER [id number] CAP ACCREDITATION N O. [id number] COMPREHENSIVE METABOLIC [id number] 06:29:07 Test Item Value Reference Range Interpretation Comments GLUCOSE (test code = 264 MG/DL 70-99 H 2216) BUN (test code = 9 MG/DL 6-20 2207) CREATININE (test 0.68 MG/DL 0.80-1.40 L code = 2214) eGFR (2020 CKD-EPI) 127 >60 (test code = 30975) ML/MIN/1.73 CALC BUN/CREAT (test 13 RATIO 6-28 code = 2235) SODIUM (test code = 143 MEQ/L 927-073 0681) POTASSIUM (test code 4.6 MEQ/L 3.5-5.4 = 2227) CHLORIDE (test code 105 MEQ/L 95-107 = 221) CARBON DIOXIDE (test 24 MEQ/L 19-31 code [...] code = 20 U/L 5-50 2218) LIPID [id number] 06:29:07 Test Item Value Reference Range Interpretation [...] MOREINFORMATION , SEE CLIENT ANNOUNCE MENT AT [email or web address] RISK RATIO LDL/HDL 2.95 RATIO <3.55 (test code = 2238) COMPREHENSIVE METABOLIC [id number] 00:00:00 Test Item Value Reference Range Interpretation Comments GLUCOSE (test code = 2217) 264 MG/DL BUN (test code = 2208) 9 MG/DL CREATININE (test code = 2214) 0.68 MG/DL eGFR (2020 CKD-EPI) (test 127 ML/MIN/1.73 code = 73250) CALC BUN/CREAT (test code = 13 RATIO [...] (test code = 2219) 20 U/L LIPID [id number] 00:00:00 Test Item Value Reference Range Interpretation Comments CHOLESTEROL (test code = 2210) 172 MG/DL TRIGLYCERIDES (test code = 2232) 84 MG/DL HDL CHOLESTEROL (test code = 2220) 39 MG/DL CALC LDL CHOL (test code = 2237) 115 MG/DL RISK RATIO LDL/HDL (test code = 2.95 RATIO 2238) LIPID [id number] 00:00:00 Test Item Value Reference Range Interpretation Comments CHOLESTEROL (test code = 2210) 172 MG/DL TRIGLYCERIDES (test code = 2232) 84 MG/DL HDL CHOLESTEROL (test code = 2220) 39 MG/DL CALC LDL CHOL (test code = 2237) 115 MG/DL RISK RATIO LDL/HDL (test code = 2.95 RATIO 2238) HEMOGLOBIN [id number] 00:00:00 Test Item Value Reference Range Interpretation Comments HEMOGLOBIN A1c (test code = 43014) 10.4 % HEMOGLOBIN [id number] 00:00:00 Test Item Value Reference Range Interpretation Comments HEMOGLOBIN A1c (test code = 32075) 10.4 % HEMOGLOBIN [id number] 00:00:00 Test Item Value Reference Range Interpretation Comments HEMOGLOBIN A1c (test code = 80311) 10.4 % COMPREHENSIVE METABOLIC [id number] 00:00:00 Test Item Value Reference Range Interpretation Comments GLUCOSE (test code = 2217) 264 MG/DL BUN (test code = 2208) 9 MG/DL CREATININE (test code = 2214) 0.68 MG/DL eGFR (2020 CKD-EPI) (test 127 ML/MIN/1.73 code = 95501) CALC BUN/CREAT (test code = 13 RATIO [...] code = 2219) 20 U/L COMPREHENSIVE METABOLIC [id number] 00:00:00 Test Item Value Reference Range Interpretation Comments GLUCOSE (test code = 2217) 264 MG/DL BUN (test code = 2208) 9 MG/DL CREATININE (test code = 2214) 0.68 MG/DL eGFR (2020 CKD-EPI) (test 127 ML/MIN/1.73 code = 52444) CALC BUN/CREAT (test code = 13 RATIO [...] (test code = 2219) 20 U/L LIPID [id number] 00:00:00 Test Item Value Reference Range Interpretation Comments CHOLESTEROL (test code = 2210) 172 MG/DL TRIGLYCERIDES (test code = 2232) 84 MG/DL HDL CHOLESTEROL (test code = 2220) 39 MG/DL CALC LDL CHOL (test code = 2237) 115 MG/DL RISK RATIO LDL/HDL (test code = 2.95 RATIO 2238) LIPID [id number] 00:00:00 Test Item Value Reference Range Interpretation Comments CHOLESTEROL (test code = 2210) 172 MG/DL TRIGLYCERIDES (test code = 2232) 84 MG/DL HDL CHOLESTEROL (test code = 2220) 39 MG/DL CALC LDL CHOL (test code = 2237) 115 MG/DL RISK RATIO LDL/HDL (test code = 2.95 RATIO 2238) HEMOGLOBIN [id number] 00:00:00 Test Item Value Reference Range Interpretation Comments HEMOGLOBIN A1c (test code = 95214) 10.4 % HEMOGLOBIN [id number] 00:00:00 Test Item Value Reference Range Interpretation Comments HEMOGLOBIN A1c (test code = 13338) 10.4 % HEMOGLOBIN [id number] 00:00:00 Test Item Value Reference Range Interpretation Comments HEMOGLOBIN A1c (test code = 74234) 10.4 % COMPREHENSIVE METABOLIC [id number] 00:00:00 Test Item Value Reference Range Interpretation Comments GLUCOSE (test code = 2217) 264 MG/DL BUN (test code = 2208) 9 MG/DL CREATININE (test code = 2214) 0.68 MG/DL eGFR (2020 CKD-EPI) (test 127 ML/MIN/1.73 code = 63329) CALC BUN/CREAT (test code = 13 RATIO [...] code = 2219) 20 U/L COMPREHENSIVE METABOLIC [id number] 00:00:00 Test Item Value Reference Range Interpretation Comments GLUCOSE (test code = 2217) 264 MG/DL BUN (test code = 2208) 9 MG/DL CREATININE (test code = 2214) 0.68 MG/DL eGFR (2020 CKD-EPI) (test 127 ML/MIN/1.73 code = 06649) CALC BUN/CREAT (test code = 13 RATIO [...] (test code = 2219) 20 U/L LIPID [id number] 00:00:00 Test Item Value Reference Range Interpretation Comments CHOLESTEROL (test code = 2210) 172 MG/DL TRIGLYCERIDES (test code = 2232) 84 MG/DL HDL CHOLESTEROL (test code = 2220) 39 MG/DL CALC LDL CHOL (test code = 2237) 115 MG/DL RISK RATIO LDL/HDL (test code = 2.95 RATIO 2238) LIPID [id number] 00:00:00 Test Item Value Reference Range Interpretation Comments CHOLESTEROL (test code = 2210) 172 MG/DL TRIGLYCERIDES (test code = 2232) 84 MG/DL HDL CHOLESTEROL (test code = 2220) 39 MG/DL CALC LDL CHOL (test code = 2237) 115 MG/DL RISK RATIO LDL/HDL (test code = 2.95 RATIO 2238) HEMOGLOBIN [id number] 00:00:00 Test Item Value Reference Range Interpretation Comments HEMOGLOBIN A1c (test code = 11565) 10.4 % HEMOGLOBIN [id number] 00:00:00 Test Item Value Reference Range Interpretation Comments HEMOGLOBIN A1c (test code = 29363) 10.4 % HEMOGLOBIN [id number] 00:00:00 Test Item Value Reference Range Interpretation Comments HEMOGLOBIN A1c (test code = 13061) 10.4 % COMPREHENSIVE METABOLIC [id number] 00:00:00 Test Item Value Reference Range Interpretation Comments GLUCOSE (test code = 2217) 264 MG/DL BUN (test code = 2208) 9 MG/DL CREATININE (test code = 2214) 0.68 MG/DL eGFR (2020 CKD-EPI) (test 127 ML/MIN/1.73 code = 42031) CALC BUN/CREAT (test code = 13 RATIO [...] code = 2219) 20 U/L COMPREHENSIVE METABOLIC [id number] 00:00:00 Test Item Value Reference Range Interpretation Comments GLUCOSE (test code = 2217) 264 MG/DL BUN (test code = 2208) 9 MG/DL CREATININE (test code = 2214) 0.68 MG/DL eGFR (2020 CKD-EPI) (test 127 ML/MIN/1.73 code = 31744) CALC BUN/CREAT (test code = 13 RATIO [...] (test code = 2219) 20 U/L LIPID [id number] 00:00:00 Test Item Value Reference Range Interpretation Comments CHOLESTEROL (test code = 2210) 172 MG/DL TRIGLYCERIDES (test code = 2232) 84 MG/DL HDL CHOLESTEROL (test code = 2220) 39 MG/DL CALC LDL CHOL (test code = 2237) 115 MG/DL RISK RATIO LDL/HDL (test code = 2.95 RATIO 2238) LIPID [id number] 00:00:00 Test Item Value Reference Range Interpretation Comments CHOLESTEROL (test code = 2210) 172 MG/DL TRIGLYCERIDES (test code = 2232) 84 MG/DL HDL CHOLESTEROL (test code = 2220) 39 MG/DL CALC LDL CHOL (test code = 2237) 115 MG/DL RISK RATIO LDL/HDL (test code = 2.95 RATIO 2238) HEMOGLOBIN [id number] 00:00:00 Test Item Value Reference Range Interpretation Comments HEMOGLOBIN A1c (test code = 48073) 10.4 % HEMOGLOBIN [id number] 00:00:00 Test Item Value Reference Range Interpretation Comments HEMOGLOBIN A1c (test code = 87058) 10.4 % HEMOGLOBIN [id number] 00:00:00 Test Item Value Reference Range Interpretation Comments HEMOGLOBIN A1c (test code = 01527) 10.4 % COMPREHENSIVE METABOLIC [id number] 00:00:00 Test Item Value Reference Range Interpretation Comments GLUCOSE (test code = 2217) 264 MG/DL BUN (test code = 2208) 9 MG/DL CREATININE (test code = 2214) 0.68 MG/DL eGFR (2020 CKD-EPI) (test 127 ML/MIN/1.73 code = 71258) CALC BUN/CREAT (test code = 13 RATIO [...] code = 2219) 20 U/L COMPREHENSIVE METABOLIC [id number] 00:00:00 Test Item Value Reference Range Interpretation Comments GLUCOSE (test code = 2217) 264 MG/DL BUN (test code = 2208) 9 MG/DL CREATININE (test code = 2214) 0.68 MG/DL eGFR (2020 CKD-EPI) (test 127 ML/MIN/1.73 code = 72920) CALC BUN/CREAT (test code = 13 RATIO [...] (test code = 2219) 20 U/L LIPID [id number] 00:00:00 Test Item Value Reference Range Interpretation Comments CHOLESTEROL (test code = 2210) 172 MG/DL TRIGLYCERIDES (test code = 2232) 84 MG/DL HDL CHOLESTEROL (test code = 2220) 39 MG/DL CALC LDL CHOL (test code = 2237) 115 MG/DL RISK RATIO LDL/HDL (test code = 2.95 RATIO 2238) LIPID [id number] 00:00:00 Test Item Value Reference Range Interpretation Comments CHOLESTEROL (test code = 2210) 172 MG/DL TRIGLYCERIDES (test code = 2232) 84 MG/DL HDL CHOLESTEROL (test code = 2220) 39 MG/DL CALC LDL CHOL (test code = 2237) 115 MG/DL RISK RATIO LDL/HDL (test code = 2.95 RATIO 2238) HEMOGLOBIN [id number] 00:00:00 Test Item Value Reference Range Interpretation Comments HEMOGLOBIN A1c (test code = 88476) 10.4 % HEMOGLOBIN [id number] 00:00:00 Test Item Value Reference Range Interpretation Comments HEMOGLOBIN A1c (test code = 67313) 10.4 % HEMOGLOBIN [id number] 00:00:00 Test Item Value Reference Range Interpretation Comments HEMOGLOBIN A1c (test code = 13111) 10.4 % COMPREHENSIVE METABOLIC [id number] 00:00:00 Test Item Value Reference Range Interpretation Comments GLUCOSE (test code = 2217) 264 MG/DL BUN (test code = 2208) 9 MG/DL CREATININE (test code = 2214) 0.68 MG/DL eGFR (2020 CKD-EPI) (test 127 ML/MIN/1.73 code = 79582) CALC BUN/CREAT (test code = 13 RATIO [...]
[2023-01-25] MEDS ORDERED: ONDANSETRON 4 MG/2 ML VIAL ONE (16:48)
[2023-01-25] MEDS ORDERED: MORPHINE 4 MG/ML SYR ONE (16:48)
[2023-01-25 16:52] LABS: Absolute Lymphocytes (CBC) 1.7 K/uL (0.7-4.9); Hematocrit 39.8 % (39.6-49.0); MCV 87.8 fL (80-100); RBC Red Blood Cell Count 4.53 M/uL (4.33-5.43)
--- NOTE | 2023-01-25 16:56 | RAD REPORT ---
EXAM DESCRIPTION: RAD - Chest Single View - 01/25/2023 4:51 pm CLINICAL HISTORY: CHEST PAIN Chest pain. COMPARISON: No comparisons FINDINGS: Portable technique limits examination quality. The lungs are grossly clear. The heart is normal in size. No displaced fractures. IMPRESSION: No acute intrathoracic process suspected.
[2023-01-25 17:15] LABS: Potassium 3.1 mEq/L (3.5-5.1); Troponin High Sensitivity 7.2 pg/mL (<58.9)
--- NOTE | 2023-01-25 17:35 | RAD REPORT ---
EXAM DESCRIPTION: CT - Angio Aorta For Dissection - 01/25/2023 5:27 pm CLINICAL HISTORY: Chest pain radiating to the back. chest pain, abdominal pain COMPARISON: No comparisons TECHNIQUE: CT angiography of the aorta was performed with MIPs. All CT scans are performed using dose optimization technique as appropriate and may include automated exposure control or mA/KV adjustment according to patient size. FINDINGS: A left aortic arch is present with normal branching pattern of the great vessels.No acute aortic finding is seen such as aneurysm, penetrating ulcer or dissection. The celiac axis, SMA, RACHEL and renal arteries are patent. No evidence of pulmonary embolism. The lungs are clear. The liver demonstrates no focal mass or biliary dilatation.The spleen, pancreas, adrenal glands and k idneys are within normal limits for arterial phase imaging. No bowel obstruction, free fluid or abscess.No pathologic enlarged lymphadenopathy identified. No fracture or worrisome bone lesion seen. IMPRESSION: No acute aortic finding is demonstrated.
--- NOTE | 2023-01-25 20:15 | ER ---
Nurse's Notes [facility] Name: Altaf Perez Age: 32 yrs Sex: Male : 1990 Arrival Date: 01/25/2023 Time: 16:10 Bed 13 Private MD: Diagnosis: Chest pain, unspecified Presentation: 01/25 16:17 Chief complaint: Patient states: Nausea, not feeling well, no appetite, L CP that ll1 radiated into L side of back. No fever or cough. Coronavirus screen: Vaccine status: Patient reports receiving the 2nd dose of the covid vaccine. Client denies travel out of the [place] in the last 14 days. difficulty breathing, fatigue, nausea. Ebola Screen: Patient denies travel to an Ebola-affected area in the 21 days before illness onset. Initial Sepsis Screen: Does the patient meet any 2 criteria? No. Patient's initial sepsis screen is negative. Does the patient have a suspected source of infection? No. Patient's initial sepsis screen is negative. Risk Assessment: Do you want to hurt yourself or someone else? Patient reports no desire to harm self or others. Onset of symptoms was January 24, 2023. 16:17 Method Of Arrival: Ambulatory ll1 16:17 Acuity: CHRISTIANA 3 ll1 Triage Assessment: 17:51 General: Appears uncomfortable, Behavior is anxious. Respiratory: Airway is patent. GI: db Reports upper abdominal pain. Historical: - Allergies: 16:20 No Known Allergies; ll1 - PMHx: 16:20 IDDM; Hypercholesterolemia; ll1 - PSHx: 16:20 None; ll1 - Immunization history:: Adult Immunizations up to date, Client reports receiving the 2nd dose of the Covid vaccine. - Social history:: Smoking status: Reported history of juuling and/or vaping. Screenin:37 [facility] ED Fall Risk Assessment (Adult) History of falling in the last 3 months, db including since admission No falls in past 3 months (0 pts) Confusion or Disorientation No (0 pts) Intoxicated or Sedated No (0 pts) Impaired Gait No (0 pts) Mobility Assist Device Used No (0 pt) Altered Elimination No (0 pt) Score/Fall Risk Level 0 - 2 = Low Risk Oriented to surroundings, Maintained a safe environment. Abuse screen: Denies threats or abuse. Denies injuries from another. Nutritional screening: No deficits noted. Tuberculosis screening: No symptoms or risk factors identified. Assessment: 16:35 Reassessment: Patient appears in no apparent distress at this time. Patient and/or db family updated on plan of care and expected duration. Pain level reassessed. Patient is alert, oriented x 3, equal unlabored respirations, skin warm/dry/pink. radiology at bedside. patient complains of increased difficulty breathing. General: Appears in no apparent distress. comfortable, Behavior is calm, cooperative. Pain: Complains of pain in back and chest. Neuro: Level of Consciousness is awake, alert, obeys commands, Oriented to person, place, time, situation. Respiratory: Airway is patent Respiratory effort is even, labored, Respiratory pattern is regular, symmetrical. GI: Abdomen is flat, non-distended. 16:46 Respiratory: Breath sounds are clear bilaterally. db 17:52 Reassessment: Patient appears in no apparent distress at this time. Patient and/or db family updated on plan of care and expected duration. Pain level reassessed. Patient is alert, oriented x 3, equal unlabored respirations, skin warm/dry/pink. Patient states feeling better. Patient states symptoms have improved. 18:28 Reassessment: Patient appears in no apparent distress at this time. Patient and/or db family updated on plan of care and expected duration. Pain level reassessed. Patient is alert, oriented x 3, equal unlabored respirations, skin warm/dry/pink. 19:30 General: Appears comfortable, Behavior is calm, cooperative. Pain: Complains of pain in ha1 chest Pain radiates to back Pain currently is 2 out of 10 on a pain scale. Neuro: Level of Consciousness is awake, alert, obeys commands, Oriented to person, place, time, situation. Cardiovascular: Reports chest pain, Patient's skin is warm and dry. Rhythm is sinus bradycardia. Respiratory: Airway is patent Respiratory effort is even, unlabored, Respiratory pattern is regular, symmetrical. Musculoskeletal: Circulation, motion, and sensation intact. Range of motion: intact in all extremities. Vital Signs: 16:17 BP 120 / 87; Pulse 86; Resp 18; Temp 98.6; Pulse Ox 99% ; Height 5 ft. 11 in. ; Pain ll1 02/26; 16:23 BP 139 / 92; Pulse 79; Resp 16; Pulse Ox 98% ; db 16:30 BP 126 / 91; Pulse 53 LA; db 17:52 BP 115 / 76; Pulse 55; Resp 16; Pulse Ox 99% on R/A; db 18:00 BP 115 / 78; Pulse 56; Resp 18; Pulse Ox 99% on R/A; Pain 2/10; db 19:09 BP 113 / 82; Pulse 56; Resp 16 S; Pulse Ox 99% on R/A; ha1 20:00 BP 112 / 80; Pulse 55; Resp 16 S; Pulse Ox 98% on R/A; ha1 16:17 Pain Scale: Adult ll1 18:00 Pain Scale: Adult db ED Course: 16:16 Patient arrived in ED. ll1 16:20 Triage completed. ll1 16:20 Arm band placed on Patient placed in an exam room, on a stretcher. 1 16:22 Faustino López PA is PHCP. [facility] 16:22 David Hardy DO is Attending Physician. [facility] 16:26 Citlalli London, RN is Primary Nurse. db 16:36 EKG done, by ED staff, reviewed by Faustino CAVANAUGH. jw7 16:46 Initial lab(s) drawn, by az, sent to lab. Inserted saline lock: 20 gauge in right jw7 antecubital area, using aseptic technique. Blood collected. 16:46 Basic Metabolic Panel Sent. jw7 16:47 CBC with Diff Sent. jw7 16:47 Troponin HS Sent. jw7 16:53 XRAY Chest (1 view) In Process Unspecified. EDMS 17:28 CT completed. Patient tolerated procedure well. [id number] 17:29 CT Aorta for Dissection In Process Unspecified. EDMS 17:52 Patient has correct armband on for positive identification. Bed in low position. Call db light in reach. Side rails up X2. Client placed on continuous cardiac and pulse oximetry monitoring. NIBP monitoring applied. 20:04 Attending Physician role handed off by David Hardy DO ms3 20:04 Marii Timmons MD is Attending Physician. ms3 20:14 Uziel Noble MD is Referral Physician. sp3 20:38 No provider procedures requiring assistance completed. IV discontinued, intact, ha1 bleeding controlled, No redness/swelling at site. Pressure dressing applied. Administered Medications: 16:45 Drug: Ondansetron IVP 4 mg Route: IVP; Site: right antecubital; db 17:52 Follow up: Response: No adverse reaction db 16:46 Drug: morphine IVP or IV 4 mg Route: IVP; Infused Over: 4 mins; Site: right antecubital;db 17:52 Follow up: Response: No adverse reaction db 17:07 Drug: GI Cocktail without - (Maalox PO Suspension 30 ml, Lidocaine Mucous db Membrane Liquid 2 % 15 ml) Route: PO; 17:52 Follow up: Response: No adverse reaction db Medication: 20:39 VIS not applicable for this client. ha1 Point of Care Testing: Blood Glucose: 16:38 Blood Glucose: 136 mg/dL; db Ranges: Outcome: 20:14 Discharge ordered by . sp3 20:39 Discharged to home ambulatory. ha1 20:39 Condition: stable 20:39 Discharge instructions given to patient, Instructed on discharge instructions, follow up and referral plans. Demonstrated understanding of instructions, follow-up care. 20:39 Patient left the ED. ha1 Signatures: Dispatcher [employer] EDMS Faustino López PA PA jmm Lewis, Lynsay, RN RN ll1 David Hardy DO DO ms3 Marii Timmons MD MD sp3 Lakia Alcantar jw7 Cat Bal RN RN ha1 Citlalli London RN RN Zita Haddad jg10 Corrections: (The following items were deleted from the chart) 19:06 18:00 BP 115 / 78; Pulse 56bpm; Resp 18bpm; Pulse Ox 99% RA; db db
--- NOTE | 2023-01-25 20:15 | EDPHYS ---
Physician Documentation [facility] Name: Altaf Perez Age: 32 yrs Sex: Male : 1990 Arrival Date: 01/25/2023 Time: 16:10 Bed 13 Private MD: ED Physician Marii Timmons HPI: 01/25 16:28 This 32 yrs old Male presents to ER via Ambulatory with complaints of Nausea/Vomiting. [facility] 16:28 The patient presents to the emergency department with nausea. This is a 32-year-old [facility] male with history of insulin-dependent diabetes mellitus, hyperlipidemia the presents emerged department with complaints of substernal chest pain beginning last night and which has been intermittent. States pain intensifies just prior to arrival. Also complains of nausea. Denies fever. Denies cough. Patient states the pain radiates into his back. Historical: - Allergies: 16:20 No Known Allergies; ll1 - PMHx: 16:20 IDDM; Hypercholesterolemia; ll1 - PSHx: 16:20 None; ll1 - Immunization history:: Adult Immunizations up to date, Client reports receiving the 2nd dose of the Covid vaccine. - Social history:: Smoking status: Reported history of juuling and/or vaping. ROS: 16:28 Constitutional: Negative for fever, chills, and weight loss. [facility] 16:28 Cardiovascular: Positive for chest pain. 16:28 Abdomen/GI: Positive for abdominal pain, nausea. 16:28 All other systems are negative. Exam: 16:28 Head/Face: atraumatic. Eyes: EOMI, no conjunctival erythema appreciated ENT: Moist [facility] Mucus Membranes Neck: Trachea midline, Supple Chest/axilla: Normal chest wall appearance and motion. Cardiovascular: Regular rate and rhythm. No edema appreciated Respiratory: Normal respirations, no respiratory distress appreciated 16:28 Back: Normal ROM Skin: General appearance color normal MS/ Extremity: Moves all extremities, no obvious deformities appreciated, no edema noted to the lower extremities Neuro: Awake and alert Psych: Behavior is normal, Mood is normal, Patient is cooperative and pleasant 16:28 Constitutional: The patient appears alert, awake, anxious. 16:28 Abdomen/GI: Inspection: abdomen appears normal, Palpation: soft, in all quadrants. Vital Signs: 16:17 BP 120 / 87; Pulse 86; Resp 18; Temp 98.6; Pulse Ox 99% ; Height 5 ft. 11 in. ; Pain ll1 7/10; 16:23 BP 139 / 92; Pulse 79; Resp 16; Pulse Ox 98% ; db 16:30 BP 126 / 91; Pulse 53 LA; db 17:52 BP 115 / 76; Pulse 55; Resp 16; Pulse Ox 99% on R/A; db 18:00 BP 115 / 78; Pulse 56; Resp 18; Pulse Ox 99% on R/A; Pain 2/10; db 19:09 BP 113 / 82; Pulse 56; Resp 16 S; Pulse Ox 99% on R/A; ha1 20:00 BP 112 / 80; Pulse 55; Resp 16 S; Pulse Ox 98% on R/A; ha1 16:17 Pain Scale: Adult ll1 18:00 Pain Scale: Adult db MDM: 16:28 Patient medically screened. [facility] 16:28 Differential diagnosis: ACS, Pneumonia, CAD, Esophagitis, Dissection, Non specific [facility] chest pain. 17:45 Consideration of Admission/Observation Escalation of care including [facility] admission/observation considered. Management of patient was discussed with the following: David Hardy DO. I considered the following discharge prescriptions or medication management in the emergency department Medications were administered in the Emergency Department. See MAR. Counseling: I had a detailed discussion with the patient and/or guardian regarding: the historical points, exam findings, and any diagnostic results supporting the discharge/admit diagnosis, lab results, radiology results. Medication response: GI Cocktail relieved the patient's pain. The symptoms have resolved. 17:45 Response to treatment: the patient's symptoms have markedly improved after treatment. [facility] 20:04 Transition of care: After a detail discussion of the patient's case, care is ms3 transferred to Marii Timmons MD. 20:13 Data reviewed: vital signs, nurses notes. ED course: Repeat trop returned at 7.4. Will sp3 d/c with PCP follow-up.. 01/25 16:31 Order name: Basic Metabolic Panel; Complete Time: 17:18 [facility] 01/25 16:31 Order name: CBC with Diff [facility] 01/25 16:31 Order name: Troponin HS; Complete Time: 17:18 [facility] 01/25 16:45 Order name: Glucose, Ancillary Testing; Complete Time: 16:48 [facility] 01/25 18:24 Order name: Troponin High Sensitivity: repeat at 1930; Complete Time: 20:13 [facility] 01/25 16:31 Order name: XRAY Chest (1 view); Complete Time: 17:18 [facility] 01/25 16:48 Order name: CT Aorta for Dissection; Complete Time: 17:41 [facility] 01/25 16:31 Order name: EKG; Complete Time: 16:32 [facility] 01/25 16:31 Order name: Cardiac monitoring; Complete Time: 16:35 [facility] 01/25 16:31 Order name: EKG - Nurse/Tech; Complete Time: 16:35 [facility] 01/25 16:31 Order name: IV Saline Lock; Complete Time: 16:46 [facility] 01/25 16:31 Order name: Labs collected and sent; Complete Time: 16:46 [facility] 01/25 16:31 Order name: O2 Per Protocol; Complete Time: 16:35 [facility] 01/25 16:31 Order name: O2 Sat Monitoring; Complete Time: 16:35 jm Administered Medications: 16:45 Drug: Ondansetron IVP 4 mg Route: IVP; Site: right antecubital; db 17:52 Follow up: Response: No adverse reaction db 16:46 Drug: morphine IVP or IV 4 mg Route: IVP; Infused Over: 4 mins; Site: right antecubital;db 17:52 Follow up: Response: No adverse reaction db 17:07 Drug: GI Cocktail without - (Maalox PO Suspension 30 ml, Lidocaine Mucous db Membrane Liquid 2 % 15 ml) Route: PO; 17:52 Follow up: Response: No adverse reaction db Point of Care Testing: Blood Glucose: 16:38 Blood Glucose: 136 mg/dL; db Ranges: Critical Glucose Levels:Adult <50 mg/dl or >400 mg/dl <40 mg/dl or >180 mg/dl Disposition: 19:46 Co-signature as Attending Physician, David Hardy DO. ms3 Disposition Summary: 01/25/23 20:14 Discharge Ordered Location: Home sp3 Condition: Stable sp3 Diagnosis - Chest pain, unspecified sp3 Followup: [facility] - With: - When: 2 - 3 days - Reason: Recheck today's complaints, Continuance of care, Re-evaluation by your physician Discharge Instructions: - Discharge Summary Sheet sp3 - Nonspecific Chest Pain, Adult sp3 Forms: - Medication Reconciliation Form sp3 - Thank You Letter sp3 - Antibiotic Education sp3 - Prescription Opioid Use sp3 Signatures: Dispatcher [employer] EDMS Faustino López PA PA jmm Lewis, Lynsay, RN RN ll1 David Hardy DO DO ms3 Marii Timmons MD MD sp3 Citlalli London RN RN db
[2023-01-25 20:49] VITALS: TEMP 98.6
[2023-01-25 21:10] VITALS: BP 112/80; O2SAT 98
--- NOTE | 2023-01-26 14:48 | EKG ---
Test Date: 2023-01-25 Test Time: 16:30:01 Coat Padder: KATHY MEASUREMENT RESULTS: Intervals: Rate: 82 WV: 184 QRSD: 106 QT: 368 QTc: 429 [place]: P: 68 WV: 184 QRS: 61 T: 35 INTERPRETIVE STATEMENTS: Normal sinus rhythm Normal ECG No previous ECG available for comparison Electronically Signed On 01-26-23 14:44:37 CDT by Lalo Nur
== END 2023-01-25 20:39 | disposition home or self-care (01) ==
LOC: ER 16:10
DX: R07.9 Chest pain, unspecified (principal)
CPT/HCPCS: 36415; 71045; 71275; 74175; 80048; 82947; 84484; 85025; 93005; 96374; 96375; 99285; J2405; Q9967

== ENCOUNTER 2023-01-30 01:13 | Emergency (ER) | payer SELFPAY ==
--- OUTSIDE RECORDS SUMMARY | 2023-01-30 01:17 | XMS REPORT | Continuity of Care Document ---
:1990 Author Organization [facility] t Address [address] [facility] [address] [place] [address] Care Team Providers Name Role Phone Bina Ochoa Primary Care Physician [phone] Problems This patient has no known problems. [...] Goal Plan of Care Note [code = 23871-0] Goal Plan of Care Note [code = 43519-6] Goal Plan of Care Note [code = 57182-7] Goal Plan of Care Note [code = 44035-3] Goal Plan of Care Note [code = 07321-3] Goal Plan of Care Note [code = 11423-7] Goal Plan of Care Note [code = 64657-7] Goal Plan of Care Note [code = 26322-0] Goal Plan of Care Note [code = 40169-0] Goal Plan of Care Note [code = 43579-5] Goal Plan of Care Note [code = 96056-1] Goal Plan of Care Note [code = 06037-1] Goal Plan of Care Note [code = 71682-4] Goal Plan of Care Note [code = 02573-5] Goal Plan of Care Note [code = 96908-3] Goal Plan of Care Note [code = 79910-4] Goal Plan of Care Note [code = 51973-8] Goal Plan of Care Note [code = 83225-8] Goal Plan of Care Note [code = 67521-1] Goal Plan of Care Note [code = 36392-2] Goal Plan of Care Note [code = 92578-7] Goal Plan of Care Note [code = 46629-2] Goal Plan of Care Note [code = 98234-8] Goal Plan of Care Note [code = 74639-6] Goal Plan of Care Note [code = 73850-1] Goal Plan of Care Note [code = 71527-5] Goal Plan of Care Note [code = 89359-0] Goal Plan of Care Note [code = 72892-5] Goal Plan of Care Note [code = 98613-9] Goal Plan of Care Note [code = 57906-6] Goal Plan of Care Note [code = 26680-4] Goal Plan of Care Note [code = 70374-9] Goal Plan of Care Note [code = 05975-0] Goal Plan of Care Note [code = 67083-2] Goal Plan of Care Note [code = 63769-9] Goal Plan of Care Note [code = 93066-9] Goal Plan of Care Note [code = 18629-7] Goal Plan of Care Note [code = 03391-9] Goal Plan of Care Note [code = 88870-6] Goal Plan of Care Note [code = 09301-8] Goal Plan of Care Note [code = 04700-7] Goal Plan of Care Note [code = 68322-2] Goal Plan of Care Note [code = 72260-3] Goal Plan of Care Note [code = 78424-6] Goal Plan of Care Note [code = 34986-4] Goal Plan of Care Note [code = 18661-5] Goal Plan of Care Note [code = 11252-3] Goal Plan of Care Note [code = 81826-1] Goal Plan of Care Note [code = 91956-3] Goal Plan of Care Note [code = 48191-6] Goal Plan of Care Note [code = 82619-3] Goal Plan of Care Note [code = 10798-3] Goal Plan of Care Note [code = 42526-1] Encounters Start End Encounter Admission Attending Care Care Encounter Source Date/Time Date/Time Type Type Clinicians Facility Department ID 2023-01-08 2023-01-08 Outpatient SFA SFA [id number] Johann 11:43:52 11:43:52 [id number] F [place] 2022-12-20 2022-12-20 Outpatient SFA SFA [id number]- Johann 11:32:16 11:32:16 [id number] F [place] 2022-12-19 2022-12-19 Outpatient SFA SFA [id number] Johann 13:34:58 13:34:58 [id number] [place] 2022-11-07 2022-11-07 Outpatient SFA SFA [id number]- Johann 09:41:09 09:41:09 [id number] F [place] 2022-10-26 2022-10-26 Outpatient SFA SFA [id number]- Johann 10:43:17 10:43:17 [id number] F [place] 2022-08-02 2022-08-02 Outpatient SFA SFA [id number]- Johann 13:36:36 13:36:36 [id number] F [place] 2022-08-02 2022-08-02 Outpatient [id number] 00:00:00 00:00:00 Visit c2rk-83ae 3eb-45ef-a -x0oe-5j7 6bc-0h316i 08byd8755 ds8836 2022-06-27 2022-06-27 Outpatient SFA SFA [id number]- 202 Johann 14:28:49 14:28:49 93628 F [place] 2022-06-27 2022-06-27 Outpatient [id number]- [id number] v60y7u-s 00:00:00 00:00:00 Visit zc82-21gu h08-12dy-o -da28-yr6 i11-wp418v 05lp23aou d31cbc 2022-05-30 2022-05-30 Outpatient [id number]- [id number] 7a 09542x-x 00:00:00 00:00:00 Visit i920-8358 467-4492-8 -33u8-1pe 4c1-2koya1 de18i8vn7 6f0de3 2022-05-24 2022-05-24 Outpatient SFA SFA [id number]- 202 [place] 13:25:23 13:25:23 11405 F [place] 2022-05-24 2022-05-24 Outpatient [id number] 00:00:00 00:00:00 Visit 7s30-2c84 d02-5a46-2 -8616-bb7 616-bb7bb5 pq16jm968 6wy497 2022-05-17 2022-05-17 Outpatient n3h7bf90- [id number] f6 k4rv45-3 00:00:00 00:00:00 Visit 51o8-9ik3 8x8-1aw1-8 -6q8n-los y2i-majd57 b78nskvec ecbfaa 2022-04-26 2022-04-26 Outpatient [id number]- [id number] 0c 969x4s-q 00:00:00 00:00:00 Visit y70x-53cv 91d-41dc-9 -9142-545 142-545c34 g71ck2018 yf1183 Results Test Description Test Time Test Comments Results Result Comments Source HEMOGLOBIN A1c 2022-10-27 02:13:26 Test Item Value Reference Range Interpretation Comme nts HEMOGLOBIN A1c (test 9.6 % 4.2-5.6 H [employer] GUIDELINES FOR code = 51781) HGB A1C: PREDI ABETES/INCREASED RISK . . [...] ALTERN ATE TESTING OR LABORATORY CONSULTATION. * [facility] has important pathology staff changes e ffective 10/18/2022. New pathology staff will provide uninterrupted, excellent patie nt care and clinical consultation. S ee URL: [email or web address]. UNLESS OTHERWISE INDIC ATED, ALL TESTING PERFORMED AT [facility] [employer] [address] [place] [address] GAS PUMPING STATION HELPER: ALEX ELIAS M.D. [place] NUMBER [id number] [place]. [id number] CULTURE, [id number] 16:24:13SPECIMEN NUMBER: [id number] CULTURE, URINE SPECIMEN NUMBER: [id number] SPECIMEN COMMENT: URINE SOURCE: URINE REPORT STATUS: [...] CULTURE, URINE (test SPECIMEN NUMBER: code = 09362) [id number] CULTURE, [id number] 00:00:00 Test Item Value Reference Range Interpretation Comments CULTURE, URINE (test SPECIMEN NUMBER: code = 03104) [id number] CULTURE, [id number] 00:00:00 Test Item Value Reference Range Interpretation Comments CULTURE, URINE (test SPECIMEN NUMBER: code = 98740) [id number] CULTURE, [id number] 00:00:00 Test Item Value Reference Range Interpretation Comments CULTURE, URINE (test SPECIMEN NUMBER: code = 41657) [id number] CULTURE, [id number] 00:00:00 Test Item Value Reference Range Interpretation Comments CULTURE, URINE (test SPECIMEN NUMBER: code = 68426) [id number] CULTURE, [id number] 00:00:00 Test Item Value Reference Range Interpretation Comments CULTURE, URINE (test SPECIMEN NUMBER: code = 59696) [id number] CULTURE, [id number] 00:00:00 Test Item Value Reference Range Interpretation Comments CULTURE, URINE (test SPECIMEN NUMBER: code = 81706) [id number] CULTURE, [id number] 00:00:00 Test Item Value Reference Range Interpretation Comments CULTURE, URINE (test SPECIMEN NUMBER: code = 65091) [id number] CT/NG, NAAT, [id number] 19:07:28 Test Item Value Reference Range Interpretation Comments GONORRHEA, NAAT NEGATIVE NEGATIVE IMPORTA NT NOTICE: SEE (test code = [place] [address]) [email or web address] Note: Assay methodology is nucleic acid amplification b y spring encaser mediated amplification ( TMA) utilizing the A ptima Combo 2 Assay. CHLAMYDIA, NAAT NEGATIVE NEGATIVE IMPORTA NT NOTICE: SEE (test code = [place] [address]) [email or web address] Note: Assay methodology is nucleic acid amplification b y spring encaser mediated amplification ( TMA) utilizing the A ptima Combo 2 Assay. UNLESS OTHERWISE INDICATED, ALL TESTING PERFORMED [facility] PATHOLOGY [facility], [facility]. [address] [place] [id number] [place] [address] DIRECTOR: KUSHAL AGUSTIN M.D. CLIA NUMBER [id number] CAP ACCREDITATION N O. [id number] CT/NG, TMA, [id number] 00:00:00 Test Item Value Reference Range Interpretation Comments GONORRHEA, NAAT (test code = 56614) NEGATIVE CHLAMYDIA, NAAT (test code = 74452) NEGATIVE CT/NG, TMA, [id number] 00:00:00 Test Item Value Reference Range Interpretation Comments GONORRHEA, NAAT (test code = 66227) NEGATIVE CHLAMYDIA, NAAT (test code = 77675) NEGATIVE CT/NG, TMA, [id number] 00:00:00 Test Item Value Reference Range Interpretation Comments GONORRHEA, NAAT (test code = 96638) NEGATIVE CHLAMYDIA, NAAT (test code = 43185) NEGATIVE CT/NG, TMA, [id number] 00:00:00 Test Item Value Reference Range Interpretation Comments GONORRHEA, NAAT (test code = 54765) NEGATIVE CHLAMYDIA, NAAT (test code = 33698) NEGATIVE CT/NG, TMA, [id number] 00:00:00 Test Item Value Reference Range Interpretation Comments GONORRHEA, NAAT (test code = 27425) NEGATIVE CHLAMYDIA, NAAT (test code = 33102) NEGATIVE CT/NG, TMA, [id number] 00:00:00 Test Item Value Reference Range Interpretation Comments GONORRHEA, NAAT (test code = 72627) NEGATIVE CHLAMYDIA, NAAT (test code = 07468) NEGATIVE CT/NG, TMA, [id number] 00:00:00 Test Item Value Reference Range Interpretation Comments GONORRHEA, NAAT (test code = 51543) NEGATIVE CHLAMYDIA, NAAT (test code = 68890) NEGATIVE CT/NG, TMA, [id number] 00:00:00 Test Item Value Reference Range Interpretation Comments GONORRHEA, NAAT (test code = 09352) NEGATIVE CHLAMYDIA, NAAT (test code = 44319) NEGATIVE H. PYLORI (BREATH)2022-05-19 15:05:57 Test Item Value Reference Range Interpretation Comments H. PYLORI (BREATH) (test code = NEGATIVE NEGATIVE 93255) [id number] 04:16:31 Test Item Value Reference Range Interpretation Comments AMYLASE (test code = 2205) 37 U/L 28-100 [id number] 04:16:31 Test Item Value Reference Range Interpretation Comments LIPASE (test code = 18 U/L 13-60 UNLESS OTHERWISE 2058) INDICATED, ALL TESTING PERFORMED [facility] PATHOLOGY [facility] [address] [place] [id number] [place] [address] DIRECTOR: KUSHAL AGUSTIN M.D. CLIA NUMBER [id number] CAP ACCREDITATION N O. [id number] H. PYLORI (BREATH)2022-05-19 00:00:00 Test Item Value Reference Range Interpretation Comments H. PYLORI (BREATH) (test code = NEGATIVE 58928) [id number] 00:00:00 Test Item Value Reference Range Interpretation Comments AMYLASE (test code = 2205) 37 U/L [id number] 00:00:00 Test Item Value Reference Range Interpretation Comments AMYLASE (test code = 2205) 37 U/L [id number] 00:00:00 Test Item Value Reference Range Interpretation Comments LIPASE (test code = 2057) 18 U/L [id number] 00:00:00 Test Item Value Reference Range Interpretation Comments LIPASE (test code = 2057) 18 U/L [id number] 00:00:00 Test Item Value Reference Range Interpretation Comments LIPASE (test code = 2057) 18 U/L H. PYLORI (BREATH)2022-05-19 00:00:00 Test Item Value Reference Range Interpretation Comments H. PYLORI (BREATH) (test code = NEGATIVE 26862) H. PYLORI (BREATH)2022-05-19 00:00:00 Test Item Value Reference Range Interpretation Comments H. PYLORI (BREATH) (test code = NEGATIVE 22067) [id number] 00:00:00 Test Item Value Reference Range Interpretation Comments AMYLASE (test code = 2204) 37 U/L [id number] 00:00:00 Test Item Value Reference Range Interpretation Comments AMYLASE (test code = 2204) 37 U/L [id number] 00:00:00 Test Item Value Reference Range Interpretation Comments LIPASE (test code = 2057) 18 U/L [id number] 00:00:00 Test Item Value Reference Range Interpretation Comments LIPASE (test code = 2057) 18 U/L [id number] 00:00:00 Test Item Value Reference Range Interpretation Comments LIPASE (test code = 2057) 18 U/L H. PYLORI (BREATH)2022-05-19 00:00:00 Test Item Value Reference Range Interpretation Comments H. PYLORI (BREATH) (test code = NEGATIVE 16756) H. PYLORI (BREATH)2022-05-19 00:00:00 Test Item Value Reference Range Interpretation Comments H. PYLORI (BREATH) (test code = NEGATIVE 21915) [id number] 00:00:00 Test Item Value Reference Range Interpretation Comments AMYLASE (test code = 2205) 37 U/L [id number] 00:00:00 Test Item Value Reference Range Interpretation Comments AMYLASE (test code = 2205) 37 U/L [id number] 00:00:00 Test Item Value Reference Range Interpretation Comments LIPASE (test code = 2057) 18 U/L [id number] 00:00:00 Test Item Value Reference Range Interpretation Comments LIPASE (test code = 2057) 18 U/L [id number] 00:00:00 Test Item Value Reference Range Interpretation Comments LIPASE (test code = 2057) 18 U/L H. PYLORI (BREATH)2022-05-19 00:00:00 Test Item Value Reference Range Interpretation Comments H. PYLORI (BREATH) (test code = NEGATIVE 97222) H. PYLORI (BREATH)2022-05-19 00:00:00 Test Item Value Reference Range Interpretation Comments H. PYLORI (BREATH) (test code = NEGATIVE 03905) [id number] 00:00:00 Test Item Value Reference Range Interpretation Comments AMYLASE (test code = 2204) 37 U/L [id number] 00:00:00 Test Item Value Reference Range Interpretation Comments AMYLASE (test code = 2204) 37 U/L [id number] 00:00:00 Test Item Value Reference Range Interpretation Comments LIPASE (test code = 2057) 18 U/L [id number] 00:00:00 Test Item Value Reference Range Interpretation Comments LIPASE (test code = 2057) 18 U/L [id number] 00:00:00 Test Item Value Reference Range Interpretation Comments LIPASE (test code = 2057) 18 U/L H. PYLORI (BREATH)2022-05-19 00:00:00 Test Item Value Reference Range Interpretation Comments H. PYLORI (BREATH) (test code = NEGATIVE 46294) HEMOGLOBIN [id number] 23:37:11 Test Item Value Reference Range Interpretation Comments HEMOGLOBIN A1c (test 10.4 % 4.2-5.6 H AMER[employer] AN DIABETES code = 93006) ASSOCIATION IDELINES FOR HGB A1C: PREDIABETES/INC REASED [...] INDICATED, ALL TESTING PER FORMED ATCLINICAL PATH [facility] [place]. [address] [place] [address] LABORATORY DIRE CTOR: Lelo SOLOMON. CLIA NUMBER [id number] CAP ACCREDITATION N O. [id number] COMPREHENSIVE METABOLIC [id number] 06:29:07 Test Item Value Reference Range Interpretation Comments GLUCOSE (test code = 264 MG/DL 70-99 H 2216) BUN (test code = 9 MG/DL 6-20 2207) CREATININE (test 0.68 MG/DL 0.80-1.40 L code = 2214) eGFR (2020 CKD-EPI) 127 >60 (test code = 10683) ML/MIN/1.73 CALC BUN/CREAT (test 13 RATIO 6-28 code = 2235) SODIUM (test code = 143 MEQ/L 015-778 4346) POTASSIUM (test code 4.6 MEQ/L 3.5-5.4 = [...] code = 20 U/L 5-50 2218) LIPID [id number] 06:29:07 Test Item Value Reference Range Interpretation [...] MOREINFORMATION , SEE CLIENT ANNOUNCE MENT AT [email or web address] RISK RATIO LDL/HDL 2.95 RATIO <3.55 (test code = 2238) COMPREHENSIVE METABOLIC [id number] 00:00:00 Test Item Value Reference Range Interpretation Comments GLUCOSE (test code = 2217) 264 MG/DL BUN (test code = 2208) 9 MG/DL CREATININE (test code = 2214) 0.68 MG/DL eGFR (2020 CKD-EPI) (test 127 ML/MIN/1.73 code = 01889) CALC BUN/CREAT (test code = 13 RATIO [...] (test code = 2219) 20 U/L LIPID [id number] 00:00:00 Test Item Value Reference Range Interpretation Comments CHOLESTEROL (test code = 2210) 172 MG/DL TRIGLYCERIDES (test code = 2232) 84 MG/DL HDL CHOLESTEROL (test code = 2220) 39 MG/DL CALC LDL CHOL (test code = 2237) 115 MG/DL RISK RATIO LDL/HDL (test code = 2.95 RATIO 2238) LIPID [id number] 00:00:00 Test Item Value Reference Range Interpretation Comments CHOLESTEROL (test code = 2210) 172 MG/DL TRIGLYCERIDES (test code = 2232) 84 MG/DL HDL CHOLESTEROL (test code = 2220) 39 MG/DL CALC LDL CHOL (test code = 2237) 115 MG/DL RISK RATIO LDL/HDL (test code = 2.95 RATIO 2238) HEMOGLOBIN [id number] 00:00:00 Test Item Value Reference Range Interpretation Comments HEMOGLOBIN A1c (test code = 78604) 10.4 % HEMOGLOBIN [id number] 00:00:00 Test Item Value Reference Range Interpretation Comments HEMOGLOBIN A1c (test code = 61729) 10.4 % HEMOGLOBIN [id number] 00:00:00 Test Item Value Reference Range Interpretation Comments HEMOGLOBIN A1c (test code = 90893) 10.4 % COMPREHENSIVE METABOLIC [id number] 00:00:00 Test Item Value Reference Range Interpretation Comments GLUCOSE (test code = 2217) 264 MG/DL BUN (test code = 2208) 9 MG/DL CREATININE (test code = 2214) 0.68 MG/DL eGFR (2020 CKD-EPI) (test 127 ML/MIN/1.73 code = 07227) CALC BUN/CREAT (test code = 13 RATIO [...] code = 2219) 20 U/L COMPREHENSIVE METABOLIC [id number] 00:00:00 Test Item Value Reference Range Interpretation Comments GLUCOSE (test code = 2217) 264 MG/DL BUN (test code = 2208) 9 MG/DL CREATININE (test code = 2214) 0.68 MG/DL eGFR (2020 CKD-EPI) (test 127 ML/MIN/1.73 code = 90153) CALC BUN/CREAT (test code = 13 RATIO [...] (test code = 2219) 20 U/L LIPID [id number] 00:00:00 Test Item Value Reference Range Interpretation Comments CHOLESTEROL (test code = 2210) 172 MG/DL TRIGLYCERIDES (test code = 2232) 84 MG/DL HDL CHOLESTEROL (test code = 2220) 39 MG/DL CALC LDL CHOL (test code = 2237) 115 MG/DL RISK RATIO LDL/HDL (test code = 2.95 RATIO 2238) LIPID [id number] 00:00:00 Test Item Value Reference Range Interpretation Comments CHOLESTEROL (test code = 2210) 172 MG/DL TRIGLYCERIDES (test code = 2232) 84 MG/DL HDL CHOLESTEROL (test code = 2220) 39 MG/DL CALC LDL CHOL (test code = 2237) 115 MG/DL RISK RATIO LDL/HDL (test code = 2.95 RATIO 2238) HEMOGLOBIN [id number] 00:00:00 Test Item Value Reference Range Interpretation Comments HEMOGLOBIN A1c (test code = 30240) 10.4 % HEMOGLOBIN [id number] 00:00:00 Test Item Value Reference Range Interpretation Comments HEMOGLOBIN A1c (test code = 54555) 10.4 % HEMOGLOBIN [id number] 00:00:00 Test Item Value Reference Range Interpretation Comments HEMOGLOBIN A1c (test code = 93067) 10.4 % COMPREHENSIVE METABOLIC [id number] 00:00:00 Test Item Value Reference Range Interpretation Comments GLUCOSE (test code = 2217) 264 MG/DL BUN (test code = 2208) 9 MG/DL CREATININE (test code = 2214) 0.68 MG/DL eGFR (2020 CKD-EPI) (test 127 ML/MIN/1.73 code = 71702) CALC BUN/CREAT (test code = 13 RATIO [...] code = 2219) 20 U/L COMPREHENSIVE METABOLIC [id number] 00:00:00 Test Item Value Reference Range Interpretation Comments GLUCOSE (test code = 2217) 264 MG/DL BUN (test code = 2208) 9 MG/DL CREATININE (test code = 2214) 0.68 MG/DL eGFR (2020 CKD-EPI) (test 127 ML/MIN/1.73 code = 57732) CALC BUN/CREAT (test code = 13 RATIO [...] (test code = 2219) 20 U/L LIPID [id number] 00:00:00 Test Item Value Reference Range Interpretation Comments CHOLESTEROL (test code = 2210) 172 MG/DL TRIGLYCERIDES (test code = 2232) 84 MG/DL HDL CHOLESTEROL (test code = 2220) 39 MG/DL CALC LDL CHOL (test code = 2237) 115 MG/DL RISK RATIO LDL/HDL (test code = 2.95 RATIO 2238) LIPID [id number] 00:00:00 Test Item Value Reference Range Interpretation Comments CHOLESTEROL (test code = 2210) 172 MG/DL TRIGLYCERIDES (test code = 2232) 84 MG/DL HDL CHOLESTEROL (test code = 2220) 39 MG/DL CALC LDL CHOL (test code = 2237) 115 MG/DL RISK RATIO LDL/HDL (test code = 2.95 RATIO 2238) HEMOGLOBIN [id number] 00:00:00 Test Item Value Reference Range Interpretation Comments HEMOGLOBIN A1c (test code = 80294) 10.4 % HEMOGLOBIN [id number] 00:00:00 Test Item Value Reference Range Interpretation Comments HEMOGLOBIN A1c (test code = 04835) 10.4 % HEMOGLOBIN [id number] 00:00:00 Test Item Value Reference Range Interpretation Comments HEMOGLOBIN A1c (test code = 48107) 10.4 % COMPREHENSIVE METABOLIC [id number] 00:00:00 Test Item Value Reference Range Interpretation Comments GLUCOSE (test code = 2217) 264 MG/DL BUN (test code = 2208) 9 MG/DL CREATININE (test code = 2214) 0.68 MG/DL eGFR (2020 CKD-EPI) (test 127 ML/MIN/1.73 code = 45379) CALC BUN/CREAT (test code = 13 RATIO [...] code = 2219) 20 U/L COMPREHENSIVE METABOLIC [id number] 00:00:00 Test Item Value Reference Range Interpretation Comments GLUCOSE (test code = 2217) 264 MG/DL BUN (test code = 2208) 9 MG/DL CREATININE (test code = 2214) 0.68 MG/DL eGFR (2020 CKD-EPI) (test 127 ML/MIN/1.73 code = 61733) CALC BUN/CREAT (test code = 13 RATIO [...] (test code = 2219) 20 U/L LIPID [id number] 00:00:00 Test Item Value Reference Range Interpretation Comments CHOLESTEROL (test code = 2210) 172 MG/DL TRIGLYCERIDES (test code = 2232) 84 MG/DL HDL CHOLESTEROL (test code = 2220) 39 MG/DL CALC LDL CHOL (test code = 2237) 115 MG/DL RISK RATIO LDL/HDL (test code = 2.95 RATIO 2238) LIPID [id number] 00:00:00 Test Item Value Reference Range Interpretation Comments CHOLESTEROL (test code = 2210) 172 MG/DL TRIGLYCERIDES (test code = 2232) 84 MG/DL HDL CHOLESTEROL (test code = 2220) 39 MG/DL CALC LDL CHOL (test code = 2237) 115 MG/DL RISK RATIO LDL/HDL (test code = 2.95 RATIO 2238) HEMOGLOBIN [id number] 00:00:00 Test Item Value Reference Range Interpretation Comments HEMOGLOBIN A1c (test code = 27116) 10.4 % HEMOGLOBIN [id number] 00:00:00 Test Item Value Reference Range Interpretation Comments HEMOGLOBIN A1c (test code = 76427) 10.4 % HEMOGLOBIN [id number] 00:00:00 Test Item Value Reference Range Interpretation Comments HEMOGLOBIN A1c (test code = 68303) 10.4 % COMPREHENSIVE METABOLIC [id number] 00:00:00 Test Item Value Reference Range Interpretation Comments GLUCOSE (test code = 2217) 264 MG/DL BUN (test code = 2208) 9 MG/DL CREATININE (test code = 2214) 0.68 MG/DL eGFR (2020 CKD-EPI) (test 127 ML/MIN/1.73 code = 72279) CALC BUN/CREAT (test code = 13 RATIO [...] code = 2219) 20 U/L COMPREHENSIVE METABOLIC [id number] 00:00:00 Test Item Value Reference Range Interpretation Comments GLUCOSE (test code = 2217) 264 MG/DL BUN (test code = 2208) 9 MG/DL CREATININE (test code = 2214) 0.68 MG/DL eGFR (2020 CKD-EPI) (test 127 ML/MIN/1.73 code = 86671) CALC BUN/CREAT (test code = 13 RATIO [...] (test code = 2219) 20 U/L LIPID [id number] 00:00:00 Test Item Value Reference Range Interpretation Comments CHOLESTEROL (test code = 2210) 172 MG/DL TRIGLYCERIDES (test code = 2232) 84 MG/DL HDL CHOLESTEROL (test code = 2220) 39 MG/DL CALC LDL CHOL (test code = 2237) 115 MG/DL RISK RATIO LDL/HDL (test code = 2.95 RATIO 2238) LIPID [id number] 00:00:00 Test Item Value Reference Range Interpretation Comments CHOLESTEROL (test code = 2210) 172 MG/DL TRIGLYCERIDES (test code = 2232) 84 MG/DL HDL CHOLESTEROL (test code = 2220) 39 MG/DL CALC LDL CHOL (test code = 2237) 115 MG/DL RISK RATIO LDL/HDL (test code = 2.95 RATIO 2238) HEMOGLOBIN [id number] 00:00:00 Test Item Value Reference Range Interpretation Comments HEMOGLOBIN A1c (test code = 83839) 10.4 % HEMOGLOBIN [id number] 00:00:00 Test Item Value Reference Range Interpretation Comments HEMOGLOBIN A1c (test code = 78143) 10.4 % HEMOGLOBIN [id number] 00:00:00 Test Item Value Reference Range Interpretation Comments HEMOGLOBIN A1c (test code = 85229) 10.4 % COMPREHENSIVE METABOLIC [id number] 00:00:00 Test Item Value Reference Range Interpretation Comments GLUCOSE (test code = 2217) 264 MG/DL BUN (test code = 2208) 9 MG/DL CREATININE (test code = 2214) 0.68 MG/DL eGFR (2020 CKD-EPI) (test 127 ML/MIN/1.73 code = 84432) CALC BUN/CREAT (test code = 13 RATIO [...]
[2023-01-30] MEDS ORDERED: FAMOTIDINE 20 MG/2 ML VIAL IV ONE (01:58)
[2023-01-30] MEDS ORDERED: ONDANSETRON 4 MG/2 ML VIAL ONE (01:58)
[2023-01-30] MEDS ORDERED: KETOROLAC 30 MG/ML INJ ONE (01:58)
[2023-01-30] MEDS ORDERED: NA CHLORIDE 0.9% 1,000 ML ONE (01:58)
[2023-01-30 02:08] LABS: Hematocrit 42.4 % (39.6-49.0); Lymphocytes % 31.3 % (15.3-44.8); MPV 8.2 fL (7.6-11.3); RBC Red Blood Cell Count 4.81 M/uL (4.33-5.43)
[2023-01-30 02:19] LABS: Bilirubin Total 0.4 mg/dL (0.2-1.0); Potassium 3.3 mEq/L (3.5-5.1); Protein, Total 8.4 g/dL (6.4-8.2)
--- NOTE | 2023-01-30 03:06 | EDPHYS ---
Physician Documentation [facility] Name: Altaf Perez Age: 32 yrs Sex: Male : 1990 Arrival Date: 01/30/2023 Time: :13 Bed 14 Private MD: NATHALIE Physician Robbin Li HPI: 01/30 01:31 This 32 yrs old Male presents to ER via Unassigned with complaints of Abdominal Pain, kb Nausea, Dizziness. 01:31 The patient presents with abdominal pain that is diffuse. Onset: The symptoms/episode kb began/occurred 2 hour(s) ago. The symptoms do not radiate. Associated signs and symptoms: Pertinent positives: nausea, Pertinent negatives: constipation, diarrhea, fever, vomiting. The symptoms are described as constant. Modifying factors: The symptoms are alleviated by nothing, the symptoms are aggravated by nothing. Severity of pain: At its worst the pain was moderate in the emergency department the pain is unchanged. The patient has experienced a previous episode. The patient has not recently seen a physician. This is a 32-year-old male with a history of diabetes who presents with diffuse abdominal pain, worse in right upper quadrant, and nausea that began 2 hours ago. Denies vomiting or diarrhea. Denies any alleviating or aggravating factors. . Historical: - Allergies: 01:34 No Known Allergies; lg3 - Home Meds: 01:34 Novolog U-100 Insulin aspart Sub-Q [Active]; lg3 - PMHx: 01:34 Hypercholesterolemia; IDDM; lg3 - PSHx: 01:34 None; lg3 - Immunization history:: Client reports receiving the 2nd dose of the Covid vaccine. - Social history:: Smoking status: Reported history of juuling and/or vaping. ROS: 01:32 Constitutional: Negative for fever, chills, and weight loss. kb 01:32 Abdomen/GI: Positive for abdominal pain, nausea. 01:32 All other systems are negative. Exam: 01:32 Constitutional: This is a well developed, well nourished patient who is awake, alert, kb and in no acute distress. Head/Face: Normocephalic, atraumatic. ENT: Moist Mucous membranes Cardiovascular: Regular rate and rhythm with a normal S1 and S2. No gallops, murmurs, or rubs. No pulse deficits. Respiratory: Respirations even and unlabored. No increased work of breathing. Talking in full sentences Skin: Warm, dry with normal turgor. Normal color. MS/ Extremity: Pulses equal, no cyanosis. Neurovascular intact. Full, normal range of motion. Neuro: Awake and alert, GCS 15, oriented to person, place, time, and situation. Moves all extremities. Normal gait. 01:32 Abdomen/GI: Inspection: abdomen appears normal, Bowel sounds: normal, Palpation: soft, in all quadrants, mild abdominal tenderness, in the right lower quadrant and left lower quadrant, moderate abdominal tenderness, in the right upper quadrant. Vital Signs: 01:32 BP 117 / 82; Pulse 94; Resp 18; Temp 98.9(O); Pulse Ox 100% on R/A; Weight 81.65 kg; lg3 Height 5 ft. 11 in. ; Pain 3/10; 03:17 BP 107 / 76; Pulse 68; Resp 16; Pulse Ox 99% on R/A; ll3 01:32 Body Mass Index 25.10 (81.65 kg, 180.34 cm) lg3 01:32 Pain Scale: Adult lg3 MDM: 01:28 Patient medically screened. kb 01:33 Differential diagnosis: appendicitis, cholecystitis, Cholelithiasis, gastritis, kb gastroesophageal reflux disease. Data reviewed: vital signs, nurses notes. 01:53 Transition of care: After a detail discussion of the patient's case, care is kb transferred to Robbin Li MD. 03:11 Differential diagnosis: Gastritis, cholecystitis, appendicitis, bowel obstruction. Test rt considered but Not performed: CT: Offered CT scan to patient, patient states that is not necessary at this time, will return for worsening symptoms.. Care significantly affected by the following chronic conditions: Diabetes. Counseling: I had a detailed discussion with the patient and/or guardian regarding: the historical points, exam findings, and any diagnostic results supporting the discharge/admit diagnosis, lab results, radiology results, the need for outpatient follow up, to return to the emergency department if symptoms worsen or persist or if there are any questions or concerns that arise at home. Response to treatment: the patient's symptoms have markedly improved after treatment. 01/30 01:33 Order name: CBC with Diff; Complete Time: 02:19 kb 01/30 01:33 Order name: CMP; Complete Time: 02:19 kb 01/30 01:33 Order name: Lipase; Complete Time: 02:19 kb 01/30 01:51 Order name: Glucose, Ancillary Testing; Complete Time: 02:19 EDMS 01/30 01:33 Order name: Abdomen Limited US kb 01/30 01:33 Order name: IV Saline Lock; Complete Time: 01:59 kb 01/30 01:33 Order name: Labs collected and sent; Complete Time: 01:59 kb Administered Medications: 01:59 Drug: NS 0.9% IV 1000 ml Route: IV; Rate: 1 bolus; Site: right antecubital; ll3 03:15 Follow up: Response: No adverse reaction; IV Status: Completed infusion; IV Intake: ll3 1000ml 01:59 Drug: TORadol - Ketorolac IVP 15 mg Route: IVP; Site: right antecubital; ll3 03:16 Follow up: Response: No adverse reaction; Marked relief of symptoms ll3 01:59 Drug: Ondansetron IVP 4 mg Route: IVP; Site: right antecubital; ll3 03:16 Follow up: Response: No adverse reaction; Marked relief of symptoms ll3 02:00 Drug: Famotidine IVP 20 mg Route: IVP; Site: right antecubital; ll3 03:15 Follow up: Response: No adverse reaction; Marked relief of symptoms ll3 Disposition: 03:11 Co-signature as Attending Physician, Robbin Li MD I reviewed the patient's care rt provided by Advanced Practice Provider \T\ agree w/ the diagnosis \T\ care plan. I personally saw the pt \T\ performed a substantive portion of the visit, incldng all aspects of the (History/Exam/Medical Decision Making). PA/DIRECTOR GENERAL's history reviewed, patient interviewed, and examined. Patient presents to the ED with abdominal pain, he is focally tender to the right upper quadrant but states that the pain is significantly better with treatment in the ED. I had a long discussion with the patient regarding getting a CAT scan versus not. Patient states that he wishes to go home and also request treatment for constipation as well. Patient states that this is similar to when he has had gastritis in the past, will treat for this. Strict return precautions were given to the patient to return for a CT scan if he has worsening symptoms.. Disposition Summary: 06/13/23 03:05 Discharge Ordered Location: Home rt Problem: new rt Symptoms: have improved rt Condition: Stable rt Diagnosis - Acute gastritis without bleeding rt - Constipation rt Followup: rt - With: Private Physician - When: 2 - 3 days - Reason: Followup: rt - With: Emergency Department - When: - Reason: Worsening of condition Discharge Instructions: - Discharge Summary Sheet rt - Constipation, Adult rt - Gastritis, Adult rt Forms: - Medication Reconciliation Form rt - Thank You Letter rt - Antibiotic Education rt - Prescription Opioid Use rt Prescriptions: - ondansetron 4 mg Oral Tablet,disintegrating - take 1 tablet by ORAL route every 6 hours; 18 tablet; Refills: 0, Product rt Selection Permitted - Carafate 1 gram Oral Tablet - take 1 tablet by ORAL route 4 times per day; 30 tablet; Refills: 0, Product rt Selection Permitted - Protonix 40 mg Oral Tablet - take 1 tablet by ORAL route once daily; 30 tablet; Refills: 0, Product rt Selection Permitted - Lactulose 10 gram/15 mL Oral Solution - take 30 milliliters by ORAL route once daily; 300 milliliter; Refills: 0, rt Product Selection Permitted - dicyclomine 10 mg Oral Capsule - take 1 capsule by ORAL route 4 times per day; 18 capsule; Refills: 0, Product rt Selection Permitted Signatures: Dispatcher [employer] Margie Sorto, PUG MILL OPERATOR-C PUG MILL OPERATOR-Carlita Jo, RN RN lg3 Robbi Rosales RN RN ll3 Robbin Li MD MD rt
--- NOTE | 2023-01-30 03:06 | ER ---
Nurse's Notes [facility] Name: Altaf Perez Age: 32 yrs Sex: Male : 1990 Arrival Date: 01/30/2023 Time: :13 Bed 14 Private MD: Diagnosis: Acute gastritis without bleeding;Constipation Presentation: 01/30 01:32 Chief complaint: Patient states: C/o abdominal pain 3/10, nausea, and dizziness. lg3 Coronavirus screen: Vaccine status: Patient reports receiving the 2nd dose of the covid vaccine. muscle pain, nausea. Ebola Screen: No symptoms or risks identified at this time. Initial Sepsis Screen: Does the patient meet any 2 criteria? HR > 90 bpm. Yes Does the patient have a suspected source of infection? No. Patient's initial sepsis screen is negative. Risk Assessment: Do you want to hurt yourself or someone else? Patient reports no desire to harm self or others. Onset of symptoms was January 29, 2023. Care prior to arrival: Medication(s) given: Tums and pepto. 01:32 Method Of Arrival: Ambulatory lg3 01:32 Acuity: CHRISTIANA 3 lg3 Triage Assessment: 01:34 General: Appears uncomfortable, Behavior is calm, cooperative. Pain: Complains of pain lg3 in abdomen Pain does not radiate. Pain currently is 3 out of 10 on a pain scale. Quality of pain is described as pressure, Pain began 2 hours ago. Is continuous. GI: Abdomen is round non-distended, Reports lower abdominal pain, upper abdominal pain, nausea. Derm: Skin is pink, warm \T\ dry. Historical: - Allergies: 01:34 No Known Allergies; lg3 - Home Meds: 01:34 Novolog U-100 Insulin aspart Sub-Q [Active]; lg3 - PMHx: 01:34 Hypercholesterolemia; IDDM; lg3 - PSHx: 01:34 None; lg3 - Immunization history:: Client reports receiving the 2nd dose of the Covid vaccine. - Social history:: Smoking status: Reported history of juuling and/or vaping. Screenin:36 Abuse screen: Denies threats or abuse. Denies injuries from another. Nutritional lg3 screening: No deficits noted. Tuberculosis screening: No symptoms or risk factors identified. 03:17 [facility] ED Fall Risk Assessment (Adult) History of falling in the last 3 months, ll3 including since admission No falls in past 3 months (0 pts) Confusion or Disorientation No (0 pts) Intoxicated or Sedated No (0 pts) Impaired Gait No (0 pts) Mobility Assist Device Used No (0 pt) Altered Elimination No (0 pt) Score/Fall Risk Level 0 - 2 = Low Risk Oriented to surroundings, Maintained a safe environment, Educated pt \T\ family on fall prevention, incl call for assistance when getting out of bed. Assessment: 01:34 General: See triage assessment. ll3 03:17 Reassessment: Patient and/or family updated on plan of care and expected duration. Pain ll3 level reassessed. Patient is alert, oriented x 3, equal unlabored respirations, skin warm/dry/pink. Patient states feeling better. Patient states symptoms have improved. Vital Signs: 01:32 BP 117 / 82; Pulse 94; Resp 18; Temp 98.9(O); Pulse Ox 100% on R/A; Weight 81.65 kg; lg3 Height 5 ft. 11 in. ; Pain 3/10; 03:17 BP 107 / 76; Pulse 68; Resp 16; Pulse Ox 99% on R/A; ll3 01:32 Body Mass Index 25.10 (81.65 kg, 180.34 cm) lg3 01:32 Pain Scale: Adult lg3 ED Course: 01:15 Patient arrived in ED. ja2 01:28 Margie Sosa FNP-C [facility]. kb 01:28 Robbin Li MD is Attending Physician. kb 01:34 Triage completed. lg3 01:34 Arm band placed on Patient placed in an exam room, on a stretcher, on pulse oximetry. lg3 01:40 Patient has correct armband on for positive identification. Placed in gown. Bed in low ll3 position. Call light in reach. Side rails up X 1. Adult w/ patient. 02:18 Abdomen Limited US In Process Unspecified. EDMS 03:16 No provider procedures requiring assistance completed. IV discontinued, intact, ll3 bleeding controlled, No redness/swelling at site. Pressure dressing applied. Administered Medications: 01:59 Drug: NS 0.9% IV 1000 ml Route: IV; Rate: 1 bolus; Site: right antecubital; ll3 03:15 Follow up: Response: No adverse reaction; IV Status: Completed infusion; IV Intake: ll3 1000ml 01:59 Drug: TORadol - Ketorolac IVP 15 mg Route: IVP; Site: right antecubital; ll3 03:16 Follow up: Response: No adverse reaction; Marked relief of symptoms ll3 01:59 Drug: Ondansetron IVP 4 mg Route: IVP; Site: right antecubital; ll3 03:16 Follow up: Response: No adverse reaction; Marked relief of symptoms ll3 02:00 Drug: Famotidine IVP 20 mg Route: IVP; Site: right antecubital; ll3 03:15 Follow up: Response: No adverse reaction; Marked relief of symptoms ll3 Medication: 03:17 VIS not applicable for this client. ll3 Intake: 03:15 IV: 1000ml; Total: 1000ml. ll3 Outcome: 03:05 Discharge ordered by . rt 03:16 Discharged to home ambulatory, with significant other. ll3 03:16 Condition: stable 03:16 Discharge instructions given to patient, significant other, Instructed on discharge instructions, follow up and referral plans. medication usage, Demonstrated understanding of instructions, follow-up care, medications, Prescriptions given X 5 03:18 Patient left the ED. ll3 Signatures: Dispatcher [employer] EDMargie Zhang, EVA TRACEY-Carlita Jo RN RN lg3 Regine Jean Lynsea, RN RN ll3 Robbin Li MD MD rt
[2023-01-30 03:48] VITALS: TEMP 98.9
[2023-01-30 03:49] VITALS: BP 107/76; O2SAT 99
--- NOTE | 2023-01-30 21:34 | RAD REPORT ---
EXAM DESCRIPTION: US - Abdomen Exam Limited - 01/30/2023 2:19 am CLINICAL HISTORY: The patient is 32 years old and is Male; ABD PAIN TECHNIQUE: Real-time ultrasound of the right upper quadrant with image documentation. COMPARISON: CT abdomen pelvis October 28, 2022. FINDINGS: Gallbladder: No cholelithiasis or sludge. Gallbladder wall thickness 2.2 mm. No pericholecystic fluid. Common bile duct: Common bile duct 3.5 mm in diameter. No stones. No dilation. Pancreas: Unremarkable as visualized. IMPRESSION: No cholelithiasis or sludge. Electronically signed by: Bernadette Ayers MD 01/30/2023 5:13 AM CDT Due to temporary technical issues with the PACS/Fluency reporting system, reports are being signed by the in house radiologists without review as a courtesy to insure prompt reporting. The interpreting radiologist is fully responsible for the content of the report.
== END 2023-01-30 03:18 | disposition home or self-care (01) ==
LOC: ER 01:13
DX: K29.00 Acute gastritis without bleeding (principal); K59.00 Constipation, unspecified
CPT/HCPCS: 36415; 76705; 80053; 82947; 83690; 85025; 96361; 96374; 96375; 99284; J2405; J7030

== ENCOUNTER 2023-02-04 02:29 | Emergency (ER) | payer SELFPAY ==
--- OUTSIDE RECORDS SUMMARY | 2023-02-04 02:32 | XMS REPORT | Continuity of Care Document ---
:1990 Author Organization [facility] t Address [address] [facility] [address] [place] [address] Care Team Providers Name Role Phone Bina Ochoa Primary Care Physician [phone] Problems This patient has no known problems. [...] Goal Plan of Care Note [code = 31164-3] Goal Plan of Care Note [code = 65624-7] Goal Plan of Care Note [code = 66771-2] Goal Plan of Care Note [code = 92380-6] Goal Plan of Care Note [code = 95485-0] Goal Plan of Care Note [code = 66657-9] Goal Plan of Care Note [code = 52550-5] Goal Plan of Care Note [code = 29915-7] Goal Plan of Care Note [code = 24400-0] Goal Plan of Care Note [code = 32723-9] Goal Plan of Care Note [code = 30337-9] Goal Plan of Care Note [code = 35749-9] Goal Plan of Care Note [code = 21960-8] Goal Plan of Care Note [code = 57782-4] Goal Plan of Care Note [code = 95476-2] Goal Plan of Care Note [code = 38789-2] Goal Plan of Care Note [code = 25299-7] Goal Plan of Care Note [code = 84302-2] Goal Plan of Care Note [code = 28521-3] Goal Plan of Care Note [code = 84566-0] Goal Plan of Care Note [code = 12908-7] Goal Plan of Care Note [code = 36563-6] Goal Plan of Care Note [code = 90277-4] Goal Plan of Care Note [code = 46757-9] Goal Plan of Care Note [code = 38052-7] Goal Plan of Care Note [code = 86792-4] Goal Plan of Care Note [code = 10691-4] Goal Plan of Care Note [code = 99927-1] Goal Plan of Care Note [code = 06457-2] Goal Plan of Care Note [code = 85753-2] Goal Plan of Care Note [code = 11565-0] Goal Plan of Care Note [code = 04724-8] Goal Plan of Care Note [code = 25166-3] Goal Plan of Care Note [code = 75600-3] Goal Plan of Care Note [code = 39615-3] Goal Plan of Care Note [code = 37380-9] Goal Plan of Care Note [code = 63637-7] Goal Plan of Care Note [code = 11778-3] Goal Plan of Care Note [code = 30256-1] Goal Plan of Care Note [code = 37159-0] Goal Plan of Care Note [code = 08831-5] Goal Plan of Care Note [code = 77260-9] Goal Plan of Care Note [code = 87900-6] Goal Plan of Care Note [code = 76252-5] Goal Plan of Care Note [code = 28011-9] Goal Plan of Care Note [code = 37125-7] Goal Plan of Care Note [code = 93095-3] Goal Plan of Care Note [code = 05870-4] Goal Plan of Care Note [code = 92130-7] Goal Plan of Care Note [code = 15835-9] Goal Plan of Care Note [code = 44958-2] Goal Plan of Care Note [code = 97511-2] Goal Plan of Care Note [code = 56535-0] Encounters Start End Encounter Admission Attending Care Care Encounter Source Date/Time Date/Time Type Type Clinicians Facility Department ID 2023-01-08 2023-01-08 Outpatient SFA SFA [id number]- Johann 11:43:52 11:43:52 [id number] F Dylon 2022-12-20 2022-12-20 Outpatient SFA SFA [id number]- Johann 11:32:16 11:32:16 [id number] F Dylon 2022-12-19 2022-12-19 Outpatient SFA SFA [id number] Johann 13:34:58 13:34:58 09549 F [place] 2022-11-07 2022-11-07 Outpatient SFA SFA [id number]- Johann 09:41:09 09:41:09 [id number] F [place] 2022-10-26 2022-10-26 Outpatient SFA SFA [id number]- Johann 10:43:17 10:43:17 [id number] F [place] 2022-08-02 2022-08-02 Outpatient SFA SFA [id number]- Johann 13:36:36 13:36:36 53710 F [place] 2022-08-02 2022-08-02 Outpatient [id number] 00:00:00 00:00:00 Visit s8sc-91lz 3eb-45ef-a -d5ps-1f4 6bc-9h202l 45rcw5543 xx8838 2022-06-27 2022-06-27 Outpatient SFA SFA [id number]- 202 Johann 14:28:49 14:28:49 28375 F [place] 2022-06-27 2022-06-27 Outpatient [id number]- [id number] e12f6i-p 00:00:00 00:00:00 Visit sz99-00xk r73-14kt-b -ms80-ym0 g84-kn102f 26rw52tnk d31cbc 2022-05-30 2022-05-30 Outpatient [id number]- [id number] [id number]-i 00:00:00 00:00:00 Visit d589-3095 467-4492-8 -06m1-4ps 5b8-9miyg7 py90j3td8 6f0de3 2022-05-24 2022-05-24 Outpatient SFA SFA [id number]- 202 Johann 13:25:23 13:25:23 93018 F [place] 2022-05-24 2022-05-24 Outpatient [id number] 00:00:00 00:00:00 Visit 8n34-9k17 g60-2y00-3 -8616-bb7 616-bb7bb5 ut20de186 8tm714 2022-05-17 2022-05-17 Outpatient t8j7oh17- [id number] [id number] p3er62-8 00:00:00 00:00:00 Visit 89b5-5wr3 9c6-1so6-0 -3y4j-ucy i6t-fmks93 c37lrrspd ecbfaa 2022-04-26 2022-04-26 Outpatient 2n516o3y- [id number] 106n4z-h 00:00:00 00:00:00 Visit r26t-18cu 91d-41dc-9 -9142-545 142-545c34 r93if5885 ez7655 Results Test Description Test Time Test Comments Results Result Comments Source HEMOGLOBIN A1c 2022-10-27 02:13:26 Test Item Value Reference Range Interpretation Comme nts HEMOGLOBIN A1c (test 9.6 % 4.2-5.6 H [employer] GUIDELINES FOR code = 60058) HGB A1C: PREDI ABETES/INCREASED RISK . . [...] ALTERN ATE TESTING OR LABORATORY CONSULTATION. * [facility] has important pathology staff changes e ffective 10/18/2022. New pathology staff will provide uninterrupted, excellent patie nt care and clinical consultation. S ee URL: [email or web address]. UNLESS OTHERWISE INDIC ATED, ALL TESTING PERFORMED AT [facility] [employer] [address] [place] [address] INSURANCE CLAIMS ANALYST: ALEX ELIAS M.D. [place] NUMBER [id number] [place]. [id number] CULTURE, [id number] 16:24:13SPECIMEN NUMBER: [id number] CULTURE, URINE SPECIMEN NUMBER: [id number] SPECIMEN COMMENT: URINE SOURCE: URINE REPORT STATUS: [...] CULTURE, URINE (test SPECIMEN NUMBER: code = 33636) [id number] CULTURE, [id number] 00:00:00 Test Item Value Reference Range Interpretation Comments CULTURE, URINE (test SPECIMEN NUMBER: code = 88902) [id number] CULTURE, [id number] 00:00:00 Test Item Value Reference Range Interpretation Comments CULTURE, URINE (test SPECIMEN NUMBER: code = 52649) [id number] CULTURE, [id number] 00:00:00 Test Item Value Reference Range Interpretation Comments CULTURE, URINE (test SPECIMEN NUMBER: code = 32166) [id number] CULTURE, [id number] 00:00:00 Test Item Value Reference Range Interpretation Comments CULTURE, URINE (test SPECIMEN NUMBER: code = 54060) [id number] CULTURE, [id number] 00:00:00 Test Item Value Reference Range Interpretation Comments CULTURE, URINE (test SPECIMEN NUMBER: code = 55189) [id number] CULTURE, [id number] 00:00:00 Test Item Value Reference Range Interpretation Comments CULTURE, URINE (test SPECIMEN NUMBER: code = 86718) [id number] CULTURE, [id number] 00:00:00 Test Item Value Reference Range Interpretation Comments CULTURE, URINE (test SPECIMEN NUMBER: code = 82391) [id number] CT/NG, NAAT, [id number] 19:07:28 Test Item Value Reference Range Interpretation Comments GONORRHEA, NAAT NEGATIVE NEGATIVE IMPORTA NT NOTICE: SEE (test code = [place] [address]) [email or web address] Note: Assay methodology is nucleic acid amplification b y traffic coordinator mediated amplification ( TMA) utilizing the A ptima Combo 2 Assay. CHLAMYDIA, NAAT NEGATIVE NEGATIVE IMPORTA NT NOTICE: SEE (test code = [place] [address]) [email or web address] Information TechnologyKit Note: Assay methodology is nucleic acid amplification b y traffic coordinator mediated amplification ( TMA) utilizing the A ptima Combo 2 Assay. UNLESS OTHERWISE INDICATED, ALL TESTING PERFORMED [facility] PATH[facility]Y [facility]. [address] [place] [id number] [place] [address] DIRECTOR: KUSHAL AGUSTIN M.D. CLIA NUMBER [id number] CAP ACCREDITATION N O. [id number] CT/NG, TMA, [id number] 00:00:00 Test Item Value Reference Range Interpretation Comments GONORRHEA, NAAT (test code = 73899) NEGATIVE CHLAMYDIA, NAAT (test code = 28193) NEGATIVE CT/NG, TMA, [id number] 00:00:00 Test Item Value Reference Range Interpretation Comments GONORRHEA, NAAT (test code = 16983) NEGATIVE CHLAMYDIA, NAAT (test code = 05099) NEGATIVE CT/NG, TMA, [id number] 00:00:00 Test Item Value Reference Range Interpretation Comments GONORRHEA, NAAT (test code = 98176) NEGATIVE CHLAMYDIA, NAAT (test code = 34352) NEGATIVE CT/NG, TMA, [id number] 00:00:00 Test Item Value Reference Range Interpretation Comments GONORRHEA, NAAT (test code = 68521) NEGATIVE CHLAMYDIA, NAAT (test code = 76223) NEGATIVE CT/NG, TMA, [id number] 00:00:00 Test Item Value Reference Range Interpretation Comments GONORRHEA, NAAT (test code = 52472) NEGATIVE CHLAMYDIA, NAAT (test code = 79206) NEGATIVE CT/NG, TMA, [id number] 00:00:00 Test Item Value Reference Range Interpretation Comments GONORRHEA, NAAT (test code = 14874) NEGATIVE CHLAMYDIA, NAAT (test code = 91841) NEGATIVE CT/NG, TMA, [id number] 00:00:00 Test Item Value Reference Range Interpretation Comments GONORRHEA, NAAT (test code = 63436) NEGATIVE CHLAMYDIA, NAAT (test code = 88068) NEGATIVE CT/NG, TMA, [id number] 00:00:00 Test Item Value Reference Range Interpretation Comments GONORRHEA, NAAT (test code = 36007) NEGATIVE CHLAMYDIA, NAAT (test code = 14753) NEGATIVE H. PYLORI (BREATH)2022-05-19 15:05:57 Test Item Value Reference Range Interpretation Comments H. PYLORI (BREATH) (test code = NEGATIVE NEGATIVE 74974) [id number] 04:16:31 Test Item Value Reference Range Interpretation Comments AMYLASE (test code = 2205) 37 U/L 28-100 [id number] 04:16:31 Test Item Value Reference Range Interpretation Comments LIPASE (test code = 18 U/L 13-60 UNLESS OTHERWISE 2058) INDICATED, ALL TESTING PERFORMED [facility] PATH[facility] [address] [place] [id number] [place] [address] DIRECTOR: KUSHAL AGUSTIN M.D. CLIA NUMBER [id number] CAP ACCREDITATION N O. [id number] H. PYLORI (BREATH)2022-05-19 00:00:00 Test Item Value Reference Range Interpretation Comments H. PYLORI (BREATH) (test code = NEGATIVE 73786) [id number] 00:00:00 Test Item Value Reference Range Interpretation Comments AMYLASE (test code = 2205) 37 U/L [id number] 00:00:00 Test Item Value Reference Range Interpretation Comments AMYLASE (test code = 2205) 37 U/L [id number] 00:00:00 Test Item Value Reference Range Interpretation Comments LIPASE (test code = 2057) 18 U/L [id number] 00:00:00 Test Item Value Reference Range Interpretation Comments LIPASE (test code = 2057) 18 U/L [id number] 00:00:00 Test Item Value Reference Range Interpretation Comments LIPASE (test code = 2057) 18 U/L H. PYLORI (BREATH)2022-05-19 00:00:00 Test Item Value Reference Range Interpretation Comments H. PYLORI (BREATH) (test code = NEGATIVE 64782) H. PYLORI (BREATH)2022-05-19 00:00:00 Test Item Value Reference Range Interpretation Comments H. PYLORI (BREATH) (test code = NEGATIVE 63274) [id number] 00:00:00 Test Item Value Reference Range Interpretation Comments AMYLASE (test code = 2204) 37 U/L [id number] 00:00:00 Test Item Value Reference Range Interpretation Comments AMYLASE (test code = 2204) 37 U/L [id number] 00:00:00 Test Item Value Reference Range Interpretation Comments LIPASE (test code = 2057) 18 U/L [id number] 00:00:00 Test Item Value Reference Range Interpretation Comments LIPASE (test code = 2057) 18 U/L [id number] 00:00:00 Test Item Value Reference Range Interpretation Comments LIPASE (test code = 2057) 18 U/L H. PYLORI (BREATH)2022-05-19 00:00:00 Test Item Value Reference Range Interpretation Comments H. PYLORI (BREATH) (test code = NEGATIVE 84882) H. PYLORI (BREATH)2022-05-19 00:00:00 Test Item Value Reference Range Interpretation Comments H. PYLORI (BREATH) (test code = NEGATIVE 85547) [id number] 00:00:00 Test Item Value Reference Range Interpretation Comments AMYLASE (test code = 2205) 37 U/L [id number] 00:00:00 Test Item Value Reference Range Interpretation Comments AMYLASE (test code = 2205) 37 U/L [id number] 00:00:00 Test Item Value Reference Range Interpretation Comments LIPASE (test code = 2057) 18 U/L [id number] 00:00:00 Test Item Value Reference Range Interpretation Comments LIPASE (test code = 2057) 18 U/L [id number] 00:00:00 Test Item Value Reference Range Interpretation Comments LIPASE (test code = 2057) 18 U/L H. PYLORI (BREATH)2022-05-19 00:00:00 Test Item Value Reference Range Interpretation Comments H. PYLORI (BREATH) (test code = NEGATIVE 57717) H. PYLORI (BREATH)2022-05-19 00:00:00 Test Item Value Reference Range Interpretation Comments H. PYLORI (BREATH) (test code = NEGATIVE 37598) [id number] 00:00:00 Test Item Value Reference Range Interpretation Comments AMYLASE (test code = 2204) 37 U/L [id number] 00:00:00 Test Item Value Reference Range Interpretation Comments AMYLASE (test code = 2204) 37 U/L [id number] 00:00:00 Test Item Value Reference Range Interpretation Comments LIPASE (test code = 2057) 18 U/L [id number] 00:00:00 Test Item Value Reference Range Interpretation Comments LIPASE (test code = 2057) 18 U/L [id number] 00:00:00 Test Item Value Reference Range Interpretation Comments LIPASE (test code = 2057) 18 U/L H. PYLORI (BREATH)2022-05-19 00:00:00 Test Item Value Reference Range Interpretation Comments H. PYLORI (BREATH) (test code = NEGATIVE 84102) HEMOGLOBIN [id number] 23:37:11 Test Item Value Reference Range Interpretation Comments HEMOGLOBIN A1c (test 10.4 % 4.2-5.6 H [employer] DIABETES code = 82463) ASSOCIATION IDELINES FOR HGB A1C: PREDIABETES/INC REASED [...] INDICATED, ALL TESTING PER FORMED ATCLINICAL PATH [facility] [place] [address] [place] [address] LABORATORY DIRE CTOR: Lelo SOLOMON. CLIA NUMBER [id number] CAP ACCREDITATION N O. [id number] COMPREHENSIVE METABOLIC [id number] 06:29:07 Test Item Value Reference Range Interpretation Comments GLUCOSE (test code = 264 MG/DL 70-99 H 2216) BUN (test code = 9 MG/DL 6-20 2207) CREATININE (test 0.68 MG/DL 0.80-1.40 L code = 2214) eGFR (2020 CKD-EPI) 127 >60 (test code = 52123) ML/MIN/1.73 CALC BUN/CREAT (test 13 RATIO 6-28 code = 2235) SODIUM (test code = 143 MEQ/L 100-621 0729) POTASSIUM (test code 4.6 MEQ/L 3.5-5.4 = [...] code = 20 U/L 5-50 2218) LIPID [id number] 06:29:07 Test Item Value Reference Range Interpretation [...] MOREINFORMATION , SEE CLIENT ANNOUNCE MENT AT [email or web address] RISK RATIO LDL/HDL 2.95 RATIO <3.55 (test code = 2238) COMPREHENSIVE METABOLIC [id number] 00:00:00 Test Item Value Reference Range Interpretation Comments GLUCOSE (test code = 2217) 264 MG/DL BUN (test code = 2208) 9 MG/DL CREATININE (test code = 2214) 0.68 MG/DL eGFR (2020 CKD-EPI) (test 127 ML/MIN/1.73 code = 30649) CALC BUN/CREAT (test code = 13 RATIO [...] (test code = 2219) 20 U/L LIPID [id number] 00:00:00 Test Item Value Reference Range Interpretation Comments CHOLESTEROL (test code = 2210) 172 MG/DL TRIGLYCERIDES (test code = 2232) 84 MG/DL HDL CHOLESTEROL (test code = 2220) 39 MG/DL CALC LDL CHOL (test code = 2237) 115 MG/DL RISK RATIO LDL/HDL (test code = 2.95 RATIO 2238) LIPID [id number] 00:00:00 Test Item Value Reference Range Interpretation Comments CHOLESTEROL (test code = 2210) 172 MG/DL TRIGLYCERIDES (test code = 2232) 84 MG/DL HDL CHOLESTEROL (test code = 2220) 39 MG/DL CALC LDL CHOL (test code = 2237) 115 MG/DL RISK RATIO LDL/HDL (test code = 2.95 RATIO 2238) HEMOGLOBIN [id number] 00:00:00 Test Item Value Reference Range Interpretation Comments HEMOGLOBIN A1c (test code = 96834) 10.4 % HEMOGLOBIN [id number] 00:00:00 Test Item Value Reference Range Interpretation Comments HEMOGLOBIN A1c (test code = 64176) 10.4 % HEMOGLOBIN [id number] 00:00:00 Test Item Value Reference Range Interpretation Comments HEMOGLOBIN A1c (test code = 23844) 10.4 % COMPREHENSIVE METABOLIC [id number] 00:00:00 Test Item Value Reference Range Interpretation Comments GLUCOSE (test code = 2217) 264 MG/DL BUN (test code = 2208) 9 MG/DL CREATININE (test code = 2214) 0.68 MG/DL eGFR (2020 CKD-EPI) (test 127 ML/MIN/1.73 code = 48329) CALC BUN/CREAT (test code = 13 RATIO [...] code = 2219) 20 U/L COMPREHENSIVE METABOLIC [id number] 00:00:00 Test Item Value Reference Range Interpretation Comments GLUCOSE (test code = 2217) 264 MG/DL BUN (test code = 2208) 9 MG/DL CREATININE (test code = 2214) 0.68 MG/DL eGFR (2020 CKD-EPI) (test 127 ML/MIN/1.73 code = 86209) CALC BUN/CREAT (test code = 13 RATIO [...] (test code = 2219) 20 U/L LIPID [id number] 00:00:00 Test Item Value Reference Range Interpretation Comments CHOLESTEROL (test code = 2210) 172 MG/DL TRIGLYCERIDES (test code = 2232) 84 MG/DL HDL CHOLESTEROL (test code = 2220) 39 MG/DL CALC LDL CHOL (test code = 2237) 115 MG/DL RISK RATIO LDL/HDL (test code = 2.95 RATIO 2238) LIPID [id number] 00:00:00 Test Item Value Reference Range Interpretation Comments CHOLESTEROL (test code = 2210) 172 MG/DL TRIGLYCERIDES (test code = 2232) 84 MG/DL HDL CHOLESTEROL (test code = 2220) 39 MG/DL CALC LDL CHOL (test code = 2237) 115 MG/DL RISK RATIO LDL/HDL (test code = 2.95 RATIO 2238) HEMOGLOBIN [id number] 00:00:00 Test Item Value Reference Range Interpretation Comments HEMOGLOBIN A1c (test code = 54823) 10.4 % HEMOGLOBIN [id number] 00:00:00 Test Item Value Reference Range Interpretation Comments HEMOGLOBIN A1c (test code = 11600) 10.4 % HEMOGLOBIN [id number] 00:00:00 Test Item Value Reference Range Interpretation Comments HEMOGLOBIN A1c (test code = 38949) 10.4 % COMPREHENSIVE METABOLIC [id number] 00:00:00 Test Item Value Reference Range Interpretation Comments GLUCOSE (test code = 2217) 264 MG/DL BUN (test code = 2208) 9 MG/DL CREATININE (test code = 2214) 0.68 MG/DL eGFR (2020 CKD-EPI) (test 127 ML/MIN/1.73 code = 67399) CALC BUN/CREAT (test code = 13 RATIO [...] code = 2219) 20 U/L COMPREHENSIVE METABOLIC [id number] 00:00:00 Test Item Value Reference Range Interpretation Comments GLUCOSE (test code = 2217) 264 MG/DL BUN (test code = 2208) 9 MG/DL CREATININE (test code = 2214) 0.68 MG/DL eGFR (2020 CKD-EPI) (test 127 ML/MIN/1.73 code = 75491) CALC BUN/CREAT (test code = 13 RATIO [...] (test code = 2219) 20 U/L LIPID [id number] 00:00:00 Test Item Value Reference Range Interpretation Comments CHOLESTEROL (test code = 2210) 172 MG/DL TRIGLYCERIDES (test code = 2232) 84 MG/DL HDL CHOLESTEROL (test code = 2220) 39 MG/DL CALC LDL CHOL (test code = 2237) 115 MG/DL RISK RATIO LDL/HDL (test code = 2.95 RATIO 2238) LIPID [id number] 00:00:00 Test Item Value Reference Range Interpretation Comments CHOLESTEROL (test code = 2210) 172 MG/DL TRIGLYCERIDES (test code = 2232) 84 MG/DL HDL CHOLESTEROL (test code = 2220) 39 MG/DL CALC LDL CHOL (test code = 2237) 115 MG/DL RISK RATIO LDL/HDL (test code = 2.95 RATIO 2238) HEMOGLOBIN [id number] 00:00:00 Test Item Value Reference Range Interpretation Comments HEMOGLOBIN A1c (test code = 16318) 10.4 % HEMOGLOBIN [id number] 00:00:00 Test Item Value Reference Range Interpretation Comments HEMOGLOBIN A1c (test code = 29080) 10.4 % HEMOGLOBIN [id number] 00:00:00 Test Item Value Reference Range Interpretation Comments HEMOGLOBIN A1c (test code = 36698) 10.4 % COMPREHENSIVE METABOLIC [id number] 00:00:00 Test Item Value Reference Range Interpretation Comments GLUCOSE (test code = 2217) 264 MG/DL BUN (test code = 2208) 9 MG/DL CREATININE (test code = 2214) 0.68 MG/DL eGFR (2020 CKD-EPI) (test 127 ML/MIN/1.73 code = 68044) CALC BUN/CREAT (test code = 13 RATIO [...] code = 2219) 20 U/L COMPREHENSIVE METABOLIC [id number] 00:00:00 Test Item Value Reference Range Interpretation Comments GLUCOSE (test code = 2217) 264 MG/DL BUN (test code = 2208) 9 MG/DL CREATININE (test code = 2214) 0.68 MG/DL eGFR (2020 CKD-EPI) (test 127 ML/MIN/1.73 code = 10762) CALC BUN/CREAT (test code = 13 RATIO [...] (test code = 2219) 20 U/L LIPID [id number] 00:00:00 Test Item Value Reference Range Interpretation Comments CHOLESTEROL (test code = 2210) 172 MG/DL TRIGLYCERIDES (test code = 2232) 84 MG/DL HDL CHOLESTEROL (test code = 2220) 39 MG/DL CALC LDL CHOL (test code = 2237) 115 MG/DL RISK RATIO LDL/HDL (test code = 2.95 RATIO 2238) LIPID [id number] 00:00:00 Test Item Value Reference Range Interpretation Comments CHOLESTEROL (test code = 2210) 172 MG/DL TRIGLYCERIDES (test code = 2232) 84 MG/DL HDL CHOLESTEROL (test code = 2220) 39 MG/DL CALC LDL CHOL (test code = 2237) 115 MG/DL RISK RATIO LDL/HDL (test code = 2.95 RATIO 2238) HEMOGLOBIN [id number] 00:00:00 Test Item Value Reference Range Interpretation Comments HEMOGLOBIN A1c (test code = 94920) 10.4 % HEMOGLOBIN [id number] 00:00:00 Test Item Value Reference Range Interpretation Comments HEMOGLOBIN A1c (test code = 34310) 10.4 % HEMOGLOBIN [id number] 00:00:00 Test Item Value Reference Range Interpretation Comments HEMOGLOBIN A1c (test code = 27386) 10.4 % COMPREHENSIVE METABOLIC [id number] 00:00:00 Test Item Value Reference Range Interpretation Comments GLUCOSE (test code = 2217) 264 MG/DL BUN (test code = 2208) 9 MG/DL CREATININE (test code = 2214) 0.68 MG/DL eGFR (2020 CKD-EPI) (test 127 ML/MIN/1.73 code = 49602) CALC BUN/CREAT (test code = 13 RATIO [...] code = 2219) 20 U/L COMPREHENSIVE METABOLIC [id number] 00:00:00 Test Item Value Reference Range Interpretation Comments GLUCOSE (test code = 2217) 264 MG/DL BUN (test code = 2208) 9 MG/DL CREATININE (test code = 2214) 0.68 MG/DL eGFR (2020 CKD-EPI) (test 127 ML/MIN/1.73 code = 51189) CALC BUN/CREAT (test code = 13 RATIO [...] (test code = 2219) 20 U/L LIPID [id number] 00:00:00 Test Item Value Reference Range Interpretation Comments CHOLESTEROL (test code = 2210) 172 MG/DL TRIGLYCERIDES (test code = 2232) 84 MG/DL HDL CHOLESTEROL (test code = 2220) 39 MG/DL CALC LDL CHOL (test code = 2237) 115 MG/DL RISK RATIO LDL/HDL (test code = 2.95 RATIO 2238) LIPID [id number] 00:00:00 Test Item Value Reference Range Interpretation Comments CHOLESTEROL (test code = 2210) 172 MG/DL TRIGLYCERIDES (test code = 2232) 84 MG/DL HDL CHOLESTEROL (test code = 2220) 39 MG/DL CALC LDL CHOL (test code = 2237) 115 MG/DL RISK RATIO LDL/HDL (test code = 2.95 RATIO 2238) HEMOGLOBIN [id number] 00:00:00 Test Item Value Reference Range Interpretation Comments HEMOGLOBIN A1c (test code = 83032) 10.4 % HEMOGLOBIN [id number] 00:00:00 Test Item Value Reference Range Interpretation Comments HEMOGLOBIN A1c (test code = 67436) 10.4 % HEMOGLOBIN [id number] 00:00:00 Test Item Value Reference Range Interpretation Comments HEMOGLOBIN A1c (test code = 11204) 10.4 % COMPREHENSIVE METABOLIC [id number] 00:00:00 Test Item Value Reference Range Interpretation Comments GLUCOSE (test code = 2217) 264 MG/DL BUN (test code = 2208) 9 MG/DL CREATININE (test code = 2214) 0.68 MG/DL eGFR (2020 CKD-EPI) (test 127 ML/MIN/1.73 code = 73404) CALC BUN/CREAT (test code = 13 RATIO [...]
[2023-02-04 03:01] LABS: Absolute Lymphocytes (CBC) 1.9 K/uL (0.7-4.9); Hematocrit 39.6 % (39.6-49.0); Lymphocytes % 27.5 % (15.3-44.8); MCV 88.8 fL (80-100); MPV 8.5 fL (7.6-11.3); RBC Red Blood Cell Count 4.46 M/uL (4.33-5.43)
[2023-02-04] MEDS ORDERED: PROMETHAZINE INJ 25 MG/ML AMP ONE (03:03)
[2023-02-04] MEDS ORDERED: MORPHINE 4 MG/ML SYR ONE (03:03)
[2023-02-04] MEDS ORDERED: NA CHLORIDE 0.9% 1,000 ML ONE ×2 (03:03→04:57)
[2023-02-04 03:16] LABS: Albumin 3.8 g/dL (3.4-5.0); Bilirubin Total 0.3 mg/dL (0.2-1.0); Potassium 3.5 mEq/L (3.5-5.1); Protein, Total 7.9 g/dL (6.4-8.2)
[2023-02-04] MEDS ORDERED: METOCLOPRAMIDE 10 MG/2mL INJ ONE (04:57)
[2023-02-04 05:37] LABS: SARS-CoV-2 Antigen Rapid Res Negative (Negative)
--- NOTE | 2023-02-04 07:02 | EDPHYS ---
Physician Documentation [facility] Name: Altaf Perez Age: 32 yrs Sex: Male : 1990 Arrival Date: 02/04/2023 Time: 02:29 Bed 16 Private MD: ED Physician Ravindra Ray HPI: 02/04 04:30 This 32 yrs old Male presents to ER via Ambulatory with complaints of sp4 Abdominal Pain, Nausea, Dizziness. 04:37 Patient with history of type 1 diabetes presents with worsening dizziness, abdominal sp4 pain and nausea for 1 week. . 06:54 Patient's and child also developed nausea vomiting patient's is developed sp4 diarrhea, patient's son developed abdominal ache. . 06:56 Patient was here on 01/30/2023 for basically the same symptoms and was prescribed sp4 ondansetron, Bentyl, Carafate. Historical: - Allergies: 02:43 No Known Allergies; as6 - Home Meds: 07:11 Novolog U-100 Insulin aspart Sub-Q [Active]; sg5 - PMHx: 02:43 IDDM; Hypercholesterolemia; as6 - PSHx: 02:43 None; as6 - Immunization history:: Client reports receiving the 2nd dose of the Covid vaccine, pfizer. - Social history:: Smoking status: Reported history of juuling and/or vaping. - Family history:: not pertinent. ROS: 06:56 Constitutional: Negative for fever, chills, and weight loss, Eyes: Negative for injury, sp4 pain, redness, and discharge, ENT: Negative for injury, pain, and discharge, Neck: Negative for injury, pain, and swelling, Cardiovascular: Negative for chest pain, palpitations, and edema, Respiratory: Negative for shortness of breath, cough, wheezing, and pleuritic chest pain, Abdomen/GI: Negative for diarrhea, and constipation, positive for nausea, vomiting, abdominal pain and dizziness Back: Negative for injury and pain, : Negative for injury, bleeding, discharge, and swelling, MS/Extremity: Negative for injury and deformity, Skin: Negative for injury, rash, and discoloration, Neuro: Negative for headache, weakness, numbness, tingling, and seizure, Psych: Negative for depression, anxiety, Allergy/Immunology: Negative for hives, rash, and allergies Endocrine: Negative for neck swelling, polydipsia, polyuria, polyphagia, and weight changes Hematologic/Lymphatic: Negative for swollen nodes, abnormal bleeding, and unusual bruising Exam: 06:56 Constitutional: This is a well developed, well nourished patient who is awake, alert, sp4 and in no acute distress. Head/Face: Normocephalic, atraumatic. Eyes: Pupils equal round and reactive to light, extra-ocular motions intact. Lids and lashes normal. Conjunctiva and sclera are not injected. Cornea within normal limits. Periorbital areas with no swelling, redness, or edema. ENT: Nares patent. No nasal discharge, no septal abnormalities noted. Tympanic membranes are normal and external auditory canals are clear. Oropharynx with no redness, swelling, or masses, exudates, or evidence of obstruction, uvula midline. Mucous membranes moist. Neck: Trachea midline, no thyromegaly or masses palpated, and no cervical lymphadenopathy. Supple, full range of motion without nuchal rigidity, or vertebral point tenderness. Chest/axilla: Normal chest wall appearance and motion. Nontender with no deformity. No lesions are appreciated. Cardiovascular: Regular rate and rhythm with a normal S1 and S2. No gallops, murmurs, or rubs. Normal PMI, no JVD. No pulse deficits. Respiratory: Lungs have equal breath sounds bilaterally, clear to auscultation and percussion. No rales, rhonchi or wheezes noted. No increased work of breathing, no retractions or nasal flaring. Abdomen/GI: Soft, non-tender, with normal bowel sounds. No distension or tympany. No guarding or rebound. No evidence of tenderness throughout. Back: No spinal tenderness. No costovertebral tenderness. Male : Normal genitalia with no discharge or lesions. Skin: Warm, dry with normal turgor. Normal color with no rashes, no lesions, and no evidence of cellulitis. MS/ Extremity: Pulses equal, no cyanosis. Neurovascular intact. Full, normal range of motion. Neuro: Awake and alert, GCS 15, oriented to person, place, time, and situation. Cranial nerves II-XII grossly intact. Motor strength 5/5 in all extremities. Sensory grossly intact. Psych: Awake, alert, with orientation to person, place and time. Behavior, mood, and affect are within normal limits Vital Signs: 02:39 BP 127 / 86; Pulse 89; Resp 18 S; Temp 99.3; Pulse Ox 99% on R/A; Weight 81.65 kg (R); as6 Height 5 ft. 11 in. (R); Pain 9/10; 03:20 BP 116 / 78; Pulse 65; Resp 17 S; Pulse Ox 98% on R/A; aa9 04:30 BP 122 / 74; Pulse 67; Resp 16 S; Pulse Ox 98% on R/A; aa9 05:30 BP 129 / 72; Pulse 62; Resp 16; Pulse Ox 97% on R/A; aa9 06:58 BP 114 / 68; Pulse 64; Resp 17; Temp 97.9; Pulse Ox 99% ; aa9 02:39 Body Mass Index 25.10 (81.65 kg, 180.34 cm) as6 02:39 Pain Scale: Adult as6 MDM: 04:35 Patient medically screened. sp4 06:56 ED course: IMPRESSION: Focal, mildly dilated, fluid-filled, left mid abdominal small sp4 bowel loop. Causes include focal ileus, early or partial small bowel obstruction, or enteritis. Electronically signed by: Tate FERRER 02/04/2023. 06:56 Differential diagnosis: Nonspecific abd pain, gastritis, pancreatitis, diverticulitis, sp4 viral gastroenteritis, gastroenteritis. Data reviewed: vital signs, nurses notes, old medical records, lab test result(s), radiologic studies. Consideration of Admission/Observation Escalation of care including admission/observation considered. ED course: Labs today reveal hyperglycemia without DKA. 07:00 ED course: Patient at this time stable to go home with prescription for Phenergan as sp4 needed for nausea. And advised to consume clear liquid diet only for the next 24 hours. Gnosis is acute viral enteritis.. 02/04 02:44 Order name: CBC with Diff; Complete Time: 04:31 02/04 02:44 Order name: CMP; Complete Time: 04:31 02/04 02:44 Order name: Lipase; Complete Time: 04:31 02/04 03:03 Order name: Glucose, Ancillary Testing; Complete Time: 04:31 EDMS 02/04 05:05 Order name: Influenza Screen (a \T\ B); Complete Time: 06:50 sp4 02/04 05:05 Order name: SARS RAPID; Complete Time: 06:50 sp4 02/04 07:08 Order name: Glucose, Ancillary Testing EDMT 02/04 03:00 Order name: CT Abd/Pelvis - IV Contrast Only as 02/04 02:44 Order name: IV Saline Lock; Complete Time: 03:02 as6 02/04 02:44 Order name: Labs collected and sent; Complete Time: 03:02 6 02/04 06:54 Order name: Accucheck Blood Glucose; Complete Time: 06:57 sp4 Administered Medications: 03:03 Drug: NS 0.9% IV 1000 ml Route: IV; Rate: 1 bolus; Site: right antecubital; as6 03:03 Drug: morphine IVP or IV 4 mg Route: IVP; Infused Over: 4 mins; Site: right antecubital;as6 03:03 Drug: Promethazine IVP 25 mg Route: IVP; Site: right antecubital; as6 05:03 Drug: NS 0.9% IV 1000 ml Route: IV; Rate: 1 bolus; Site: right antecubital; aa9 05:03 Drug: metoCLOPramide IVP 10 mg Route: IVP; Site: right antecubital; aa9 Disposition Summary: 02/04/23 07:02 Discharge Ordered Location: Home sp4 Problem: new sp4 Symptoms: have improved sp4 Condition: Stable sp4 Diagnosis - Other viral enteritis sp4 - Nausea with vomiting, unspecified sp4 - Insulin-dependent diabetes mellitus poorly controlled. With hyperglycemia sp4 Followup: sp4 - With: Private Physician - When: 7 - 10 days - Reason: Recheck today's complaints Discharge Instructions: - Discharge Summary Sheet sp4 - Viral Gastroenteritis, Adult, [id number] sp4 Prescriptions: - promethazine 25 mg Oral Tablet - take 1 tablet by ORAL route every 6 hours As needed; 30 tablet; Refills: 0, sp4 Product Selection Permitted Signatures: Dispatcher [employer] Martin Hernandez RN RN as6 Gladis Desouza RN RN aa9 Ravindra Ray MD MD sp4 Bernadette Oswald RN RN sg5
--- NOTE | 2023-02-04 07:02 | ER ---
Nurse's Notes [facility] Name: Altaf Perez Age: 32 yrs Sex: Male : 1990 Arrival Date: 02/04/2023 Time: 02:29 Bed 16 Private MD: Diagnosis: Other viral enteritis;Nausea with vomiting, unspecified;Insulin-dependent diabetes mellitus poorly controlled. With hyperglycemia Presentation: 02/04 02:39 Chief complaint: Patient states: "I've been throwing up and having stomach cramps. It's as6 been going on for about a week. I was here for the same thing a few days ago and I've been taking the medicine but it hasn't helped". Coronavirus screen: At this time, the client does not indicate any symptoms associated with coronavirus-19. Ebola Screen: No symptoms or risks identified at this time. Initial Sepsis Screen: Does the patient meet any 2 criteria? No. Patient's initial sepsis screen is negative. Does the patient have a suspected source of infection? No. Patient's initial sepsis screen is negative. Risk Assessment: Do you want to hurt yourself or someone else? Patient reports no desire to harm self or others. Onset of symptoms was January 28, 2023. 02:39 Method Of Arrival: Ambulatory as6 02:39 Acuity: CHRISTIANA 3 as6 Triage Assessment: 03:03 General: Appears uncomfortable, ill, Behavior is cooperative, restless. Pain: Complains as6 of pain in abdomen. GI: Reports lower abdominal pain, upper abdominal pain, nausea, vomiting. Historical: - Allergies: 02:43 No Known Allergies; as6 - Home Meds: 07:11 Novolog U-100 Insulin aspart Sub-Q [Active]; sg5 - PMHx: 02:43 IDDM; Hypercholesterolemia; as6 - PSHx: 02:43 None; as6 - Immunization history:: Client reports receiving the 2nd dose of the Covid vaccine, pfizer. - Social history:: Smoking status: Reported history of juuling and/or vaping. - Family history:: not pertinent. Screenin:[facility] ED Fall Risk Assessment (Adult) History of falling in the last 3 months, aa9 including since admission No falls in past 3 months (0 pts) Confusion or Disorientation No (0 pts) Intoxicated or Sedated No (0 pts) Impaired Gait No (0 pts) Mobility Assist Device Used No (0 pt) Altered Elimination No (0 pt) Score/Fall Risk Level 0 - 2 = Low Risk Oriented to surroundings, Maintained a safe environment. Abuse screen: Denies threats or abuse. Denies injuries from another. Nutritional screening: No deficits noted. Tuberculosis screening: No symptoms or risk factors identified. Assessment: 03:30 Reassessment: Patient appears in no apparent distress at this time. Patient and/or aa9 family updated on plan of care and expected duration. Pain level reassessed. Patient is alert, oriented x 3, equal unlabored respirations, skin warm/dry/pink. 04:30 Reassessment: Patient appears in no apparent distress at this time. aa9 06:51 Reassessment: Patient appears in no apparent distress at this time. Flor FERRER at aa9 bedside. 07:11 GI: Bowel sounds present X 4 quads. Abd is soft and non tender X 4 quads. sg5 Vital Signs: 02:39 BP 127 / 86; Pulse 89; Resp 18 S; Temp 99.3; Pulse Ox 99% on R/A; Weight 81.65 kg (R); as6 Height 5 ft. 11 in. (R); Pain 9/10; 03:20 BP 116 / 78; Pulse 65; Resp 17 S; Pulse Ox 98% on R/A; aa9 04:30 BP 122 / 74; Pulse 67; Resp 16 S; Pulse Ox 98% on R/A; aa9 05:30 BP 129 / 72; Pulse 62; Resp 16; Pulse Ox 97% on R/A; aa9 06:58 BP 114 / 68; Pulse 64; Resp 17; Temp 97.9; Pulse Ox 99% ; aa9 02:39 Body Mass Index 25.10 (81.65 kg, 180.34 cm) as6 02:39 Pain Scale: Adult as6 ED Course: 02:30 Patient arrived in ED. ja2 02:43 Triage completed. as6 02:43 Arm band placed on. as6 03:03 Inserted saline lock: 20 gauge in right antecubital area, using aseptic technique. as6 Blood collected. 03:25 Gladis Desouza, RN is Primary Nurse. aa9 04:23 CT Abd/Pelvis - IV Contrast Only In Process Unspecified. EDMS 04:30 Ravindra Ray MD is Attending Physician. sp4 06:57 Patient has correct armband on for positive identification. Bed in low position. Side aa9 rails up X2. Pulse ox on. NIBP on. 06:58 No provider procedures requiring assistance completed. aa9 07:11 IV discontinued. sg5 Administered Medications: 03:03 Drug: NS 0.9% IV 1000 ml Route: IV; Rate: 1 bolus; Site: right antecubital; as6 03:03 Drug: morphine IVP or IV 4 mg Route: IVP; Infused Over: 4 mins; Site: right antecubital;as6 03:03 Drug: Promethazine IVP 25 mg Route: IVP; Site: right antecubital; as6 05:03 Drug: NS 0.9% IV 1000 ml Route: IV; Rate: 1 bolus; Site: right antecubital; aa9 05:03 Drug: metoCLOPramide IVP 10 mg Route: IVP; Site: right antecubital; aa9 Medication: 07:12 VIS not applicable for this client. sg5 Outcome: 07:02 Discharge ordered by . sp4 07:11 Discharged to home with family. sg5 07:11 Condition: good 07:11 Discharge instructions given to patient, Instructed on discharge instructions, follow up and referral plans. 07:12 Patient left the ED. sg5 Signatures: Dispatcher [employer] EDIL Regine Jean Martin Mercado RN RN as6 Gladis Desouza RN RN aa9 Potepalov, Sergey, MD MD sp4 Bernadette Oswald RN RN sg5
[2023-02-04 07:40] VITALS: BP 114/68; TEMP 97.9; O2SAT 99
--- NOTE | 2023-02-05 13:48 | RAD REPORT ---
EXAM DESCRIPTION: CT - Abdomen Pelvis W Contrast - 02/04/2023 6:52 am CLINICAL HISTORY: Abdominal pain COMPARISON: CTA chest/abdomen/pelvis 01/25/2023 TECHNIQUE: Abdomen/pelvis axial images acquired with IV contrast. Coronal and sagittal reformats amador mitchell. Exam performed according to departmental dose-optimization program which includes automated expo sure control, adjustment of mA and/or kV according to patient size, and/or use of iterative reconstru ction technique. FINDINGS: No free air or significant free fluid. Liver, gallbladder, spleen, pancreas, adrenals, kidneys, and urinary bladder unremarkable. Mildly dilated, focal, fluid-filled, left mid abdominal small bowel loop measuring about 2.[address] (axial series, image 40; coronal series, image 48; sagittal series, image 97). No associated small bowel wall thickening or perienteric fat stranding. Nonopacified stomach, appendix, and large bowel appear grossly unremarkable. Portions of large bowel difficult to accurately evaluate due to lack of distention. Abdominal aorta unremarkable. Few small round left inferior pelvic calcifications likely represent phleboliths. Bones unremarkable. IMPRESSION: Focal, mildly dilated, fluid-filled, left mid abdominal small bowel loop. Causes include focal ileus, early or partial small bowel obstruction, or enteritis. Electronically signed by: Yamil Atkins MD 02/04/2023 5:36 AM CDT Due to temporary technical issues with the PACS/Fluency reporting system, reports are being signed by the in house radiologist without review as a courtesy to ensure prompt reporting. The interpreting r adiologist is fully responsible for the content of the report.
== END 2023-02-04 07:12 | disposition home or self-care (01) ==
LOC: ER 02:29
DX: A08.39 Other viral enteritis (principal); E11.65 Type 2 diabetes mellitus with hyperglycemia; Z79.4 Long term (current) use of insulin
CPT/HCPCS: 36415; 74177; 80053; 82947; 83690; 85025; 87804; 87811; 96374; 96375; 99284; J2550; J2765; J7030; Q9967

== ENCOUNTER 2023-03-23 18:27 | Emergency (ER) | payer OTHER ==
--- OUTSIDE RECORDS SUMMARY | 2023-03-23 18:45 | XMS REPORT | Continuity of Care Document ---
:1990 Author Organization [facility] t Address [address] [place] [address] [place] [address] Care Team Providers Name Role Phone Bina Ochoa Primary Care Physician [phone] Problems This patient has no known problems. [...] 2021- No Unknown 2-13 00:00: 00 Dose 2021- No Unknown 2-13 00:00: 00 TAKE 1 2021-08 No TABLET BY 2-13 MOUTH EVERY 00:00: 4-6 HOURS 00 NEEDED TAKE 1 2021- No TABLET 9-28 TWICE 00:00: DAILY. 00 Dose 2021- No Unknown 9-28 00:00: 00 TAKE 1 2021- No 20 TABLET 9-28 TWICE 00:00: DAILY. 00 Dose 2021-0 No Unknown 05-17 00:00: 00 TAKE 1 2021-0 No TABLET - TWICE 00:00: DAILY. 00 Dose 2021-0 No Unknown 04-26 00:00: 00 Dose 2021-0 No Unknown 04-26 00:00: 00 Dose 2021-0 No Unknown 04-26 00:00: 00 INJECT 2-0 No 100 15-20 UNITS 9-07 BELOW THE 00:00: SKIN TWICE 00 A DAY Dose 2021-0 No Unknown 04-26 00:00: 00 Dose 2021-0 No Unknown 04-26 00:00: 00 Vital Signs [...] Goal Plan of Care Note [code = 08976-9] Goal Plan of Care Note [code = 15880-4] Goal Plan of Care Note [code = 13417-4] Goal Plan of Care Note [code = 80243-3] Goal Plan of Care Note [code = 37722-7] Goal Plan of Care Note [code = 96236-2] Goal Plan of Care Note [code = 78395-4] Goal Plan of Care Note [code = 03814-1] Goal Plan of Care Note [code = 33180-2] Goal Plan of Care Note [code = 71902-9] Goal Plan of Care Note [code = 72069-2] Goal Plan of Care Note [code = 15323-1] Goal Plan of Care Note [code = 86011-4] Goal Plan of Care Note [code = 64293-1] Goal Plan of Care Note [code = 01416-6] Goal Plan of Care Note [code = 24817-2] Goal Plan of Care Note [code = 91133-6] Goal Plan of Care Note [code = 67459-2] Goal Plan of Care Note [code = 95291-9] Goal Plan of Care Note [code = 42016-9] Goal Plan of Care Note [code = 38520-6] Goal Plan of Care Note [code = 17982-8] Goal Plan of Care Note [code = 62246-1] Goal Plan of Care Note [code = 33120-1] Goal Plan of Care Note [code = 92208-0] Goal Plan of Care Note [code = 80255-4] Goal Plan of Care Note [code = 80815-2] Goal Plan of Care Note [code = 52222-0] Goal Plan of Care Note [code = 50456-1] Goal Plan of Care Note [code = 95656-3] Goal Plan of Care Note [code = 04978-5] Goal Plan of Care Note [code = 79521-8] Goal Plan of Care Note [code = 00351-4] Goal Plan of Care Note [code = 43290-6] Goal Plan of Care Note [code = 29414-9] Goal Plan of Care Note [code = 93179-9] Goal Plan of Care Note [code = 15606-2] Goal Plan of Care Note [code = 71340-8] Goal Plan of Care Note [code = 22139-8] Goal Plan of Care Note [code = 55071-5] Goal Plan of Care Note [code = 35682-8] Goal Plan of Care Note [code = 02440-7] Goal Plan of Care Note [code = 07886-7] Goal Plan of Care Note [code = 73484-8] Goal Plan of Care Note [code = 47495-0] Goal Plan of Care Note [code = 82227-9] Goal Plan of Care Note [code = 56497-0] Goal Plan of Care Note [code = 66535-8] Goal Plan of Care Note [code = 83683-9] Goal Plan of Care Note [code = 05170-0] Goal Plan of Care Note [code = 45054-4] Goal Plan of Care Note [code = 05329-3] Goal Plan of Care Note [code = 33070-6] Encounters Start End Encounter Admission Attending Care Care Encounter Source Date/Time Date/Time Type Type Clinicians Facility Department ID 2023-02-09 2023-02-09 Outpatient SFA SFA [id number] Johann 17:00:36 17:00:36 [id number] F Dylon 2023-01-08 2023-01-08 Outpatient SFA SFA [id number] Johann 11:43:52 11:43:52 [id number] F Dylon 2022-12-20 2022-12-20 Outpatient SFA SFA [id number] Johann 11:32:16 11:32:16 [id number] F [place]wick 2022-12-19 2022-12-19 Outpatient SFA SFA [id number]- Johann 13:34:58 13:34:58 [id number] F [place] 2022-11-07 2022-11-07 Outpatient SFA SFA [id number]- Johann 09:41:09 09:41:09 [id number] F [place] 2022-10-26 2022-10-26 Outpatient SFA SFA [id number]- Johann 10:43:17 10:43:17 [id number] F [place] 2022-08-02 2022-08-02 Outpatient SFA SFA [id number]- Johann 13:36:36 13:36:36 [id number] F [place] 2022-08-02 2022-08-02 Outpatient [id number] 00:00:00 00:00:00 Visit n2lo-97wi 3eb-45ef-a -t5if-0f7 6bc-8z566b 48sfr1082 mm3108 2022-06-27 2022-06-27 Outpatient SFA SFA [id number] Johann 14:28:49 14:28:49 [id number] F Dylon 2022-06-27 2022-06-27 Outpatient [id number]- [id number] l80f6s-l 00:00:00 00:00:00 Visit qz98-73gz m57-05si-x -hq99-ot0 z63-me806k 17mm08yqe d31cbc 2022-05-30 2022-05-30 Outpatient [id number]- [id number] 47548v-u 00:00:00 00:00:00 Visit y630-0702 467-4492-8 -30z7-6ki 6r3-3qxuh3 jb38d7ad6 6f0de3 2022-05-24 2022-05-24 Outpatient [facility] [id number] Johann 13:25:23 13:25:23 [id number] F Dylon 2022-05-24 2022-05-24 Outpatient [id number] 00:00:00 00:00:00 Visit 7y73-6m48 i14-4g55-4 -8616-bb7 616-bb7bb5 zx87xo718 2js046 2022-05-17 2022-05-17 Outpatient q5h6vl53- [id number] f6 u4ai27-8 00:00:00 00:00:00 Visit 06d5-7mn4 3w4-4ez3-5 -1w4r-eht w8u-whai81 e61tyfyod ecbfaa 2022-04-26 2022-04-26 Outpatient 9h396p1b- [id number] 0c 811m1y-f 00:00:00 00:00:00 Visit z70a-35pe 91d-41dc-9 -9142-545 142-545c34 p22il1391 gw5121 Results Test Description Test Time Test Comments Results Result Comments Source HEMOGLOBIN A1c 2022-10-27 02:13:26 Test Item Value Reference Range Interpretation Comme nts HEMOGLOBIN A1c (test 9.6 % 4.2-5.6 H [employer]IATION GUIDELINES FOR code = 11421) HGB A1C: PREDI ABETES/INCREASED RISK . . . . . . . 5.7-6.4% DI AGNOSIS OF DIABETES . . . . . . . . . >=6.5% WITH CONFIRMATION OR APPROPRIATE SYM PTOMS NOTE: ASSAY MAY BE AFFECTED BY HEM OGLOBINOPATHIES (SICKLE CELL ANEMIA, S-C DIS EASE, OTHERS) OR ARTIFICIALLY LOWERED BY DEC REASED RED CELL SURVIVAL (HEMOLYTIC ANEM IAS, BLOOD LOSS, ETC.). CONSIDER ALTERN ATE TESTING OR LABORATORY CONSULTATION. * [facility] has important pathology staff changes e ffective 10/18/2022. New pathology staff will provide uninterrupted, excellent patie nt care and clinical consultation. S ee URL: [email or web address]. UNLESS OTHERWISE INDIC ATED, ALL TESTING PERFORMED AT [facility] [address] [place] [address] GIFT OFFICER: ALEX ELIAS M.D. CLIA NUMBER [id number] [place]. [id number] CULTURE, [id number] 16:24:13SPECIMEN NUMBER: [id number] CULTURE, URINE SPECIMEN NUMBER: [id number] SPECIMEN COMMENT: URINE SOURCE:URINE REPORT STATUS: FINAL [...] CULTURE, URINE (test SPECIMEN NUMBER: code = 43500) [id number] CULTURE, [id number] 00:00:00 Test Item Value Reference Range Interpretation Comments CULTURE, URINE (test SPECIMEN NUMBER: code = 72019) [id number] CULTURE, [id number] 00:00:00 Test Item Value Reference Range Interpretation Comments CULTURE, URINE (test SPECIMEN NUMBER: code = 48393) [id number] CULTURE, [id number] 00:00:00 Test Item Value Reference Range Interpretation Comments CULTURE, URINE (test SPECIMEN NUMBER: code = 25610) [id number] CULTURE, [id number] 00:00:00 Test Item Value Reference Range Interpretation Comments CULTURE, URINE (test SPECIMEN NUMBER: code = 82449) [id number] CULTURE, [id number] 00:00:00 Test Item Value Reference Range Interpretation Comments CULTURE, URINE (test SPECIMEN NUMBER: code = 45322) [id number] CULTURE, [id number] 00:00:00 Test Item Value Reference Range Interpretation Comments CULTURE, URINE (test SPECIMEN NUMBER: code = 15538) [id number] CULTURE, [id number] 00:00:00 Test Item Value Reference Range Interpretation Comments CULTURE, URINE (test SPECIMEN NUMBER: code = 08711) [id number] CT/NG, NAAT, [id number] 19:07:28 Test Item Value Reference Range Interpretation Comments GONORRHEA, NAAT NEGATIVE NEGATIVE IMPORTA NT NOTICE: SEE (test code = [place] [address]) [email or web address] ImmunexpressKit Note: Assay methodology is nucleic acid amplification b y railroad wheels and axles inspector m ediated amplification ( TMA) utilizing the A ptima Combo 2 Assay. CHLAMYDIA, NAAT NEGATIVE NEGATIVE IMPORTA NT NOTICE: SEE (test code = [place] [address]) [email or web address] [email or web address] Note: Assay methodology is nucleic acid amplification b y railroad wheels and axles inspector m ediated amplification ( TMA) utilizing the A ptima Combo 2 Assay. UNLESS OTHERWISE INDICATED, ALL TESTING PERFORMED [facility] [address] [place] [id number] [place] [address] DIRECTOR: KUSHAL AGUSTIN M.D. CLIA NUMBER [id number] CAP ACCREDITATION N O. [id number] CT/NG, TMA, [id number] 00:00:00 Test Item Value Reference Range Interpretation Comments GONORRHEA, NAAT (test code = 30554) NEGATIVE CHLAMYDIA, NAAT (test code = 48895) NEGATIVE CT/NG, TMA, [id number] 00:00:00 Test Item Value Reference Range Interpretation Comments GONORRHEA, NAAT (test code = 32252) NEGATIVE CHLAMYDIA, NAAT (test code = 46064) NEGATIVE CT/NG, TMA, [id number] 00:00:00 Test Item Value Reference Range Interpretation Comments GONORRHEA, NAAT (test code = 43421) NEGATIVE CHLAMYDIA, NAAT (test code = 60656) NEGATIVE CT/NG, TMA, [id number] 00:00:00 Test Item Value Reference Range Interpretation Comments GONORRHEA, NAAT (test code = 86827) NEGATIVE CHLAMYDIA, NAAT (test code = 70381) NEGATIVE CT/NG, TMA, [id number] 00:00:00 Test Item Value Reference Range Interpretation Comments GONORRHEA, NAAT (test code = 72191) NEGATIVE CHLAMYDIA, NAAT (test code = 22203) NEGATIVE CT/NG, TMA, [id number] 00:00:00 Test Item Value Reference Range Interpretation Comments GONORRHEA, NAAT (test code = 53850) NEGATIVE CHLAMYDIA, NAAT (test code = 87383) NEGATIVE CT/NG, TMA, [id number] 00:00:00 Test Item Value Reference Range Interpretation Comments GONORRHEA, NAAT (test code = 73956) NEGATIVE CHLAMYDIA, NAAT (test code = 16994) NEGATIVE CT/NG, TMA, [id number] 00:00:00 Test Item Value Reference Range Interpretation Comments GONORRHEA, NAAT (test code = 79675) NEGATIVE CHLAMYDIA, NAAT (test code = 99526) NEGATIVE H. PYLORI (BREATH)2022-05-19 15:05:57 Test Item Value Reference Range Interpretation Comments H. PYLORI (BREATH) (test code = NEGATIVE NEGATIVE 85984) [id number] 04:16:31 Test Item Value Reference Range Interpretation Comments AMYLASE (test code = 2205) 37 U/L 28-100 [id number] 04:16:31 Test Item Value Reference Range Interpretation Comments LIPASE (test code = 18 U/L 13-60 UNLESS OTHERWISE 2058) INDICATED, ALL TESTING PERFORMED [facility] [address] [place] [address] [facility] DIRECTOR: KUSHAL AGUSTIN M.D. CLIA NUMBER [id number] CAP ACCREDITATION N O. [id number] H. PYLORI (BREATH)2022-05-19 00:00:00 Test Item Value Reference Range Interpretation Comments H. PYLORI (BREATH) (test code = NEGATIVE 52551) H. PYLORI (BREATH)2022-05-19 00:00:00 Test Item Value Reference Range Interpretation Comments H. PYLORI (BREATH) (test code = NEGATIVE 78842) [id number] 00:00:00 Test Item Value Reference Range Interpretation Comments AMYLASE (test code = 2205) 37 U/L [id number] 00:00:00 Test Item Value Reference Range Interpretation Comments AMYLASE (test code = 2205) 37 U/L [id number] 00:00:00 Test Item Value Reference Range Interpretation Comments LIPASE (test code = 2057) 18 U/L [id number] 00:00:00 Test Item Value Reference Range Interpretation Comments LIPASE (test code = 2057) 18 U/L [id number] 00:00:00 Test Item Value Reference Range Interpretation Comments LIPASE (test code = 2057) 18 U/L H. PYLORI (BREATH)2022-05-19 00:00:00 Test Item Value Reference Range Interpretation Comments H. PYLORI (BREATH) (test code = NEGATIVE 14118) H. PYLORI (BREATH)2022-05-19 00:00:00 Test Item Value Reference Range Interpretation Comments H. PYLORI (BREATH) (test code = NEGATIVE 89247) [id number] 00:00:00 Test Item Value Reference Range Interpretation Comments AMYLASE (test code = 2205) 37 U/L [id number] 00:00:00 Test Item Value Reference Range Interpretation Comments AMYLASE (test code = 2205) 37 U/L [id number] 00:00:00 Test Item Value Reference Range Interpretation Comments LIPASE (test code = 2057) 18 U/L [id number] 00:00:00 Test Item Value Reference Range Interpretation Comments LIPASE (test code = 2057) 18 U/L [id number] 00:00:00 Test Item Value Reference Range Interpretation Comments LIPASE (test code = 2057) 18 U/L H. PYLORI (BREATH)2022-05-19 00:00:00 Test Item Value Reference Range Interpretation Comments H. PYLORI (BREATH) (test code = NEGATIVE 85769) H. PYLORI (BREATH)2022-05-19 00:00:00 Test Item Value Reference Range Interpretation Comments H. PYLORI (BREATH) (test code = NEGATIVE 02361) [id number] 00:00:00 Test Item Value Reference Range Interpretation Comments AMYLASE (test code = 2205) 37 U/L [id number] 00:00:00 Test Item Value Reference Range Interpretation Comments AMYLASE (test code = 2205) 37 U/L [id number] 00:00:00 Test Item Value Reference Range Interpretation Comments LIPASE (test code = 2057) 18 U/L [id number] 00:00:00 Test Item Value Reference Range Interpretation Comments LIPASE (test code = 2057) 18 U/L [id number] 00:00:00 Test Item Value Reference Range Interpretation Comments LIPASE (test code = 2057) 18 U/L H. PYLORI (BREATH)2022-05-19 00:00:00 Test Item Value Reference Range Interpretation Comments H. PYLORI (BREATH) (test code = NEGATIVE 75306) H. PYLORI (BREATH)2022-05-19 00:00:00 Test Item Value Reference Range Interpretation Comments H. PYLORI (BREATH) (test code = NEGATIVE 53351) [id number] 00:00:00 Test Item Value Reference Range Interpretation Comments AMYLASE (test code = 5) 37 U/L [id number] 00:00:00 Test Item Value Reference Range Interpretation Comments AMYLASE (test code = 5) 37 U/L [id number] 00:00:00 Test Item Value Reference Range Interpretation Comments LIPASE (test code = 2057) 18 U/L [id number] 00:00:00 Test Item Value Reference Range Interpretation Comments LIPASE (test code = 2057) 18 U/L [id number] 00:00:00 Test Item Value Reference Range Interpretation Comments LIPASE (test code = 2057) 18 U/L HEMOGLOBIN [id number] 23:37:11 Test Item Value Reference Range Interpretation Comments HEMOGLOBIN A1c (test 10.4 % 4.2-5.6 H AMERIC AN DIABETES code = 02021) ASSOCIATION IDELINES FOR HGB A1C: PREDIABETES/INC REASED [...] INDICATED, ALL TESTING PER FORMED ATCLINICAL PATH [facility]. [address] [place] [address] LABORATORY DIRE CTOR: Lelo SOLOMON. CLIA NUMBER [id number] CAP ACCREDITATION N O. [id number] COMPREHENSIVE METABOLIC [id number] 06:29:07 Test Item Value Reference Range Interpretation Comments GLUCOSE (test code = 264 MG/DL 70-99 H 2216) BUN (test code = 9 MG/DL 6-20 2207) CREATININE (test 0.68 MG/DL 0.80-1.40 L code = 2214) eGFR (2020 CKD-EPI) 127 >60 (test code = 22444) ML/MIN/1.73 CALC BUN/CREAT (test 13 RATIO 6-28 code = 2235) SODIUM (test code = 143 MEQ/L 764-925 8267) POTASSIUM (test code 4.6 MEQ/L 3.5-5.4 = [...] PHOSPHATASE 76 U/L 40-112 (test code = 220) AST (test code = 17 U/L 9-50 2217) ALT (test code = 20 U/L -50 2218) LIPID [id number] 06:29:07 Test Item Value Reference Range Interpretation [...] MOREINFORMATION , SEE CLIENT ANNOUNCE MENT AT [email or web address] RISK RATIO LDL/HDL 2.95 RATIO <3.55 (test code = 2238) COMPREHENSIVE METABOLIC [id number] 00:00:00 Test Item Value Reference Range Interpretation Comments GLUCOSE (test code = 2216) 264 MG/DL BUN (test code = 2207) 9 MG/DL CREATININE (test code = 2214) 0.68 MG/DL eGFR (2020 CKD-EPI) (test 127 ML/MIN/1.73 code = 55907) CALC BUN/CREAT (test code = 13 RATIO [...] (test code = 2219) 20 U/L LIPID [id number] 00:00:00 Test Item Value Reference Range Interpretation Comments CHOLESTEROL (test code = 2210) 172 MG/DL TRIGLYCERIDES (test code = 2232) 84 MG/DL HDL CHOLESTEROL (test code = 2220) 39 MG/DL CALC LDL CHOL (test code = 2237) 115 MG/DL RISK RATIO LDL/HDL (test code = 2.95 RATIO 2238) LIPID [id number] 00:00:00 Test Item Value Reference Range Interpretation Comments CHOLESTEROL (test code = 2210) 172 MG/DL TRIGLYCERIDES (test code = 2232) 84 MG/DL HDL CHOLESTEROL (test code = 2220) 39 MG/DL CALC LDL CHOL (test code = 2237) 115 MG/DL RISK RATIO LDL/HDL (test code = 2.95 RATIO 2238) HEMOGLOBIN [id number] 00:00:00 Test Item Value Reference Range Interpretation Comments HEMOGLOBIN A1c (test code = 07585) 10.4 % HEMOGLOBIN [id number] 00:00:00 Test Item Value Reference Range Interpretation Comments HEMOGLOBIN A1c (test code = 02588) 10.4 % HEMOGLOBIN [id number] 00:00:00 Test Item Value Reference Range Interpretation Comments HEMOGLOBIN A1c (test code = 33659) 10.4 % COMPREHENSIVE METABOLIC [id number] 00:00:00 Test Item Value Reference Range Interpretation Comments GLUCOSE (test code = 2217) 264 MG/DL BUN (test code = 2208) 9 MG/DL CREATININE (test code = 2214) 0.68 MG/DL eGFR (2020 CKD-EPI) (test 127 ML/MIN/1.73 code = 18295) CALC BUN/CREAT (test code = 13 RATIO [...] code = 2219) 20 U/L COMPREHENSIVE METABOLIC [id number] 00:00:00 Test Item Value Reference Range Interpretation Comments GLUCOSE (test code = 2217) 264 MG/DL BUN (test code = 2208) 9 MG/DL CREATININE (test code = 2214) 0.68 MG/DL eGFR (2020 CKD-EPI) (test 127 ML/MIN/1.73 code = 34779) CALC BUN/CREAT (test code = 13 RATIO [...] (test code = 2219) 20 U/L LIPID [id number] 00:00:00 Test Item Value Reference Range Interpretation Comments CHOLESTEROL (test code = 2210) 172 MG/DL TRIGLYCERIDES (test code = 2232) 84 MG/DL HDL CHOLESTEROL (test code = 2220) 39 MG/DL CALC LDL CHOL (test code = 2237) 115 MG/DL RISK RATIO LDL/HDL (test code = 2.95 RATIO 2238) LIPID [id number] 00:00:00 Test Item Value Reference Range Interpretation Comments CHOLESTEROL (test code = 2210) 172 MG/DL TRIGLYCERIDES (test code = 2232) 84 MG/DL HDL CHOLESTEROL (test code = 2220) 39 MG/DL CALC LDL CHOL (test code = 2237) 115 MG/DL RISK RATIO LDL/HDL (test code = 2.95 RATIO 2238) HEMOGLOBIN [id number] 00:00:00 Test Item Value Reference Range Interpretation Comments HEMOGLOBIN A1c (test code = 20656) 10.4 % HEMOGLOBIN [id number] 00:00:00 Test Item Value Reference Range Interpretation Comments HEMOGLOBIN A1c (test code = 26632) 10.4 % HEMOGLOBIN [id number] 00:00:00 Test Item Value Reference Range Interpretation Comments HEMOGLOBIN A1c (test code = 46716) 10.4 % COMPREHENSIVE METABOLIC [id number] 00:00:00 Test Item Value Reference Range Interpretation Comments GLUCOSE (test code = 2217) 264 MG/DL BUN (test code = 2208) 9 MG/DL CREATININE (test code = 2214) 0.68 MG/DL eGFR (2020 CKD-EPI) (test 127 ML/MIN/1.73 code = 89206) CALC BUN/CREAT (test code = 13 RATIO [...] A/G RATIO (test code = 1.5 RATIO 4) BILIRUBIN, TOTAL (test code = 0.4 MG/DL 2206) ALKALINE PHOSPHATASE (test 76 U/L code = 2204) AST (test code = 2218) 17 U/L ALT (test code = 2219) 20 U/L COMPREHENSIVE METABOLIC [id number] 00:00:00 Test Item Value Reference Range Interpretation Comments GLUCOSE (test code = 2217) 264 MG/DL BUN (test code = 2208) 9 MG/DL CREATININE (test code = 2214) 0.68 MG/DL eGFR (2020 CKD-EPI) (test 127 ML/MIN/1.73 code = 33299) CALC BUN/CREAT (test code = 13 RATIO [...] (test code = 2219) 20 U/L LIPID [id number] 00:00:00 Test Item Value Reference Range Interpretation Comments CHOLESTEROL (test code = 2210) 172 MG/DL TRIGLYCERIDES (test code = 2232) 84 MG/DL HDL CHOLESTEROL (test code = 2220) 39 MG/DL CALC LDL CHOL (test code = 2237) 115 MG/DL RISK RATIO LDL/HDL (test code = 2.95 RATIO 2238) LIPID [id number] 00:00:00 Test Item Value Reference Range Interpretation Comments CHOLESTEROL (test code = 2210) 172 MG/DL TRIGLYCERIDES (test code = 2232) 84 MG/DL HDL CHOLESTEROL (test code = 2220) 39 MG/DL CALC LDL CHOL (test code = 2237) 115 MG/DL RISK RATIO LDL/HDL (test code = 2.95 RATIO 2238) HEMOGLOBIN [id number] 00:00:00 Test Item Value Reference Range Interpretation Comments HEMOGLOBIN A1c (test code = 47896) 10.4 % HEMOGLOBIN [id number] 00:00:00 Test Item Value Reference Range Interpretation Comments HEMOGLOBIN A1c (test code = 55234) 10.4 % HEMOGLOBIN [id number] 00:00:00 Test Item Value Reference Range Interpretation Comments HEMOGLOBIN A1c (test code = 67917) 10.4 % COMPREHENSIVE METABOLIC [id number] 00:00:00 Test Item Value Reference Range Interpretation Comments GLUCOSE (test code = 2217) 264 MG/DL BUN (test code = 2208) 9 MG/DL CREATININE (test code = 2214) 0.68 MG/DL eGFR (2020 CKD-EPI) (test 127 ML/MIN/1.73 code = 25693) CALC BUN/CREAT (test code = 13 RATIO 2235) SODIUM (test code = 2231) 143 MEQ/L POTASSIUM (test code = 2228) 4.6 MEQ/L CHLORIDE (test code = 2215) 105 MEQ/L CARBON DIOXIDE (test code = 24 MEQ/L 2206) CALCIUM (test code = 2209) 9.3 MG/DL PROTEIN, TOTAL (test code = 6.8 G/DL 2229) ALBUMIN (test code = 2201) 4.1 G/DL CALC GLOBULIN (test code = 2.7 G/DL 2240) CALC A/G RATIO (test code = 1.5 RATIO 2234) BILIRUBIN, TOTAL (test code = 0.4 MG/DL 2206) ALKALINE PHOSPHATASE (test 76 U/L code = 2204) AST (test code = 2218) 17 U/L ALT (test code = 2219) 20 U/L COMPREHENSIVE METABOLIC [id number] 00:00:00 Test Item Value Reference Range Interpretation Comments GLUCOSE (test code = 2217) 264 MG/DL BUN (test code = 2208) 9 MG/DL CREATININE (test code = 2214) 0.68 MG/DL eGFR (2020 CKD-EPI) (test 127 ML/MIN/1.73 code = 59880) CALC BUN/CREAT (test code = 13 RATIO 2235) SODIUM (test code = 2231) 143 MEQ/L POTASSIUM (test code = 2228) 4.6 MEQ/L CHLORIDE (test code = 2215) 105 MEQ/L CARBON DIOXIDE (test code = 24 MEQ/L 6) CALCIUM (test code = 2209) 9.3 MG/DL PROTEIN, TOTAL (test code = 6.8 G/DL 2229) ALBUMIN (test code = 2201) 4.1 G/DL CALC GLOBULIN (test code = 2.7 G/DL 2240) CALC A/G RATIO (test code = 1.5 RATIO 2234) BILIRUBIN, TOTAL (test code = 0.4 MG/DL 2206) ALKALINE PHOSPHATASE (test 76 U/L code = 2204) AST (test code = 2218) 17 U/L ALT (test code = 2219) 20 U/L LIPID [id number] 00:00:00 Test Item Value Reference Range Interpretation Comments CHOLESTEROL (test code = 2210) 172 MG/DL TRIGLYCERIDES (test code = 2232) 84 MG/DL HDL CHOLESTEROL (test code = 2220) 39 MG/DL CALC LDL CHOL (test code = 2237) 115 MG/DL RISK RATIO LDL/HDL (test code = 2.95 RATIO 2238) LIPID [id number] 00:00:00 Test Item Value Reference Range Interpretation Comments CHOLESTEROL (test code = 2210) 172 MG/DL TRIGLYCERIDES (test code = 2232) 84 MG/DL HDL CHOLESTEROL (test code = 2220) 39 MG/DL CALC LDL CHOL (test code = 2237) 115 MG/DL RISK RATIO LDL/HDL (test code = 2.95 RATIO 2238) HEMOGLOBIN [id number] 00:00:00 Test Item Value Reference Range Interpretation Comments HEMOGLOBIN A1c (test code = 12357) 10.4 % HEMOGLOBIN [id number] 00:00:00 Test Item Value Reference Range Interpretation Comments HEMOGLOBIN A1c (test code = 11921) 10.4 % HEMOGLOBIN [id number] 00:00:00 Test Item Value Reference Range Interpretation Comments HEMOGLOBIN A1c (test code = 86864) 10.4 % COMPREHENSIVE METABOLIC [id number] 00:00:00 Test Item Value Reference Range Interpretation Comments GLUCOSE (test code = 2217) 264 MG/DL BUN (test code = 2208) 9 MG/DL CREATININE (test code = 2214) 0.68 MG/DL eGFR (2020 CKD-EPI) (test 127 ML/MIN/1.73 code = 06117) CALC BUN/CREAT (test code = 13 RATIO [...] BILIRUBIN, TOTAL (test code = 0.4 MG/DL 2207) ALKALINE PHOSPHATASE (test 76 U/L code = 2204) AST (test code = 2218) 17 U/L ALT (test code = 2219) 20 U/L COMPREHENSIVE METABOLIC [id number] 00:00:00 Test Item Value Reference Range Interpretation Comments GLUCOSE (test code = 2217) 264 MG/DL BUN (test code = 2208) 9 MG/DL CREATININE (test code = 2214) 0.68 MG/DL eGFR (2020 CKD-EPI) (test 127 ML/MIN/1.73 code = 23155) CALC BUN/CREAT (test code = 13 RATIO [...] CALC GLOBULIN (test code = 2.7 G/DL 224) CALC A/G RATIO (test code = 1.5 RATIO 2234) BILIRUBIN, TOTAL (test code = 0.4 MG/DL 2206) ALKALINE PHOSPHATASE (test 76 U/L code = 2204) AST (test code = 2218) 17 U/L ALT (test code = 2219) 20 U/L LIPID [id number] 00:00:00 Test Item Value Reference Range Interpretation Comments CHOLESTEROL (test code = 2210) 172 MG/DL TRIGLYCERIDES (test code = 2232) 84 MG/DL HDL CHOLESTEROL (test code = 2220) 39 MG/DL CALC LDL CHOL (test code = 2237) 115 MG/DL RISK RATIO LDL/HDL (test code = 2.95 RATIO 2238) LIPID [id number] 00:00:00 Test Item Value Reference Range Interpretation Comments CHOLESTEROL (test code = 2210) 172 MG/DL TRIGLYCERIDES (test code = 2232) 84 MG/DL HDL CHOLESTEROL (test code = 2220) 39 MG/DL CALC LDL CHOL (test code = 2237) 115 MG/DL RISK RATIO LDL/HDL (test code = 2.95 RATIO 2238) HEMOGLOBIN [id number] 00:00:00 Test Item Value Reference Range Interpretation Comments HEMOGLOBIN A1c (test code = 41449) 10.4 % HEMOGLOBIN [id number] 00:00:00 Test Item Value Reference Range Interpretation Comments HEMOGLOBIN A1c (test code = 69886) 10.4 % HEMOGLOBIN [id number] 00:00:00 Test Item Value Reference Range Interpretation Comments HEMOGLOBIN A1c (test code = 81301) 10.4 % COMPREHENSIVE METABOLIC [id number] 00:00:00 Test Item Value Reference Range Interpretation Comments GLUCOSE (test code = 2217) 264 MG/DL BUN (test code = 2208) 9 MG/DL CREATININE (test code = 2214) 0.68 MG/DL eGFR (2020 CKD-EPI) (test 127 ML/MIN/1.73 code = 99808) CALC BUN/CREAT (test code = 13 RATIO [...]
[2023-03-23 21:32] LABS: Absolute Lymphocytes (CBC) 1.9 K/uL (0.7-4.9); Hematocrit 41.9 % (39.6-49.0); Lymphocytes % 28.5 % (15.3-44.8); MCV 88.9 fL (80-100); MPV 7.6 fL (7.6-11.3); RBC Red Blood Cell Count 4.71 M/uL (4.33-5.43)
[2023-03-23] MEDS ORDERED: NA CHLORIDE 0.9% 1,000 ML ONE (21:47)
[2023-03-23] MEDS ORDERED: ONDANSETRON 4 MG/2 ML VIAL ONE (21:47)
[2023-03-23 21:52] LABS: Albumin 4.1 g/dL (3.4-5.0); Bilirubin Direct 0.1 mg/dL (0-0.2); Bilirubin Indirect, Calculated 0.4 mg/dL (0.2-0.8); Bilirubin Total 0.5 mg/dL (0.2-1.0); Magnesium 2.3 mg/dL (1.6-2.4); Phosphorus 2.9 mg/dL (2.5-4.9); Protein, Total 8.4 g/dL (6.4-8.2)
[2023-03-23 22:03] LABS: Specific Gravity 1.023 (1.005-1.030); Urine Bacteria None Seen /HPF (<20); Urine Bilirubin NEGATIVE (Negative); Urine Blood Negative (Negative); Urine Clarity Clear (Clear); Urine Color Colorless (Yellow); Urine Glucose 4+ (Over) (Negative); Urine Protein NEGATIVE (Negative); Urine RBC <5 /HPF (None Seen); Urine Urobilinogen Normal (Normal); Urine pH 5.5 (5.0-7.0)
--- NOTE | 2023-03-23 22:09 | EDPHYS ---
Physician Documentation [facility] Name: Altaf Perez Age: 32 yrs Sex: Male : 1990 Arrival Date: 03/23/2023 Time: 18:27 Bed 11 Private MD: ED Physician Felix Curtis HPI: 03/23 22:32 This 32 yrs old Male presents to ER via Ambulatory with complaints of Nausea/Vomiting, sb4 Headache. 22:32 The patient presents to the emergency department with nausea, vomiting. Onset: The sb4 symptoms/episode began/occurred today. Possible causes: hyperglycemia/DKA. The symptoms are aggravated by nothing. The symptoms are alleviated by food . Associated signs and symptoms: Pertinent positives: headache, Pertinent negatives: constipation, diarrhea, dysuria, fever, flatulence, GI bleeding, hematuria. The patient has experienced similar episodes in the past, a few times. Historical: - Allergies: 18:42 No Known Allergies; mb9 - Home Meds: 18:42 Novolog U-100 Insulin aspart Sub-Q [Active]; mb9 - PMHx: 18:42 Hypercholesterolemia; IDDM; mb9 - Immunization history:: Adult Immunizations up to date. - Social history:: Smoking status: Patient denies any tobacco usage or history of. ROS: 22:32 Constitutional: Negative for fever, chills, and weight loss, Eyes: Negative for injury, sb4 pain, redness, and discharge, ENT: Negative for injury, pain, and discharge, Neck: Negative for injury, pain, and swelling, Cardiovascular: Negative for chest pain, palpitations, and edema, Respiratory: Negative for shortness of breath, cough, wheezing, and pleuritic chest pain, Abdomen/GI: Negative for abdominal pain, nausea, vomiting, diarrhea, and constipation, Back: Negative for injury and pain, MS/Extremity: Negative for injury and deformity, Skin: Negative for injury, rash, and discoloration. 22:32 All other systems are negative. Exam: 22:32 Constitutional: This is a well developed, well nourished patient who is awake, alert, sb4 and in no acute distress. Head/Face: Normocephalic, atraumatic. Eyes: Extra-ocular motions intact. Periorbital areas with no swelling, redness, or edema. ENT: Mucous membranes moist. Cardiovascular: Regular rate and rhythm with a normal S1 and S2. Respiratory: Lungs have equal breath sounds bilaterally, clear to auscultation and percussion. No rales, rhonchi or wheezes noted. No increased work of breathing, no retractions or nasal flaring. Abdomen/GI: Soft, non-tender, no distension. Back: No spinal tenderness. No costovertebral tenderness. Full range of motion. Skin: Warm, dry with normal turgor. Normal color with no rashes, no lesions, and no evidence of cellulitis. MS/ Extremity: Pulses equal, no cyanosis. Neurovascular intact. Full, normal range of motion. Vital Signs: 18:40 BP 127 / 80; Pulse 85; Resp 18; Temp 99.1; Pulse Ox 100% on R/A; Weight 81.65 kg; mb9 Height 5 ft. 11 in. ; Pain 7/10; 23:32 BP 108 / 67; Pulse 74; Resp 18; Pulse Ox 100% on R/A; mb9 18:40 Body Mass Index 25.10 (81.65 kg, 180.34 cm) mb9 18:40 Pain Scale: Adult mb9 MDM: 18:30 Patient medically screened. sb4 22:32 Differential diagnosis: Nonspecific abd pain, gastritis, viral gastroenteritis, sb4 gastroenteritis, hyperglycemia, DKA. Data reviewed: vital signs, nurses notes, lab test result(s), EKG, and as a result, I will discharge patient. Consideration of Admission/Observation Escalation of care including admission/observation considered. Care significantly affected by the following chronic conditions: Diabetes. Counseling: I had a detailed discussion with the patient and/or guardian regarding: the historical points, exam findings, and any diagnostic results supporting the discharge/admit diagnosis, lab results, to return to the emergency department if symptoms worsen or persist or if there are any questions or concerns that arise at home. 03/23 18:45 Order name: Basic Metabolic Panel; Complete Time: 21:56 sb4 03/23 18:45 Order name: CBC with Diff; Complete Time: 21:34 sb4 03/23 18:45 Order name: Hepatic Function; Complete Time: 21:56 sb4 03/23 18:45 Order name: Lipase; Complete Time: 21:56 sb4 03/23 18:45 Order name: Magnesium; Complete Time: 21:56 sb4 03/23 18:45 Order name: Phosphorus; Complete Time: 21:56 sb4 03/23 18:45 Order name: UAM; Complete Time: 22: sb4 03/23 22:00 Order name: Glucose, Ancillary Testing; Complete Time: 22:04 EDMS 03/23 18:45 Order name: EKG; Complete Time: 18:46 sb4 03/23 18:45 Order name: Cardiac monitoring; Complete Time: 21:25 sb4 03/23 18:45 Order name: EKG - Nurse/Tech; Complete Time: 22:00 sb4 03/23 18:45 Order name: IV Saline Lock; Complete Time: 21:26 sb4 03/23 18:45 Order name: NPO; Complete Time: 21: sb4 03/23 18:45 Order name: O2 Per Protocol; Complete Time: 21: sb4 03/23 18:45 Order name: O2 Sat Monitoring; Complete Time: 21: sb4 03/23 18:57 Order name: Accucheck; Complete Time: 21:49 sb4 EC:38 Rate is 53 beats/min. Rhythm is regular, Sinus bradycardia. KS interval is normal at sb4 192 msec. QRS interval is normal at 132 msec. QT interval is normal at 404 msec. No Q waves. T waves are Normal. No ST changes noted. Clinical impression: Normal ECG. Interpreted by me. Reviewed by me. Administered Medications: 21:45 Drug: Ondansetron IVP 4 mg Route: IVP; Site: right antecubital; mb9 22:40 Follow up: Response: No adverse reaction; Marked relief of symptoms pf1 21:49 Drug: NS 0.9% IV 1000 ml Route: IV; Rate: 1000 ml; Site: right antecubital; mb9 22:40 Follow up: Response: No adverse reaction; Marked relief of symptoms pf1 23:32 Follow up: Response: No adverse reaction; IV Status: Completed infusion mb9 22:54 Drug: Insulin Regular Human IVP 5 units {Co-Signature: jb4 (Yosvany Torres RN).} Route: pf1 IVP; Site: right antecubital; 23:32 Follow up: Response: No adverse reaction mb9 Disposition Summary: 03/23/23 22:09 Discharge Ordered Location: Home sb4 Problem: new sb4 Symptoms: have improved sb4 Condition: Stable sb4 Diagnosis - Type 1 diabetes mellitus with hyperglycemia sb4 Followup: sb4 - With: Private Physician - When: As needed - Reason: Recheck today's complaints, Continuance of care, Re-evaluation by your physician Discharge Instructions: - Discharge Summary Sheet sb4 Forms: - Medication Reconciliation Form sb4 - Thank You Letter sb4 - Antibiotic Education sb4 - Prescription Opioid Use sb4 - Patient Portal Instructions sb4 - Work release form mb9 Prescriptions: - Zofran 4 mg Oral Tablet - take 1 tablet by ORAL route every 12 hours As needed; 20 tablet; Refills: 0, sb4 Product Selection Permitted Signatures: Dispatcher [employer] EDMarcia Argueta PA-C PA-C sb4 Ximena Ogden RN RN mb9 Jemima Gresham RN RN pf1 Yosvany Torres RN jb4
--- NOTE | 2023-03-23 22:09 | ER ---
Nurse's Notes [facility] Name: Altaf Perez Age: 32 yrs Sex: Male : 1990 Arrival Date: 03/23/2023 Time: 18:27 Bed 11 Private MD: Diagnosis: Type 1 diabetes mellitus with hyperglycemia Presentation: 03/23 18:40 Chief complaint: Patient states: "Today I started having nausea, diarrhea, dizziness, mb9 exhausted, and stomach pain. My head really hurts as well. It feels a lot like DKA and feels like that all over. I checked my sugar and it was 352". Coronavirus screen: Vaccine status: Patient reports receiving the 2nd dose of the covid vaccine. Ebola Screen: No symptoms or risks identified at this time. Initial Sepsis Screen: Does the patient meet any 2 criteria? No. Patient's initial sepsis screen is negative. Does the patient have a suspected source of infection? No. Patient's initial sepsis screen is negative. Risk Assessment: Do you want to hurt yourself or someone else? Patient reports no desire to harm self or others. Onset of symptoms was March 23, 2023. 18:40 Method Of Arrival: Ambulatory mb9 18:40 Acuity: CHRISTIANA 3 mb9 Triage Assessment: 18:43 General: Appears in no apparent distress. uncomfortable, Behavior is calm, cooperative. mb9 Pain: Complains of pain in head Pain does not radiate. Pain currently is 10 out of 10 on a pain scale. Quality of pain is described as throbbing, Pain began suddenly. Neuro: Dawson Agitation-Sedation Scale (RASS): 0 - Alert and Calm Level of Consciousness is awake, alert, obeys commands, Oriented to person, place, time, situation, Appropriate for age Reports dizziness, weakness. Cardiovascular: Patient's skin is warm and dry. Respiratory: Airway is patent Respiratory effort is even, unlabored, Respiratory pattern is regular, symmetrical, Breath sounds are clear bilaterally. GI: Reports diarrhea, nausea. Derm: Skin is pink, warm \\T\\ dry. Musculoskeletal: Range of motion: intact in all extremities. Historical: - Allergies: 18:42 No Known Allergies; mb9 - Home Meds: 18:42 Novolog U-100 Insulin aspart Sub-Q [Active]; mb9 - PMHx: 18:42 Hypercholesterolemia; IDDM; mb9 - Immunization history:: Adult Immunizations up to date. - Social history:: Smoking status: Patient denies any tobacco usage or history of. Screenin:[facility] ED Fall Risk Assessment (Adult) History of falling in the last 3 months, pf1 including since admission No falls in past 3 months (0 pts) Confusion or Disorientation No (0 pts) Intoxicated or Sedated No (0 pts) Impaired Gait No (0 pts) Mobility Assist Device Used No (0 pt) Altered Elimination No (0 pt) Score/Fall Risk Level 0 - 2 = Low Risk Oriented to surroundings, Maintained a safe environment, Educated pt \\T\\ family on fall prevention, incl call for assistance when getting out of bed, Assessed \\T\\ reinforced patient's understanding of fall precautions, Provided non-skid footwear, Hourly rounding (assess needs \\T\\ fall precautionary measures) done, Used ambulatory aids as needed (educated on \\T\\ assisted with), Used gait belt as appropriate. Abuse screen: Denies threats or abuse. Nutritional screening: No deficits noted. Tuberculosis screening: No symptoms or risk factors identified. Assessment: 21:28 General: Appears in no apparent distress. comfortable, well groomed, well developed, pf1 Behavior is calm, cooperative, appropriate for age, quiet. Pain: Denies pain. Neuro: Reports headache since 1600 today while working in a hot kitchen. Neuro: Reports dizziness. Cardiovascular: No deficits noted. Capillary refill < 3 seconds Patient's skin is warm and dry. Respiratory: No deficits noted. Airway is patent Respiratory effort is even, unlabored, Respiratory pattern is regular, symmetrical. GI: Reports nausea. GI: Abdomen is flat, obese. : No deficits noted. No signs and/or symptoms were reported regarding the genitourinary system. EENT: No deficits noted. No signs and/or symptoms were reported regarding the EENT system. Derm: No deficits noted. No signs and/or symptoms reported regarding the dermatologic system. 23:32 Reassessment: No changes from previously documented assessment. Patient and/or family mb9 updated on plan of care and expected duration. Pain level reassessed. Patient is alert, oriented x 3, equal unlabored respirations, skin warm/dry/pink. Vital Signs: 18:40 BP 127 / 80; Pulse 85; Resp 18; Temp 99.1; Pulse Ox 100% on R/A; Weight 81.65 kg; mb9 Height 5 ft. 11 in. ; Pain 7/10; 23:32 BP 108 / 67; Pulse 74; Resp 18; Pulse Ox 100% on R/A; mb9 18:40 Body Mass Index 25.10 (81.65 kg, 180.34 cm) mb9 18:40 Pain Scale: Adult mb9 ED Course: 18:30 Patient arrived in ED. mr 18:30 [facility] sb[facility] 18:30 Felix Curtis MD is Attending Physician. sb4 18:42 Triage completed. mb9 18:44 Arm band placed on. mb9 21:23 No provider procedures requiring assistance completed. Inserted saline lock: 20 gauge pf1 in right antecubital area, using aseptic technique. Blood collected. Patient maintains SpO2 saturation greater than 95% on room air. 21:26 Basic Metabolic Panel Sent. pf1 21:26 CBC with Diff Sent. pf1 21:26 Hepatic Function Sent. pf1 21:26 Lipase Sent. pf1 21:26 Magnesium Sent. pf1 21:26 Phosphorus Sent. pf1 21:36 UAM Sent. pf1 21:43 Bed in low position. Call light in reach. Side rails up X 1. Client placed on mb9 continuous cardiac and pulse oximetry monitoring. NIBP monitoring applied. panel monitor on. 22:01 EKG done, by ED staff, reviewed by Marcia Barber PA-C. mb9 23:33 IV discontinued, intact, bleeding controlled, No redness/swelling at site. Pressure mb9 dressing applied. Administered Medications: 21:45 Drug: Ondansetron IVP 4 mg Route: IVP; Site: right antecubital; mb9 22:40 Follow up: Response: No adverse reaction; Marked relief of symptoms pf1 21:49 Drug: NS 0.9% IV 1000 ml Route: IV; Rate: 1000 ml; Site: right antecubital; mb9 22:40 Follow up: Response: No adverse reaction; Marked relief of symptoms pf1 23:32 Follow up: Response: No adverse reaction; IV Status: Completed infusion mb9 22:54 Drug: Insulin Regular Human IVP 5 units {Co-Signature: jb4 (Yosvany Torres RN).} Route: pf1 IVP; Site: right antecubital; 23:32 Follow up: Response: No adverse reaction mb9 Outcome: 22:09 Discharge ordered by . eugenie 23:32 Discharged to home ambulatory. mb9 23:32 Condition: stable 23:32 Discharge instructions given to patient, Instructed on discharge instructions, follow up and referral plans. Demonstrated understanding of instructions, follow-up care, medications, Prescriptions given X 1. 23:33 Patient left the ED. mb9 Signatures: Ximena Shrestha Marcia Barber, CHELAC PAXimena Shepard RN RN mb9 Jemima Gresham RN RN pf1 Yosvany Torres RN jb4 Corrections: (The following items were deleted from the chart) 18:43 18:40 Chief complaint: Patient states: "Today I started having nausea, diarrhea, mb9 dizziness, exhausted, and stomach pain. My head really hurts as well." mb9 18:43 18:40 Acuity: CHRISTIANA 4 mb9 mb9
[2023-03-23] MEDS ORDERED: INSULIN -REGULAR HUMAN 50 UNIT/0.5 ML ML ONE (22:53)
[2023-03-23 23:51] VITALS: TEMP 99.1; O2SAT 100
[2023-03-23 23:56] VITALS: BP 108/67
--- NOTE | 2023-03-26 13:07 | EKG ---
Test Date: 2023-03-23 Test Time: 21:50:40 Clerical Transcriber: HOLLY MEASUREMENT RESULTS: Intervals: Rate: 53 CO: 192 QRSD: 132 QT: 404 QTc: 379 Novi: P: 55 CO: 192 QRS: 71 T: 60 INTERPRETIVE STATEMENTS: Sinus bradycardia Nonspecific intraventricular block Abnormal ECG Compared to ECG 01/25/2023 16:30:01 Sinus rhythm no longer present Electronically Signed On 03-26-23 13:05:21 CDT by Uziel Noble
== END 2023-03-23 23:33 | disposition home or self-care (01) ==
LOC: ER 18:27
DX: E10.65 Type 1 diabetes mellitus with hyperglycemia (principal); Z79.4 Long term (current) use of insulin
CPT/HCPCS: 96361; 85025; 81001; 80048; 36415; 83735; 84100; 82947 ×2; 80076; 83690; 96375; 96374; 99285; J1815; J2405; J7030; 93005